=== PATIENT | female | born 1955 | race Caucasian/White ===

== ENCOUNTER 2016-10-21 20:12 | Inpatient (IN) ==
[2016-10-21] MEDS ORDERED: ZOFRAN IV ONE ×2 (21:06→23:00)
[2016-10-21] MEDS ORDERED: NS 1,000 ML IV ONE (21:06)
[2016-10-21] MEDS ORDERED: MORPHINE IV ONE (21:06)
--- NOTE | 2016-10-21 21:07 | PROVIDER DOCUMENTATION ---
HPI-Abdominal Pain/GI Problem - General Chief Complaint: Abdominal Pain Stated Complaint: ABD PAIN, KNOT IN STOMACH Time Seen by Provider: 10/21/16 20:50 Source: patient Allergies/Adverse Reactions: Patient Allergies Allergy/AdvReac Type Severity Reaction Status Date / Time No Known Allergies Allergy Verified 10/21/16 22:01 Home Medications: Home Medication List Medication Instructions Recorded Confirmed Last Taken Type Atenolol 50 mg PO DAILY 10/21/16 10/21/16 10/19/16 History Furosemide [Lasix] 40 mg PO DAILY 10/21/16 10/21/16 10/19/16 History Gabapentin 300 mg PO TID 10/21/16 10/21/16 10/19/16 History Glipizide 10 mg PO DAILY 10/21/16 10/21/16 10/19/16 History Hydrochlorothiazide 25 mg PO DAILY 10/21/16 10/21/16 10/19/16 History Levothyroxine [Synthroid] 150 microgm PO DAILY 10/21/16 10/21/16 10/19/16 History Metformin [Glucophage] 1,000 mg PO BID CC 10/21/16 10/21/16 10/19/16 History Naproxen 500 mg PO BID 10/21/16 10/21/16 10/19/16 History Nortriptyline HCl [Pamelor] 25 mg PO QPM 10/21/16 10/21/16 10/19/16 History Pantoprazole [Protonix] 40 mg PO DAILY 10/21/16 10/21/16 10/19/16 History Potassium Chloride E.r. [Klor-Con] 20 meq PO DAILY 10/21/16 10/21/16 10/19/16 History - History of Present Illness-ABD Nature of Presenting Problems: 61 year old obese WF presents with c/o umbilical abd pain with nausea, onset 2 days ago. pt reports last BM Saturday, diarrhea. pt reports she has not been eating, drinking since Saturday due to the severe nausea. Lips/mouth dry, cracked , mild/moderate distress. Subjective fever/chills. SHX: c-sect x 2, exploratory lap at the age of 13 for a ruptured appendix. Abdominal Pain Onset Location: reports: periumbilical Pain Radiation: reports: no radiation Quality of Pain: reports: aching, dull Severity in ED: reports: mild, moderate Onset/Duration: reports: 2 days ago Timing: reports: still present, constant, getting worse Activities at Onset: reports: none Exposure to sick contacts?: No Modifying Factors: improves with: nothing Associated Symptoms: reports: fever/chills (subjective), nausea, swelling/mass in abdomen. denies: vomiting, weakness Last BM: 2 days ago (diarrhea) Dark Stools Present?: reports: none noticed. denies: maroon, black, tarry, bright red blood Rectal Bleeding: reports: none. denies: bleeding without stool, bright red blood on paper, blood mixed with stool, blood streaks on stool, bloody diarrhea # of Diarrhea Episodes: 1 Rectal Pain: reports: none. denies: known anal fissure(s), known hemorrhoids, fistula, abscess # of Vomiting Episodes: 0 Emesis Description: reports: none Bruising or Bleeding Gums?: No Similar Symptoms Previously?: No Recently seen or treated by another doctor?: No Review of Systems - Adult - REVIEW OF SYSTEMS - ADULT Constitutional: reports: no symptoms reported. denies: chills, fever, fatique Eyes: reports: no symptoms reported. denies: discharge, blurred vision, double vision Ears, Nose, Mouth & Throat: reports: no symptoms reported. denies: ear discharge, ear pain, nose pain, loose teeth, throat pain, throat swelling Cardiovascular: reports: no symptoms reported. denies: chest pain, palpitations , syncope Respiratory: reports: no symptoms reported. denies: chronic cough, cough, shortness of breath, wheezing Gastrointestinal: reports: see HPI, abdominal pain, diarrhea, nausea, poor appetite. denies: hematemesis, constipation, difficulty swallowing, frequent heartburn, rectal bleeding, vomiting Genitourinary: reports: no symptoms reported. denies: dysuria, hematuria, urgency Musculoskeletal: reports: no symptoms reported. denies: bone pain, joint pain, joint swelling, neck pain Integumentary: reports: no symptoms reported. denies: hives, itching, rash, skin sores/ulcer Neurological: reports: no symptoms reported. denies: ataxia, numbness, paresthesia, seizure, tremors Psychiatric: reports: no symptoms reported Endocrine: reports: no symptoms reported Hematologic/Lymphatic: reports: no symptoms reported Allergic/Immunologic: reports: no symptoms reported All Other Systems: Reviewed and Negative Past History - Adult - PAST MEDICAL HISTORY-ADULT Review of Records: reports: Old Records Reviewed, Nursing Assessment Review, Medications Reviewed, Social history reviewed & non-contributory. Major Childhood Illnesses: reports: denies history Cardiovascular: reports: denies history Respiratory: reports: denies history Gastrointestinal: reports: GERD Obstetrical/Gynecological: reports: denies history Genitourinary: reports: denies history Musculoskeletal: reports: denies history Neurological: reports: denies history Endocrine/Immune: reports: Diabetes, thyroid disorder Diabetes Type: Type 2 Other Conditions: reports: denies history - PRIOR SURGERIES/PROCEDURES Surgical/Procedure History: reports: , bowel surgery - FAMILY HISTORY Family History: reviewed, not pertinent - SOCIAL HISTORY Smoking: denies, non-smoker Substance Use: none/never Alcohol Use Frequency: never Physical Exam-General - PHYSICAL EXAM-ADULT Initial Vital Signs Reviewed: Yes - CONSTITUTIONAL General Appearance: appears well, alert, mild distress, moderate distress, obese . negative: no apparent distress, severe distress, lethargic, slow to respond, obtunded, combative - EYES Eyes: pink conjunctivae. negative: conjuctival exudate, pale conjunctivae, photophobia, sclera injected, scleral icterus, subconjunctival hemorrhage - HEAD, EARS, NOSE, MOUTH & THROAT HENMT: normocephalic/atraumatic, moist mucous membranes, normal ENT inspection - NECK Neck: non-tender, full range of motion, supple, normal inspection - RESPIRATORY Respiratory: chest non-tender, lungs clear, normal breath sounds, no pleuratic chest pain, no respiratory distress, no accessory muscle use. negative: respiratory distress, decreased breath sounds, accessory muscle use, crackles, rales, rhonchi, stridor, wheezing - CARDIOVASCULAR Cardiovascular: normal peripheral pulses, regular rate, rhythm - GASTROINTESTINAL (ABDOMEN) Abdominal Exam: normal bowel sounds, no pulsatile mass, distended, tenderness, mass (left lateral to the umbilicus). negative: non tender, soft, guarding, rigid - GENITOURINARY Female Genitalia/Pelvic Exam: deferred Rectal Exam: deferred Hemoccult Exam: deferred - LYMPHATIC Lymphatic: no adenopathy - MUSCULOSKELETAL Back Exam: normal inspection, no CVA tenderness, no vertebral tenderness. negative: CVA tenderness, decreased range of motion, swelling, vertebral tenderness Extremity: normal range of motion, non-tender, normal gait, normal inspection, no pedal edema, no calf tenderness, normal capillary refill. negative: deformity, erythema, inflammation Peripheral Pulses: radial (R): 3+, radial (L): 3+, dorsalis-pedis (R): 3+, dorsalis-pedis (L): 3+ - SKIN Integumentary: normal color, normal turgor, warm/dry - NEUROLOGIC Neurologic: grossly normal, no motor/sensory deficits - PSYCHIATRIC Psych/Mental Status: normal mood/affect, normal thought content, normal thought process, oriented x 3 Progress - PLAN OF CARE/RESULTS Progress/Plan/Lab Results: Laboratory Tests 10/21/16 10/21/16 10/21/16 21:30 21:30 21:30 WBC 13.15 H RBC 5.28 Hgb 15.0 Hct 47.2 H MCV 89.4 MCH 28.4 MCHC 31.8 L RDW Std Deviation 14.1 Plt Count 274 MPV 9.5 Immature Gran % (Auto) 0.2 Neut % (Auto) 75.0 Lymph % (Auto) 14.9 L Cataño % (Auto) 7.1 Eos % (Auto) 2.4 Baso % (Auto) 0.4 Immature Gran # (Auto) 0.02 Neut # (Auto) 9.87 H Lymph # (Auto) 1.96 Cataño # (Auto) 0.93 H Eos # (Auto) 0.32 Baso # (Auto) 0.05 Sodium 135 L Potassium 3.8 Chloride 93 L Carbon Dioxide 28 Anion Gap 14 BUN 17 Creatinine 1.3 H Estimated GFR/1.73 m2 41 BUN/Creatinine Ratio 13 Glucose 137 H Calculated Osmolality 274 Calcium 9.3 Total Bilirubin 0.75 AST 15 ALT 14 Alkaline Phosphatase 84 Total Protein 7.8 Albumin 4.2 Globulin 3.6 Albumin/Globulin Ratio 1.2 Amylase 50 Lipase 16 Plasma Lactate 1.7 Acetone Level NEGATIVE Orders Category Date Time Status NPO Diet 10/21/16 20:21 Active ABDOMEN/PELVIS W/O CONTRAST [CT] Stat Exams 10/21/16 21:05 Taken flat [FLAT/UPRIGHT ABD/1 VIEW CHEST] [RAD] Stat Exams 10/21/16 20:22 Taken ACETONE SERUM [CHEM] Stat Lab 10/21/16 21:30 Completed AMYLASE [CHEM] Stat Lab 10/21/16 21:30 Completed CBC WITH ELECTRONIC DIFF [HEME] Stat Lab 10/21/16 21:30 Completed COMPREHENSIVE METABOLIC PANEL [CHEM] Stat Lab 10/21/16 21:30 Completed LACTATE, PLASMA [CHEM] Stat Lab 10/21/16 21:30 Completed LIPASE [CHEM] Stat Lab 10/21/16 21:30 Completed URINALYSIS W/POSS RFLX CULT [URINALYSIS] Stat Lab 10/21/16 20:21 Uncollected 0.9% Sodium Chloride Inj [Ns] 1,000 ml Med 10/21/16 21:06 Discontinued IV 999 mls/hr Hydromorphone [Dilaudid] Med 10/21/16 23:00 Discontinued 0.5 mg IV NOW ONE Morphine Med 10/21/16 21:06 Discontinued 4 mg IV NOW ONE Ondansetron [Zofran] Med 10/21/16 21:06 Discontinued 4 mg IV NOW ONE Ondansetron [Zofran] Med 10/21/16 23:00 Discontinued 4 mg IV NOW ONE Vital Signs - 24 hr 10/21/16 20:18 Temperature 98.0 F Pulse Rate 58 L Respiratory 18 Rate Blood Pressure 146/58 O2 Sat by Pulse 94 L Oximetry Reviewed radiology, labs, H&P with Dr. Guzman, agrees with plan of care and treatment. - REASSESSMENT Reassessment #1 Time Reassessed: 23:14 Status: improving (some pain relief with) - XRAY 1 XRAY Study: Abdomen Impression: Abnormal (air fluid levels, dilated loops of bowel. per Dr. Guzman.) - CT/MRI 1 CT Study: Abdomen Impression: Abnormal (hernia with bowle and atlease a partial SBO that appears to be secondary to the hernia. per Dr. Pritchett, report called to Dr. Guzman by Dr. Pritchett.) - CONSULTS/PCP/HOSPITALIST Notification #1 *Consult/PCP/Hospitalist*: Dr. Acuña Time Discussed: 23:11 Consult Disposition: Admit (admit to hospitalist and will consult in AM.) #2 Consult: Dr. Dietrich Time Discussed: 23:30 Consult Disposition: Will see in ED, Admit Departure - Departure Time of Disposition Order: 23:32 DIAGNOSIS: SBO (small bowel obstruction), Hernia Disposition: ADMITTED INPATIENT 09 Certified Medical Emergency: Emergent Condition: Stable Attestation - Physician/ KEYANA Attestation Patient care was provided by Advanced Practice Provider:: Yes Advanced Practice Provider:: Ángel Duggan Advanced Practice Provider documentation review:: The Mid-level provider documentation, treatment plan and medical decision making was reviewed by the physician who agrees with all treatment and medical decision making by the MLP.
[2016-10-21 21:45] LABS: MANUAL DIFF NEEDED? NO
[2016-10-21 21:48] LABS: BASO% 0.4 % (0.0-0.8); EOS# 0.32 X1000 (0.0-0.7); EOS% 2.4 % (0.0-10.0); HEMATOCRIT 47.2 % (37.0-47.0); IMM GRAN# 0.02 X1000 (0.0-0.04); IMM GRAN% 0.2 % (0.0-0.5); LYMPH# 1.96 X1000 (1.2-3.4); LYMPH% 14.9 % (20.5-51.1); MCH 28.4 PG (27-31); MCHC 31.8 g/dL (33-37); MCV 89.4 FL (81-99); MONO# 0.93 X1000 (0.11-0.59); MONO% 7.1 % (1.7-9.3); MPV 9.5 FL (7.4-10.4); PLT 274 X1000 (130-400); RBC 5.28 XMIL (4.2-5.4)
[2016-10-21 21:56] LABS: ACETONE SERUM NEGATIVE (NEGATIVE)
[2016-10-21 22:04] LABS: AGAP 14; ALBUMIN 4.2 g/dL (3.5-5.0); ALKALINE PHOSPHATASE 84 U/L (32-104); AMYLASE 50 U/L (20-200); BUN 17 mg/dL (8-22); CALCIUM 9.3 mg/dL (8.8-10.2); CHLORIDE 93 mmol/L (98-107); COSMO 274; GOT 15 U/L (10-30); GPT 14 U/L (10-36); LIPASE 16 U/L (13-60); POTASSIUM 3.8 mmol/L (3.5-5.1); SODIUM 135 mmol/L (136-145); TCO2 28 mmol/L (25-35); TOTAL BILIRUBIN 0.75 mg/dL (0.20-1.00); TOTAL PROTEIN 7.8 g/dL (6.3-8.3)
[2016-10-21] MEDS ORDERED: DILAUDID IV ONE ×2 (23:00→23:14)
[2016-10-21] MEDS ORDERED: ZOSYN 3.375 GM/NS 50 ML IV ONE (23:19)
--- NOTE | 2016-10-21 23:51 | ED EKG INTERP ---
EKG Interpretation - EKG Time of EKG reading by physician:: 23:40 EKG Read and Signed by:: Tree Guzman EKG Interpretation (*Must complete 3 of following elements*): Abnormal (RBBB; L anterior fascicular block; Bifascicular block; Moderate voltage criteria for LVH , may be normal variant; Possible lateral infarct, age undetermined) Rate: 67 Rhythm: NSR Attestation - Scribe Verification/Attestation Scribe:: Kranthi Natarajan Acting as Scribe for:: Tree Guzman Scribe documention review:: This chart was documented by a scribe and accurately reflects the service the provider performed and the decisions made by the provider.
[2016-10-22] MEDS ORDERED: MARCAINE 0.25% PF/EPI 1:200,000 ONE (00:46)
[2016-10-22 00:56] LABS: HEMOGLOBIN A1C 6.2 % (4.8-6.0)
[2016-10-22] MEDS ORDERED: FENTANYL ONE (02:29)
[2016-10-22] MEDS ORDERED: DIPRIVAN 1% ONE (02:29)
[2016-10-22] MEDS: MORPHINE ONE ×2 (02:36→02:49)
[2016-10-22] MEDS ORDERED: TORADOL ONE (02:59)
[2016-10-22] MEDS ORDERED: LR 1,000 ML ONE (03:00)
--- NOTE | 2016-10-22 03:22 | HISTORY AND PHYSICAL ---
REASON FOR ADMISSION: A 2-day history of periumbilical pain. HISTORY OF PRESENT ILLNESS: Ms. Юлия Nuno is a 61-year-old lady with a past medical history of type 2 diabetes, hypertension, and hypothyroidism who comes in today complaining of a 2- day history of periumbilical pain which is sharp constant, worse with movement. All this started after eating her dinner. She reports having 6 episodes of nonbloody diarrhea prior to the onset of her pain. She denies any vomiting occurred with this. She reported that late that evening, she noticed "a lump just below her umbilicus" and found it was very tender when she touched it. Ever since then, the pain has been constant and getting worse. Patient reports that since the early hours of Saturday, she has had not passed any gas or had any bowel movements. She has tried drinking water but she said this makes her feel nauseous. No vomiting per se. No fever. No chills. No genitourinary complaints. No cardiorespiratory complaints. No polyuria, polydipsia, or polyphagia. No lightheadedness. No neurological complaints. REVIEW OF SYSTEMS: Twelve system review is negative. Positive findings as per HPI. ALLERGIES: None. MEDICATIONS: She is on atenolol 50 mg daily, gabapentin 200 mg t.i.d., glipizide 10 mg daily, metformin 1000 mg b.i.d., hydrochlorothiazide 25 mg daily, potassium 20 mEq daily, Lasix 40 mg daily, naproxen 500 mg b.i.d., Tylenol 25 mg q.p.m., Protonix 40 mg daily, levothyroxine 150 mcg daily. FAMILY HISTORY: Notable for diabetes. SOCIAL HISTORY: Does not smoke, drink, or use drugs. She is . PAST SURGICAL HISTORY: She only had a and appendectomy. LABORATORY WORK: White count 13,000, hemoglobin and hematocrit 15.7, platelets 274,000. Sodium 135, BUN 17, creatinine 1.3, glucose 137. Lipase, lactate, amylase all negative. Hepatic function tests all negative. Acetone negative. The patient's EKG shows normal sinus rhythm with a right bundle-branch block with left axis deviation PHYSICAL EXAMINATION: GENERAL: Morbidly obese, middle-aged, woman who is in mild distress from her pain. She is A and O x3 with normal mood and affect. She is anxious. VITAL SIGNS: Blood pressure 99/74, pulse is 68, respirations 18, temperature is 98, she is 93% on room air. HEENT: Head is normocephalic, atraumatic. Eyes, PERRLA, EOMI. She is anicteric, not pale. ENT and oropharynx exam is grossly normal. NECK: Supple. No JVD. No carotid bruit. No thyromegaly. CHEST: Clear to auscultation with good air entry in both lung collins. CARDIOVASCULAR: First and second heart sounds heard. No gallops, murmurs, or rubs. Rhythm is regular. ABDOMEN: Protuberant, soft, with tenderness confined to the left infraumbilical area. There is notable swelling in that area and it is firm to touch. On coughing, there is slight pulsatile expansile fremitus noticed. Bowel sounds are not heard. No organomegaly noted. Tenderness confined to the left lower quadrant and suprapubic areas. No rebound appreciated. The swelling is not reducible. I can get above it and below it. RECTAL: Examination is deferred. EXTREMITIES: No edema, clubbing, or cyanosis. Pulses distally intact with good volume. NEUROLOGICAL: No focal deficits. SKIN: Intact. No breakdown, lesions, or erythema. MUSCULOSKELETAL: Muscular examination is grossly normal. ASSESSMENT: 1. Incarcerated umbilical hernia. 2. Small bowel obstruction secondary to #1. 3. Type 2 diabetes. 4. Hypothyroidism. 5. Hypertension. PLAN: At this time, the patient was seen by a doctor in the ER and he is going to take her for urgent surgery. From my medical standpoint, patient is at usual risk for any cardiovascular event and can complete her surgery due to the emergent nature of her symptoms. I will start her on a low sliding scale. We will hold diuretics and blood pressure medication due to the fact that her blood pressure is marginal at this point in time. However, we only continue with low-dose beta blockers so she does not go into beta-jamila withdrawal. We will adjust the dose of her IV thyroid medication to a much lower dose, being that they usually the oral bioavailability of thyroid medication is much lower. Hydrate patient for now until blood pressure is slightly elevated and if need be, may resume Lasix. DVT prophylaxis for now is SCDs and surgeon is to decide if Lovenox can be initiated at a later date. Empiric antibiotics (i.e., Zosyn) have been started. I sincerely doubt this patient does not have early onset of small bowel gangrene. Lactate levels are normal. We will repeat EKG in the morning to ensure patient does not progress to full heart block. This is because her EKG shows right bundle-branch block with left anterior hemiblock. Thus, we need to be very cautious with the use of beta blockers.
[2016-10-22] MEDS ORDERED: MORPHINE IV PRN ×2 (04:07→04:18)
[2016-10-22] MEDS ORDERED: SODIUM CHLORIDE 0.9% INJ ONE ×2 (04:07)
[2016-10-22] MEDS ORDERED: DUONEB (A & A) INH PRN (04:07)
[2016-10-22] MEDS ORDERED: TYLENOL PO PRN (04:07)
[2016-10-22] MEDS ORDERED: ZOFRAN IV PRN (04:07)
[2016-10-22] MEDS ORDERED: HUMALOG SUBQ ONE (04:07)
[2016-10-22] MEDS ORDERED: NS 1,000 ML IV SCH (04:07)
[2016-10-22] MEDS ORDERED: NORCO-10 PO PRN (04:21)
[2016-10-22] MEDS ORDERED: LR 1,000 ML IV SCH (04:30)
[2016-10-22] MEDS ORDERED: D50W SYRINGE IV PRN (04:35)
[2016-10-22] MEDS: OFIRMEV 1000 MG/ISOTONIC SOLN 100 ML IV SCH ×4 (04:39→23:47)
--- NOTE | 2016-10-22 04:44 | CONSULTATION ---
HISTORY OF PRESENT ILLNESS: Ms. Юлия Nuno is a 61-year-old, white female, a patient of Dr. Elizalde, who has a 3-day history of periumbilical pain and abdominal distention. She has not eaten well in the last 3 days. She has had increasing pain in this area and presented to [facility] Emergency Department. She was evaluated by the ED staff including a CT scan of her abdomen and pelvis which suggested a strangulated hernia in the periumbilical area and a small bowel obstruction. We were asked to see her urgently for a strangulated hernia. She has had previous abdominal surgery. PAST MEDICAL HISTORY: , open appendectomy, hypertension, fibromyalgia, osteoporosis. MEDICATIONS: Naproxen, hydrochlorothiazide, glipizide, Protonix, atenolol, Glucophage, Pamelor, Lasix, gabapentin, potassium chloride, and Synthroid. ALLERGIES: No known drug allergies. SOCIAL HISTORY: She is retired. Lives in [place]. Her was at the bedside. She does not smoke. REVIEW OF SYSTEMS: A 14-point review of systems was performed and was essentially negative except for the history of present illness. FAMILY HISTORY: Noncontributory. PHYSICAL EXAMINATION: GENERAL: Ms. Nuno is an older, white female. She is overweight. She is in no acute distress. She is awake and cooperative. HEENT: She has nasal cannula in place. No jaundice. No oral lesions. LYMPHATICS: No cervical or supraclavicular lymphadenopathy. HEART: Has a regular rate. LUNGS: Clear to auscultation and percussion bilaterally. ABDOMEN: Distended but not tightly. She had a tender mass in the periumbilical area. She has a well-healed lower midline incision. RECTAL/VAGINAL: Examinations were not performed. EXTREMITIES: She does have palpable peripheral pulses. No peripheral edema. NEUROLOGICAL: She is alert and oriented x3, and appropriate. DIAGNOSTIC DATA: CT scan shows a strangulated hernia in the periumbilical area which could be related to her previous lower midline incision. IMPRESSION: Strangulated umbilical or ventral (incisional) hernia. PLAN: Urgent repair, possibly using mesh, of this strangulated hernia that contains small bowel and is also causing a small bowel obstruction. I have discussed the procedure in detail with the patient and her at the bedside in the emergency department. We specifically discussed risks of surgery which include bleeding, infection, recurrent hernia, possible gangrenous bowel requiring resection of small bowel, possible use of mesh, possible wound infection or infection of the mesh requiring its removal. She understands the need for this urgent surgery and its risks, and she wants to proceed.
[2016-10-22] MEDS: PROTONIX IV SCH (04:46)
[2016-10-22] MEDS ORDERED: SYNTHROID IV ONE (05:00)
[2016-10-22] MEDS: LOPRESSOR IV SCH ×4 (05:02→23:54)
[2016-10-22] MEDS: LOVENOX SUBQ SCH (05:02)
[2016-10-22] MEDS: ZOSYN 3.375 GM/NS 50 ML IV SCH ×4 (05:02→23:47)
--- NOTE | 2016-10-22 05:14 | OPERATIVE NOTE ---
PROCEDURE DATE: 10/22/2016 PREOPERATIVE DIAGNOSIS: Strangulated ventral hernia. POSTOPERATIVE DIAGNOSIS: Strangulated ventral hernia. PRINCIPAL PROCEDURE: Open repair of strangulated ventral hernia using composite Parietex mesh. SURGEON: Angelique Fountain MD. TIE IN MACHINE OPERATOR: NADIYA Choi. ANESTHESIA: General in addition to local anesthetic. ESTIMATED BLOOD LOSS: 25 mL. DRAINS: None. INDICATIONS: Ms. Юлия Nuno is a 61-year-old, overweight, white female who had a 3-day history of periumbilical discomfort and also abdominal distention with some nausea. She had not eaten well in the last 3 days. She did present to our emergency department because of increasing lower abdominal pain. A CT scan was performed which suggested a strangulated hernia, as did her exam. Urgent operation was recommended. FINDINGS: She did have a knuckle of small bowel in the strangulated hernia and it was compromised but I felt that it would live as we released the pressure of the strangulated hernia so I placed it back intra-abdominally and decided to use a 6.4 cm in diameter, round, reinforced composite Parietex mesh to repair this hernia. DESCRIPTION OF PROCEDURE: The patient was brought to the operating room, placed supine, received general anesthesia, and was intubated. Her entire abdomen was prepped and draped within the sterile field. She had already received IV Zosyn. You could feel the strangulated hernia. The overlying skin looked normal. We made a midline incision just below the umbilicus in a previous well-healed scar for a distance of about 4-6 cm. It was carried down through the skin and subcutaneous tissue to the strangulated hernia. The hernia was a fascial defect that was small just below the umbilicus within the midline. The hernia itself contained omentum and a loop of small bowel which was compromised. It was bruised and dark but I felt, as we relieved the pressure, that it looked more viable and I felt that we did not have to resect it. I felt that it would be viable and felt good enough about this that I even repaired the fascial defect using mesh. We will have to watch her closely. I reduced the hernia contents. I used a 6.4 cm piece of mesh and placed it intra-abdominally. I secured it to the fascial defect with [id number] Prolene stitches. I closed the fascial defect over the mesh. I used 3-0 popoff Vicryl stitches to reapproximate the subcutaneous tissue. Then I closed the skin with a skin clip network project manager. It must be noted that we thoroughly irrigated the wound prior to its closure. Xeroform followed by dry dressings were applied. Plans are for her to go to the recovery room. She will be hospitalized and we will watch her clinically. I spoke with her after the procedure.
--- NOTE | 2016-10-22 05:44 | EKG Report ---
Test Performed on : 10/21/2016 11:40:22 PM Test Reason : admission Blood Pressure : / mmHG Vent. Rate : 067 BPM Atrial Rate : 067 BPM P-R Int : 192 ms QRS Dur : 148 ms QT Int : 424 ms P-R-T Axes : 042 -71 009 degrees QTc Int : 448 ms Normal sinus rhythm. Right bundle branch block Left anterior fascicular block Bifascicular block Moderate voltage criteria for LVH, may be normal variant Possible Lateral infarct , age undetermined Abnormal ECG No previous ECGs available Unconfirmed Result
[2016-10-22 06:28] LABS: MANUAL DIFF NEEDED? NO
[2016-10-22 06:48] LABS: CALCIUM 8.7 mg/dL (8.8-10.2); POTASSIUM 4.6 mmol/L (3.5-5.1)
[2016-10-22 06:58] LABS: BASO% 0.3 % (0.0-0.8); EOS# 0.06 X1000 (0.0-0.7); EOS% 0.4 % (0.0-10.0); HEMOGLOBIN 12.9 g/dL (12.0-16.0); IMM GRAN# 0.03 X1000 (0.0-0.04); IMM GRAN% 0.2 % (0.0-0.5); LYMPH# 1.35 X1000 (1.2-3.4); LYMPH% 9.9 % (20.5-51.1); MCH 28.7 PG (27-31); MCHC 31.5 g/dL (33-37); MCV 91.1 FL (81-99); MONO% 5.2 % (1.7-9.3); PLT 228 X1000 (130-400)
--- NOTE | 2016-10-22 07:41 | PROGRESS NOTE ---
DATE: 10/22/2016 SUBJECTIVE: Ms. Юлия Nuno early this morning underwent an open repair of a strangulated ventral hernia using mesh. She did have a segment of compromised bowel that was in the hernia, but I felt that it would remain viable and therefore did not do a small bowel resection. She is awake in her room later this morning. She clinically feels better. OBJECTIVE: Her heart rate is 71. Blood pressure was 108/76, O2 saturation 94%. She does not have a Reyes catheter tube in. She is voiding without difficulty. Her wound is dressed. She has no evidence of acute abdomen. She still remains distended. The hernia had caused small bowel obstruction. PLAN: We will continue IV fluids, Toradol and pain medication. She is also on IV Tylenol. Will begin clear liquids and follow her clinically.
[2016-10-22 07:55] LABS: URINE MICRO REVIEW NEEDED? NO; URINE SOURCE CATH
[2016-10-22 08:03] LABS: BILIRUBIN URINE NEGATIVE (NEGATIVE); BLOOD URINE NEGATIVE (NEGATIVE); COLOR YELLOW; GLUCOSE URINE NEGATIVE (NEGATIVE); LEUKOCYTES URINE NEGATIVE (NEGATIVE); NITRITE URINE NEGATIVE (NEGATIVE); PH URINE 5.5; PROTEIN URINE TRACE mg/dL (NEGATIVE); SP GRAVITY URINE 1.026; TURBIDITY URINE CLEAR (CLEAR); UR EPITHELIAL CELLS <10 /HPF (<10); URINE BACTERIA NEGATIVE /HPF; URINE RBC <10 /HPF (<10); URINE WBC <10 /HPF (<10); UROBILINOGEN URINE NORMAL (NORMAL)
--- NOTE | 2016-10-22 08:04 | EKG Report ---
Test Performed on : 10/22/2016 06:50:20 AM Test Reason : abn ekg Blood Pressure : / mmHG Vent. Rate : 067 BPM Atrial Rate : 067 BPM P-R Int : 200 ms QRS Dur : 148 ms QT Int : 444 ms P-R-T Axes : 049 -63 012 degrees QTc Int : 469 ms Normal sinus rhythm. Right bundle branch block Left anterior fascicular block Bifascicular block Minimal voltage criteria for LVH, may be normal variant Abnormal ECG When compared with ECG of 21-OCT-2016 23:40, (Unconfirmed) Borderline criteria for Lateral infarct are no longer present Confirmed by Pelon DAVIS, Martínez Florian ([id number]) on 10/22/2016 4:27:04 PM
--- NOTE | 2016-10-22 08:15 | Diag Imaging Result Document ---
PROCEDURE NAME: FLAT/UPRIGHT ABD/1 VIEW CHEST - 10/21/2016 FLAT AND UPRIGHT ABDOMEN: FINDINGS: There is some gas and stool in the ascending colon. The stomach is not distended. There are small-bowel loops distended with gas in the left upper quadrant and mid abdomen. There are no previous studies. There is no evidence of organomegaly or mass. IMPRESSION: Early or partial small-bowel obstruction. PA CHEST: FINDINGS: The heart size is slightly enlarged. There is no evidence of acute pulmonary disease. Compared to 09/19/2016, there has been no significant change in the appearance of the chest. IMPRESSION: Stable chest.
[2016-10-22] MEDS ORDERED: XYLOCAINE-MPF 2% ONE (08:48)
[2016-10-22] MEDS ORDERED: NEO-SYNEPHRINE ONE (08:48)
[2016-10-22] MEDS ORDERED: NORCURON ONE (08:48)
[2016-10-22] MEDS ORDERED: EPHEDRINE ONE (08:48)
[2016-10-22] MEDS ORDERED: NEOSTIGMINE ONE (08:48)
[2016-10-22] MEDS ORDERED: ROBINUL ONE (08:48)
[2016-10-22] MEDS ORDERED: ZOFRAN ONE (08:48)
[2016-10-22] MEDS ORDERED: EXTENSION SET 32 IN 4522 ONE (08:49)
[2016-10-22] MEDS ORDERED: QUELICIN (DOSE) ONE (08:49)
[2016-10-22] MEDS ORDERED: ANESTHESIA PB SET 88 IN 5742 ONE (08:49)
[2016-10-22] MEDS: NEURONTIN PO SCH ×3 (08:49→20:43)
[2016-10-22] MEDS: TORADOL IV SCH ×3 (08:49→20:47)
[2016-10-22] MEDS ORDERED: CLAVE SECONDARY SET 11953 ONE (08:49)
[2016-10-22] MEDS ORDERED: DECADRON ONE (08:49)
[2016-10-22] MEDS ORDERED: LR 2,000 ML ONE (08:49)
[2016-10-22] MEDS: PERIDEX MT SCH ×2 (08:49→20:43)
[2016-10-22] MEDS: MORPHINE IV PRN ×3 (08:57→16:46)
--- NOTE | 2016-10-22 10:05 | Diag Imaging Result Document ---
PROCEDURE NAME: ABDOMEN/PELVIS W/O CONTRAST - 10/21/2016 CT ABDOMEN AND PELVIS WITHOUT CONTRAST: COMPARISON: None available. FINDINGS: There is a moderate size umbilical hernia containing mesenteric fat and a loop of small bowel. Just proximal to this herniated loop of bowel, there is moderate small-bowel distention with air-fluid levels indicating associated obstruction. Distal to the hernia, the small bowel is nondistended. There is a small amount of free fluid that is layering in the pelvis. No free abdominal gas is identified. There is mild uncomplicated diverticulosis coli. The remainder of the solid viscera of the abdomen and pelvis and the remainder of the GI tract is essentially unremarkable. IMPRESSION: 1. Moderate size umbilical hernia with a small loop of incarcerated small bowel and associated small-bowel obstruction as described above. 2. This critical result was called to Dr. Guzman in the emergency department at 10:[address] David Pritchett.
[2016-10-22] MEDS: HUMALOG SUBQ SCH ×3 (11:52→20:46)
[2016-10-22] MEDS: LR 1,000 ML IV SCH ×2 (17:34→20:43)
[2016-10-23] MEDS ORDERED: NS 500 ML IV ONE ×2 (01:18→03:20)
[2016-10-23 01:56] LABS: CALCIUM 8.8 mg/dL (8.8-10.2); POTASSIUM 4.5 mmol/L (3.5-5.1)
[2016-10-23] MEDS: PROTONIX IV SCH (03:08)
[2016-10-23] MEDS: LR 1,000 ML IV SCH ×4 (04:14→23:39)
[2016-10-23] MEDS: LOPRESSOR IV SCH ×2 (05:07→17:59)
[2016-10-23] MEDS: LOVENOX SUBQ SCH (05:10)
[2016-10-23] MEDS: ZOSYN 3.375 GM/NS 50 ML IV SCH (05:10)
[2016-10-23 05:39] LABS: MANUAL DIFF NEEDED? NO
[2016-10-23 05:57] LABS: BASO% 0.3 % (0.0-0.8); EOS# 0.19 X1000 (0.0-0.7); EOS% 2.2 % (0.0-10.0); HEMOGLOBIN 10.4 g/dL (12.0-16.0); LYMPH# 1.62 X1000 (1.2-3.4); LYMPH% 18.4 % (20.5-51.1); MCHC 30.6 g/dL (33-37); MCV 94.7 FL (81-99); MONO# 0.93 X1000 (0.11-0.59); MONO% 10.6 % (1.7-9.3); MPV 9.8 FL (7.4-10.4); NEUT% 68.5 % (42.2-75.2); PLT 168 X1000 (130-400); RBC 3.59 XMIL (4.2-5.4)
[2016-10-23 06:05] LABS: ALBUMIN 3.2 g/dL (3.5-5.0); CALCIUM 8.1 mg/dL (8.8-10.2); POTASSIUM 4.5 mmol/L (3.5-5.1); TOTAL BILIRUBIN 0.52 mg/dL (0.20-1.00); TOTAL PROTEIN 6.2 g/dL (6.3-8.3)
[2016-10-23] MEDS: HUMALOG SUBQ SCH ×3 (06:13→22:14)
[2016-10-23] MEDS: PERIDEX MT SCH ×2 (08:52→23:37)
[2016-10-23] MEDS: MORPHINE IV PRN (08:52)
[2016-10-23] MEDS: NEURONTIN PO SCH ×3 (08:57→22:14)
[2016-10-23] MEDS: ZOSYN 2.25 GM/NS 50 ML IV SCH ×2 (09:06→18:03)
[2016-10-23 10:09] LABS: CALCIUM 8.3 mg/dL (8.8-10.2); POTASSIUM 4.6 mmol/L (3.5-5.1)
[2016-10-23 11:51] LABS: UR CREAT RANDOM 153.7 mg/dL (11-20); UR PROT RANDOM 84.4 mg/dL
[2016-10-23 12:06] LABS: UR SODIUM < 10 mmoll
--- NOTE | 2016-10-23 13:31 | Diag Imaging Result Document ---
PROCEDURE NAME: US RENAL 2 (RETROPER) COMPLETE - 10/23/2016 RENAL ULTRASOUND: COMPARISON: None available. FINDINGS: The kidneys are grossly normal in echotexture with no discrete renal mass or hydronephrosis. The right kidney measures 10.7 cm and the left kidney measures 9.8 cm in the greatest longitudinal axes. The right renal cortex measures up to 0.8 cm and the left renal cortex measures up to 0.7 cm in thickness. The urinary bladder was obscured by an overlying surgical bandage. IMPRESSION: Grossly unremarkable renal ultrasound.
--- NOTE | 2016-10-23 14:23 | CONSULTATION ---
DATE OF CONSULTATION: 10/23/2016 REASON FOR ADMISSION: Periumbilical pain with small-bowel obstruction. REASON FOR CONSULT: Acute kidney injury. CONSULTING PHYSICIAN: Dr. Quick. HISTORY OF PRESENT ILLNESS: Ms. Nuno is a 61-year-old white female who has not been seen in our office in the past as a patient. Subsequently, she has diabetes mellitus type 2 with hypertension and hypothyroidism, states that 2 days prior to coming into the hospital she started with severe abdominal pain. It continued to worsen with any type of movement. She states that she had non bloody diarrhea, watery stool prior to coming in. She denies any emesis. No nausea, though decreased appetite. She denies any fever or chills. No chest pain. No increased work of breathing. Upon admission to [facility] it was found that she was very tender to touch after she had noticed a lump just below her umbilicus before she came in. After arrival she had a CT of the abdomen which showed incarcerated bowel with an umbilical hernia. Patient was subsequently taken to surgery by Dr. Fountain with repair. During this hospitalization she states that she does not have any appetite, she states that she stays nauseated at all times and has had different episodes of emesis which she wants to prevent. She is still on clear liquids. She has not been advanced and she states that she does not like to eat except for ice chips. PAST MEDICAL HISTORY: She has a baseline creatinine of 1.3 in 2016 earlier and from 2014 diabetes mellitus type 2, hypertension, hypothyroidism. Patient states that she has neuropathy, swelling, chronic pain mostly to her back, and reflux. SURGICAL HISTORY: She has had a section, appendectomy, and a recent small-bowel hernia repair per Dr. Fountain. FAMILY HISTORY: Positive for diabetes. Negative for renal disease. SOCIAL HISTORY: She is currently. She is a of a previous patient for Dr. Santo. She denies any tobacco, alcohol or illicit drug use. CURRENT ALLERGIES: Listed as no known drug allergies. HOME MEDICATIONS: Atenolol, gabapentin, glipizide, metformin, hydrochlorothiazide, potassium, Lasix, naproxen, Tylenol, Protonix, and levothyroxine. REVIEW OF SYSTEMS: Times 10 with pertinent positives listed above in the HPI. VITAL SIGNS: Her most recent vital signs are stable. Her temperature is 98 degrees, blood pressure 119/50, heart rate 69, respirations are 18. She is currently on room air. LABS: Sodium 139, potassium 4.5, chloride 98, CO2 26, BUN 33, creatinine 3.6, glucose 74, anion gap of 17, calcium 8.1, albumin 3.2, with a TSH of 8.53. Her white count is 8.9 , hemoglobin 10.4, hematocrit 34, with a platelet count of a 168,000. Patient's amylase is 50, her lipase is 16, her lactic acid is 1.7. Acetone is negative. PHYSICAL EXAMINATION: General: This is a 61-year-old white female. She appears chronically ill. She is in no acute distress. Skin: Warm and dry. HEENT: Normocephalic, atraumatic. Conjunctiva is pale. She has KASSY. Mucous membranes are moist. Neck: Supple. Trachea midline. No JVD. Cardiovascular: Regular rate and rhythm. She is without murmur or gallop. Lungs: Clear to auscultation anterior. Equal excursion on room air. Abdomen: Remains protuberant. Tenderness over the left infraumbilical area after repair. Hypoactive bowel sounds noted. Tenderness on palpation. Genitourinary: Reyes catheter remains in place. She has decreased urinary output. Extremities: She has trace pretibial edema. No clubbing or cyanosis. Integumentary: No rashes or lesions noted with dressing to mid abdominal area status post surgery repair. Neurological: She is alert and oriented x3. ASSESSMENT AND PLAN: 1. Acute kidney injury on chronic kidney disease stage 3. Patient's baseline creatinine is 1.3 noted in 2015 to 2016. Her estimated GFR at that time was 42%. She is has a creatinine now up to 3.6. We had ordered urine electrolytes earlier indicating a FENa score of 0.17%. The patient currently has LR infusing at 150 mL an hour. Ultrasound is currently pending with decreased urinary output. We will change her antibiotic dose to renal dosing and decrease her gabapentin to renal dose. 2. Electrolytes remain stable. 3. Acid-base balance. This is stable. 4. Anemia. This remains low but stable. 5. Status post incarcerated umbilical hernia repair with Dr. Fountain following. 6. Hypothyroidism. TSH is elevated. She has now been re-dose with her Synthroid. I would like to thank you for allowing us to follow with this patient. Seen, data reviewed, discussed with Katina Velez on 10/23/16. I agree with the above assessment and plan of care. rg Dictated by VANIA Wolff for Darion Santo MD [facility]
--- NOTE | 2016-10-23 15:10 | Diag Imaging Result Document ---
PROCEDURE NAME: HEAD W/O CONTRAST - 10/23/2016 CT BRAIN WITHOUT CONTRAST. DOSE REDUCTION PROTOCOL. FINDINGS: No parenchymal hemorrhage. No epidural or subdural hematoma. No subarachnoid hemorrhage. No hydrocephalus. No mass identified on this noncontrasted exam. No sinus opacification and no air fluid levels. IMPRESSION: No hemorrhage. Negative brain CT without contrast.
[2016-10-23 15:23] LABS: MANUAL DIFF NEEDED? NO
[2016-10-23 15:29] LABS: BASO% 0.4 % (0.0-0.8); EOS# 0.27 X1000 (0.0-0.7); EOS% 2.9 % (0.0-10.0); HEMATOCRIT 35.5 % (37.0-47.0); HEMOGLOBIN 10.8 g/dL (12.0-16.0); IMM GRAN# 0.05 X1000 (0.0-0.04); IMM GRAN% 0.5 % (0.0-0.5); LYMPH# 1.28 X1000 (1.2-3.4); LYMPH% 13.9 % (20.5-51.1); MCHC 30.4 g/dL (33-37); MCV 95.2 FL (81-99); MONO# 0.78 X1000 (0.11-0.59); MONO% 8.5 % (1.7-9.3); MPV 9.9 FL (7.4-10.4); NEUT% 73.8 % (42.2-75.2); PLT 169 X1000 (130-400); RBC 3.73 XMIL (4.2-5.4)
[2016-10-23 16:00] LABS: ALBUMIN 3.7 g/dL (3.5-5.0); CALCIUM 8.5 mg/dL (8.8-10.2); POTASSIUM 4.8 mmol/L (3.5-5.1); TOTAL BILIRUBIN 0.57 mg/dL (0.20-1.00); TOTAL PROTEIN 6.3 g/dL (6.3-8.3)
--- NOTE | 2016-10-23 17:15 | PROGRESS NOTE ---
DATE: 10/23/2016 SUBJECTIVE: This patient is resting comfortably on the bed, she is alert, she is oriented in person and place. She is able to recognize her , she knows that she lives in [place]. She is not oriented in time, she is not answering most of my questions like who is the program manufacturing leader. It looks like she is not able to focus her sight directly to a point. But she is able to say how many fingers do I have in a certain moment. Family members at the bedside. She has an episode of confusion today and because of that we asked for a CT of the head without contrast, that did not show any abnormality. OBJECTIVE: Vital Signs: Temperature 99.5 degrees, pulse 75, respiratory rate 18, blood pressure 126/53, oxygen saturation 92% on 3 L of nasal cannula. HEENT: Head normocephalic. No trauma. PERRLA. Neck: Supple. No JVD. No masses. Central trachea. Chest: Clear to auscultation. Mild rales at the bases. Cardiovascular: RRR. No murmurs. No gallops. No rubs. Abdomen: Soft. Mildly distended. Mild tenderness to palpation around the perioperative area. No rebound. Extremities: No edema. No clubbing. No cyanosis. Neurological: The patient is alert, oriented x2, and she is not oriented in time. Like I said before, she is able to recognize her . LABORATORY: WBC 9.1, hemoglobin 10.8, hematocrit 35.5, platelets 169,000. Sodium 136, potassium 4.8, chloride 96, bicarbonate 23, BUN 36, creatinine 3.4, glucose 91, calcium 8.5. ASSESSMENT AND PLAN: 1. Strangulated ventral hernia repair, postoperative day #1, the abdominal wound looks fine, no signs of infection or bleed. Surgery Department is following this patient. We will continue following their recommendations. 2. Altered mental status. We will continue to monitor this patient. She went for surgery yesterday and today she had acute kidney injury, at this point, we are not sure about these mental changes. We will continue to monitor. 3. Acute on chronic kidney disease. I will continue with IV fluids. Nephrology Department is following this patient. We will continue following their recommendations. 4. Type 2 diabetes. The blood sugar has been stable. We will continue with the same management. 5. Hypothyroidism. TSH and T4 are elevated, in the case of taking too much medications the TSH will be low. For now, I will continue with the same management and I will repeat the TSH and T4 in a few days. 6. Hypertension. The blood pressure is stable, we will continue to monitor. 7. Deep venous thrombosis prophylaxis. This patient is on Lovenox.
[2016-10-23] MEDS ORDERED: TYLENOL PR PRN (21:22)
[2016-10-24] MEDS: ZOSYN 2.25 GM/NS 50 ML IV SCH ×4 (00:49→23:50)
[2016-10-24] MEDS: LOPRESSOR IV SCH ×6 (00:49→23:50)
[2016-10-24] MEDS: PROTONIX IV SCH (03:34)
[2016-10-24] MEDS: SODIUM CHLORIDE 0.9% INJ PRN (03:34)
[2016-10-24] MEDS: LR 1,000 ML IV SCH ×3 (04:45→15:44)
[2016-10-24] MEDS: LOVENOX SUBQ SCH (05:39)
[2016-10-24 06:14] LABS: MANUAL DIFF NEEDED? NO
[2016-10-24 06:20] LABS: BASO% 0.4 % (0.0-0.8); EOS# 0.11 X1000 (0.0-0.7); EOS% 1.3 % (0.0-10.0); HEMATOCRIT 32.5 % (37.0-47.0); HEMOGLOBIN 9.7 g/dL (12.0-16.0); IMM GRAN# 0.04 X1000 (0.0-0.04); IMM GRAN% 0.5 % (0.0-0.5); LYMPH# 1.49 X1000 (1.2-3.4); LYMPH% 17.4 % (20.5-51.1); MCH 28.3 PG (27-31); MCHC 29.8 g/dL (33-37); MCV 94.8 FL (81-99); MONO# 0.91 X1000 (0.11-0.59); MONO% 10.7 % (1.7-9.3); MPV 10.3 FL (7.4-10.4); NEUT% 69.7 % (42.2-75.2); PLT 165 X1000 (130-400); RBC 3.43 XMIL (4.2-5.4)
[2016-10-24 06:42] LABS: ALBUMIN 3.2 g/dL (3.5-5.0); CALCIUM 8.7 mg/dL (8.8-10.2); POTASSIUM 4.4 mmol/L (3.5-5.1); TOTAL BILIRUBIN 0.53 mg/dL (0.20-1.00); TOTAL PROTEIN 6.4 g/dL (6.3-8.3)
[2016-10-24] MEDS: HUMALOG SUBQ SCH ×5 (09:56→20:20)
[2016-10-24] MEDS ORDERED: DULCOLAX PR ONE (10:11)
[2016-10-24] MEDS ORDERED: BLISTEX MEDICATED BERRY LIP BALM TOP PRN (10:11)
[2016-10-24] MEDS ORDERED: DILAUDID IV PRN (10:14)
--- NOTE | 2016-10-24 12:48 | PROGRESS NOTE ---
DATE: 10/24/2016 TIME SEEN: 0755 hours. SUBJECTIVE: Ms. Nuno is resting quietly in bed. She remains confused. Her is at her bedside. She is unable to follow any commands. OBJECTIVE: Her most recent vital signs: Temperature 99.7 degrees, blood pressure 168/67, heart rate 71, respirations 18. She is on 3 L nasal cannula. Last recorded saturation 92%. She has had 487 in; she has had 1400 out per Reyes catheter. LABORATORY DATA: This a.m. sodium 142, potassium 4.4, chloride 102, CO2 24, BUN 39, creatinine 2.6, glucose 109. Anion gap 16, calcium 8.7, albumin 3.2. White count 8.54, hemoglobin 9.7, hematocrit 32.5 with a platelet count of 165. Her total bilirubin is 0.53, AST 28, ALT 24. OBJECTIVE: General: On physical exam, this is a 61-year-old white female. She is resting quietly in bed, although she remains confused. She is unable to follow any commands. Neurologic: Her pupils are unequal; left pupil is larger than the right, although they do respond equally to light. She has no helicopter officer. Unable to follow commands in regards with that. She does turn her head to look at you with verbal commands, although she does not have any recognition. Patient had a CT of the head done yesterday evening, which was essentially negative. She has now had her pain medications stopped. HEENT: Normocephalic, atraumatic. Conjunctiva is pale. Pupils unequal. They do move to light. Neck: Supple. Trachea midline. Unable to determine JVD due to patient cooperation. Cardiovascular: She is regular rate and rhythm. She is without murmur or gallop. Lungs: Clear to auscultation anteriorly. Equal excursion. She is on O2. Abdomen: Round, protuberant. No tenderness noted in the infraumbilical area secondary to repair. Hypoactive bowel sounds continue. Genitourinary: Reyes catheter remains in place. Adequate urine out. Extremities: Have trace pretibial edema. No clubbing or cyanosis. Integumentary: No rashes or lesions evident with dressing to the umbilical area. ASSESSMENT AND PLAN: 1. Acute kidney injury on chronic kidney disease stage III. Patient's baseline creatinine is at 1.3; it has improved in the last 24 hours. We agree with continuing lactated Ringer's at 100 mL an hour. 2. Electrolytes. These are stable. 3. Acid-base balance. This is stable. 4. Anemia. This remains low, but stable. 5. Altered mental status. CT of the head that was completed yesterday without contrast shows negative brain CT. 6. Status post abdominal hernia repair. Dr. Fountain is following. I would like to thank you for allowing us to follow with this patient. Seen, data reviewed, discussed with Katina Velez on 10/24/16. I agree with the above assessment and plan of care. rg Dictated by VANIA Wolff for Darion Santo MD [facility]
--- NOTE | 2016-10-24 13:28 | PROGRESS NOTE ---
DATE: 10/24/2016 Ms. Юлия Nuno is a 61-year-old white female who is now postop day 2 of a strangulated ventral hernia repair. 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 She did have a knuckle of small bowel within this hernia but we felt as we released it that it would be viable, and we repaired this hernia defect with a 6.4 cm in diameter round piece of mesh. Later in the morning on Saturday, I evaluated her and she seemed to be doing well. Yesterday she began clinically worsening with increasing abdominal pain and decreased urine output. The hospitalists gave her more fluid. Nephrology was involved and this morning I got a call about her abdominal pain and the need for possible placement of an NG tube. On exam, her abdomen is not tightly distended but it is distended and tender, and I felt she had an acute abdomen and therefore I was concerned about this segment of bowel that we reduced out of her strangulated hernia 2 days ago. I felt she needed urgent exploration for a gangrenous or perforated small bowel and discussed that in detail with the patient, her , and her daughter. We will proceed with exploratory laparotomy urgently and I feel we will probably have to resect a segment of small bowel. Of note, I did not see the patient yesterday because she had dropped off my inpatient computer list and I felt that she was discharged home by the hospitalists. I also did not receive a call that she was having trouble clinically during the day yesterday.
[2016-10-24] MEDS: PERIDEX MT SCH ×2 (13:32→20:20)
[2016-10-24] MEDS: NEURONTIN PO SCH ×2 (13:32→15:40)
--- NOTE | 2016-10-24 14:38 | PROGRESS NOTE ---
DATE: 10/24/2016 SUBJECTIVE: This patient is complaining of abdominal pain. She is disoriented. She is not following commands. Surgery Department evaluated this patient and they decided to take this patient again to the OR because of the abdominal pain. We will continue to monitor. OBJECTIVE: Vital Signs: Temperature 100.2 degrees, pulse 72, respiratory rate 18, blood pressure 133/60, O2 saturation 94% on 3 L of nasal cannula. HEENT: Head normocephalic. No trauma. PERRLA. Neck: Supple. No JVD. No masses. Central trachea. Chest: Clear to auscultation. Mild rales at the bases. Cardiovascular: RRR. No murmurs. Tachycardic. Abdomen: Soft, distended, tender to palpation around the periumbilical area and mild generalized tenderness as well. Extremities: No edema. No clubbing. No cyanosis. Neurological: The patient is alert. She is not oriented. LABORATORY: WBC 8.5, hemoglobin 9.7, hematocrit 32.5, platelet 165,000. Sodium 142, potassium 4.4, chloride 102, bicarbonate 24, BUN 39, creatinine 2.6, glucose 109, calcium 8.7. ASSESSMENT AND PLAN: 1. Strangulated ventral hernia repair postoperative day #2. Surgery evaluated this patient again and they have been taking this patient to the OR. She is still complaining of abdominal pain. 2. Altered mental status. We will continue to monitor this patient. She went for surgery today, also she has acute kidney injury. At this point, we are not sure about these mental changes. We will continue to monitor. 3. Acute on chronic kidney disease. This patient has been on IV fluids. Nephrology Department is following this patient. Compared with yesterday the urine output and the creatinine are better. 4. Type 2 diabetes. Blood sugar has been stable. Continue with the same management. 5. Hypothyroidism. We will monitor. 6. Hypertension. The blood pressure has been stable. 7. DVT prophylaxis. This patient is on Lovenox.
[2016-10-24] MEDS ORDERED: FENTANYL ONE (15:09)
[2016-10-24] MEDS ORDERED: NORCURON ONE (15:35)
[2016-10-24] MEDS ORDERED: AMIDATE ONE (15:35)
[2016-10-24] MEDS ORDERED: XYLOCAINE-MPF 2% ONE (15:36)
[2016-10-24] MEDS ORDERED: ZEMURON ONE (15:36)
[2016-10-24] MEDS ORDERED: QUELICIN (DOSE) ONE (15:36)
[2016-10-24] MEDS ORDERED: EXTENSION SET 32 IN 4522 ONE (15:36)
[2016-10-24] MEDS ORDERED: LR 1,000 ML ONE (15:36)
[2016-10-24] MEDS ORDERED: HESPAN 500 ML ONE (15:36)
[2016-10-24] MEDS ORDERED: ANESTHESIA PB SET 88 IN 5742 ONE (15:36)
[2016-10-24] MEDS ORDERED: ATIVAN IV PRN (15:41)
[2016-10-24] MEDS: DIPRIVAN 1% 100 ML IV SCH ×4 (15:46→23:08)
--- NOTE | 2016-10-24 15:58 | OPERATIVE NOTE ---
PROCEDURE DATE: 10/24/2016 PREOPERATIVE DIAGNOSIS: Acute abdomen postoperative day 2 from mesh repair of strangulated ventral hernia using mesh. POSTOPERATIVE DIAGNOSIS: Acute abdomen postoperative day 2 from mesh repair of strangulated ventral hernia using mesh. PRINCIPAL PROCEDURES: 1. Exploratory laparotomy with resection of a segment of small bowel. 2. Removal of intra-abdominal mesh. INDICATIONS: Ms. 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 This hernia will was just below the umbilicus. A CT scan had been performed as part of her evaluation in the emergency department and it documented a loop of small bowel in this hernia that was also possibly causing a small bowel obstruction. She had symptoms for 3 days prior to presenting to our emergency department. At the time of surgery we made a small midline incision below the umbilicus, identified the hernia, and it was strangulated. I opened the hernia sac. There was an area of compromised small bowel but as I released some of the fascia inferior to the hernia defect to take the pressure off his bowel, it seemed to be continue to be viable and we decided against resecting any bowel, placed it back intra- abdominally, and repaired the hernia using a 6.5 cm in diameter round piece of mesh. I hospitalized her not only because she had been in the ER all night but we wanted to be sure that this piece of bowel remained viable. On the morning of postop day 1, I felt she was doing well but over the last 24-36 hours she has had increasing abdominal pain and worsening renal function. Her abdomen has remained distended. I evaluated her this morning and felt that she could have an acute abdomen. Clinically, she was worsening and I was concerned about the segment of bowel that was caught in her strangulated hernia as the cause for her symptoms. I felt we should return her urgently back to surgery. FINDINGS: When prepping and draping the abdomen I felt that there was some vague erythema involving her lower abdomen which could have represented some cellulitis. When entering the abdomen, I removed her mesh. It was still in place, without evidence of any recurrent hernia. It was up against the anterior abdominal wall. There was no free purulence involving the mesh. I entered the abdomen and explored it thoroughly and there was no gangrenous bowel. There was no free small bowel fluid or colon fluid intra-abdominally. All of her bowel was edematous but there was no evidence of any intra-abdominal perforation with gross abdominal contamination. I identified the omentum that was in the strangulated hernia that I repaired because we had ligated some of it with silk suture. It was part of the greater omentum and the remaining omentum was viable intra-abdominally. I identified the small segment of proximal ileum that was in the strangulated hernia because you could see some bruising involving this small segment on the wall of the bowel but it was certainly viable and there was no evidence of perforation. I decided that I should resect that small segment of bowel just to be sure that was not the cause of her clinical deterioration. I also had already removed the mesh so if it was the source of any infection it would not be there and, of course, I opened her abdomen in a midline incision and any subcutaneous infection would have been drained. We did place an NG tube at surgery and I checked its position. No other intra-abdominal pathology was noted. DESCRIPTION OF PROCEDURE: The patient was brought to the operating room urgently. She was placed supine, received general anesthesia, and was intubated. Her abdomen was prepped and draped in a sterile field. I used an Ioban on the skin. I removed the skin clips from her previous lower midline incision, which probably was about 6 cm in length. I removed the 3-0 Vicryl stitches using scissors and I got down to the small hernia defect below the umbilicus in the lower midline of her abdomen. The mesh was still in place and it was still secured with Prolene stitches. I cut the Prolene stitches out and I removed the mesh from its intra-abdominal position. I then enlarged our incision to go around the umbilicus and down in the lower midline more so using the 10 blade scalpel. I cut the midline fascia using cautery and was careful not to injure any intra- abdominal contents. Her bowel was edematous and her colon was distended with air. I explored the abdomen with the findings above. I decided to resect a small segment of proximal ileum. It was probably only about 4-5 cm that we resected. I resected it by transecting it with a KATHI stapler and coming across the mesentery with a LigaSure. I did an end-to-end double-layer sewn anastomosis. The posterior layer was interrupted 3-0 silk stitches which were reinforced with a running interlocking 3-0 Vicryl stitch which was continued on the anterior wall of our anastomosis as a [place] stitch and then I reinforced the anterior wall with 3-0 silk Lembert stitches. The blood supply was good. The caliber of the anastomosis was good. There was no tension on it. We closed the mesenteric defect with interrupted 3-0 silk stitches. I took a lot of time to irrigate out the abdomen. I took down some adhesions between the colon and the underside of the right lobe of the liver. I examined the entire small bowel and even milked some fluid and gas from distal to proximal so that it could be removed by the NG tube. I did not see feel any pathology involving the colon. Everything appeared to be viable with no gangrenous bowel. There was no gross contamination intra-abdominally. I irrigated thoroughly with warm irrigation the entire abdomen and it was removed with suction. I placed the greater omentum over the small bowel and then I took time to close this midline wound that was under tension because of her edematous bowel. The first layer was running #1 Vicryl stitches to close the peritoneum. I used a fish so that I could close this midline accurately. The fish was removed before closing the peritoneum with this running #1 Vicryl stitch and then I closed the fascia with a running #1 Maxon stitch. I then thoroughly irrigated out the midline incision. I closed the skin loosely with a skin clip key account coordinator. In between the skin clips I placed sobia of Telfa so that the wound could drain and we could avoid a midline wound infection. Dry dressings were applied. She was hemodynamically satisfactory throughout the case. Plans are for her to go the ICU and remained intubated and I spoke with the family after the procedure.
[2016-10-24 15:59] LABS: MANUAL DIFF NEEDED? NO
[2016-10-24 16:03] LABS: BASO% 0.3 % (0.0-0.8); EOS# 0.02 X1000 (0.0-0.7); EOS% 0.2 % (0.0-10.0); HEMATOCRIT 31.1 % (37.0-47.0); HEMOGLOBIN 9.2 g/dL (12.0-16.0); IMM GRAN# 0.06 X1000 (0.0-0.04); IMM GRAN% 0.6 % (0.0-0.5); LYMPH# 1.35 X1000 (1.2-3.4); LYMPH% 13.5 % (20.5-51.1); MCH 27.9 PG (27-31); MCHC 29.6 g/dL (33-37); MCV 94.2 FL (81-99); MONO# 0.74 X1000 (0.11-0.59); MONO% 7.4 % (1.7-9.3); MPV 9.9 FL (7.4-10.4); PLT 176 X1000 (130-400)
[2016-10-24 16:26] LABS: ALLEN TEST NO; BE -3.9 mmoll (-3.0-3.0); BLOOD TYPE ARTERIAL; DRAW SITE R BRACHIAL; PCO2(98.6) 50 mmHg (35-45); PO2(98.6) 101 mmHg (60-100); SAMPLE BLOOD; SAO2 98.9 % (95.0-100.0); SRATE 14 BPM; THB 8.8 g/dL (11.5-17.4); TVOL 550 mL; pH(98.6) 7.27 (7.35-7.45)
[2016-10-24 16:28] LABS: MODALITY VENTILATOR
[2016-10-24 16:29] LABS: CALCIUM 8.7 mg/dL (8.8-10.2); MAGNESIUM 1.6 mg/dL (1.5-2.7); POTASSIUM 3.7 mmol/L (3.5-5.1)
--- NOTE | 2016-10-24 16:39 | Diag Imaging Result Document ---
PROCEDURE NAME: CHEST-PORTABLE - 10/24/2016 PORTABLE CHEST X-RAY: COMPARISON: 10/21/2016. FINDINGS: There is an endotracheal tube at T3. Nasogastric tube in the stomach. Lung volumes are lower. Stable cardiomegaly. There is worsening pulmonary vascular congestion. There is new diffuse bilateral central infiltrates suggesting pulmonary edema. IMPRESSIONS: 1. Good placement of support tubes. 2. Cardiomegaly and pulmonary edema.
[2016-10-24] MEDS: SODIUM BICARBONATE 8.4% IV PUSH SCH ×2 (17:37→23:50)
[2016-10-24] MEDS: D5 1/2 NS 1,000 ML IV SCH (18:35)
[2016-10-24] MEDS: DUONEB (A & A) INH SCH ×2 (19:04→22:31)
[2016-10-24] MEDS: LASIX IV SCH (20:19)
--- NOTE | 2016-10-24 20:44 | CONSULTATION ---
DATE OF CONSULTATION: 10/24/2016 REQUESTING PHYSICIAN: Angelique Fountain M.D. REASON FOR CONSULTATION: Respiratory failure after surgery. HISTORY OF PRESENT ILLNESS: Ms. Nuno is a 61-year-old, white female with diabetes mellitus, hypertension, morbid obesity who presented to the emergency room with a 2-day history of periumbilical pain. The patient was diagnosed with a nonreducible hernia. The patient went to the operating room with Dr. Fountain and had an open repair of a strangulated ventral hernia with closure utilizing Parietex mesh. Patient developed increased abdominal pain and decreased urine output. The patient went back to the operating room today and had a resection of an injured portion of bowel along with removal of the mesh. She is now on mechanical ventilation. PAST MEDICAL HISTORY: 1. Morbid obesity with a BMI of 49. 2. Hypertension. 3. Type 2 diabetes mellitus. 4. Hypothyroidism. 5. Status post . 6. Status post appendectomy. SOCIAL HISTORY: Patient smokes from 1969 to 2000. The chart indicates she smoked 3 packs per day. No alcohol use. FAMILY HISTORY: Noncontributory to current presentation. PHYSICAL EXAMINATION: General: Reveals a sedated female on mechanical ventilation. Vital Signs: BP 133/60, heart rate 81, respiration rate 14, oxygen saturation 96%. HEENT: Pupils are equal and reactive. Oropharynx is clear. Neck: Supple. Chest: Reveals faint crackles bilaterally. Cardiac Examination: Regular rate. Normal S1, normal S2. Abdomen: Obese and soft with surgical dressings in place. Extremities: Warm to the touch. LABORATORIES: Chest x-ray reveals increased vascular congestion bilaterally with cardiomegaly. Endotracheal tube and nasogastric tube are in good position. Electrolytes: Sodium 136, potassium 3.7, chloride 99, bicarbonate 21, anion gap 16, BUN 37, creatinine 1.7, arterial blood gas performed after surgery revealed pH 7.27, pCO2 of 50, PO2 of 101 with a normal lactate. White blood count 10.03, hemoglobin 9.2, platelet count 176,000. IMPRESSION: A 61-year-old with significant tobacco history, morbid obesity, status post 2nd surgery for an incarcerated inguinal hernia. The patient has hypoxemic and hypercapnic respiratory failure along with acute renal failure and pulmonary edema. With her hypertension, I suspect she has a component of noncardiogenic pulmonary edema. RECOMMENDATIONS: 1. Continue full ventilatory support with increased edema changes, her PEEP will be increased. 2. Increase ventilation to adjust for acidosis. 3. Sodium bicarbonate to adjust for acute renal failure. 4. Agree with current antibiotics. 5. Gastric acid suppression. 6. Agree with DVT prophylaxis. 7. Routine bronchodilators. 8. Additional recommendations pending hospital course. I reviewed the case with the family.
[2016-10-25] MEDS: DIPRIVAN 1% 100 ML IV SCH ×11 (01:59→22:01)
[2016-10-25] MEDS: D5 1/2 NS 1,000 ML IV SCH ×2 (01:59→10:28)
[2016-10-25] MEDS: DUONEB (A & A) INH SCH ×6 (02:40→22:57)
[2016-10-25] MEDS: SODIUM CHLORIDE 0.9% INJ PRN (03:11)
[2016-10-25] MEDS: LASIX IV SCH ×3 (03:11→21:23)
[2016-10-25] MEDS: PROTONIX IV SCH (03:11)
[2016-10-25 04:02] LABS: MANUAL DIFF NEEDED? NO
[2016-10-25 04:06] LABS: BASO% 0.4 % (0.0-0.8); EOS% 1.3 % (0.0-10.0); HEMATOCRIT 25.2 % (37.0-47.0); HEMOGLOBIN 7.9 g/dL (12.0-16.0); IMM GRAN# 0.03 X1000 (0.0-0.04); IMM GRAN% 0.4 % (0.0-0.5); LYMPH# 1.21 X1000 (1.2-3.4); LYMPH% 15.8 % (20.5-51.1); MCH 28.8 PG (27-31); MCHC 31.3 g/dL (33-37); MONO# 0.77 X1000 (0.11-0.59); MONO% 10.1 % (1.7-9.3); MPV 9.9 FL (7.4-10.4); PLT 176 X1000 (130-400); RBC 2.74 XMIL (4.2-5.4)
[2016-10-25 04:21] LABS: ALLEN TEST YES; BE 9.8 mmoll (-3.0-3.0); BLOOD TYPE ARTERIAL; DRAW SITE R RADIAL; METHB 1.5 % (0.0-1.5); MODALITY VENTILATOR; O2(CT) 20.8 mL/dL (15.0-23.0); PCO2(98.6) 40 mmHg (35-45); PO2(98.6) 84 mmHg (60-100); SAMPLE BLOOD; SAO2 98.6 % (95.0-100.0); SRATE 18 BPM; THB 15.5 g/dL (11.5-17.4); TVOL 550 mL; pH(98.6) 7.53 (7.35-7.45)
[2016-10-25 04:27] LABS: ALBUMIN 2.5 g/dL (3.5-5.0); CALCIUM 8.4 mg/dL (8.8-10.2); TOTAL BILIRUBIN 0.53 mg/dL (0.20-1.00); TOTAL PROTEIN 5.1 g/dL (6.3-8.3)
[2016-10-25 04:32] LABS: POTASSIUM 2.5 mmol/L (3.5-5.1)
[2016-10-25] MEDS: POTASSIUM CHLORIDE 20 MEQ/SWI 100 ML IV SCH ×2 (04:49→06:20)
[2016-10-25] MEDS: LOPRESSOR IV SCH ×4 (05:45→23:31)
[2016-10-25] MEDS: LOVENOX SUBQ SCH (05:46)
[2016-10-25] MEDS: HUMALOG SUBQ SCH ×6 (06:19→23:38)
[2016-10-25] MEDS: ZOSYN 2.25 GM/NS 50 ML IV SCH ×3 (08:55→23:31)
[2016-10-25] MEDS: PERIDEX MT SCH ×2 (08:55→21:23)
--- NOTE | 2016-10-25 09:12 | Diag Imaging Result Document ---
PROCEDURE NAME: CHEST-PORTABLE - 10/25/2016 PORTABLE CHEST X-RAY, 10/25/2016: COMPARISON: 10/24/2016. FINDINGS: Stable endotracheal tube and nasogastric tube. Stable cardiomegaly. Stable pulmonary vascular congestion and mild interstitial pulmonary edema. No new infiltrates. IMPRESSION: No change from prior.
[2016-10-25] MEDS ORDERED: POTASSIUM PHOSPHATE IV ONE (10:14)
[2016-10-25] MEDS ORDERED: NS IV ONE (10:14)
--- NOTE | 2016-10-25 10:30 | PROGRESS NOTE ---
DATE: 10/25/2016 SUBJECTIVE: This patient has been 1 day in the intensive care unit. She is intubated and sedated, no events overnight. Vital signs are stable. She is status post strangulated ventral hernia repair postoperative day #3, but yesterday she went again to the OR for an exploratory laparotomy with resection of a segment of the small bowel and removal of intra-abdominal mesh. OBJECTIVE: Vital Signs: Temperature 99.1 degrees, pulse 69, respiratory rate 21. Blood pressure 136/71. Oxygen saturation 96 on mechanical ventilation 55% oxygen flow. HEENT: Head normocephalic. No trauma. PERRLA. Neck: Supple. No JVD. No masses. Central trachea. Chest: Clear to auscultation. No wheezing. No rales. Cardiovascular: RRR. No murmurs. No gallops or rubs. Abdomen: Soft, distended. No signs of peritoneal irritation. There is a wound in the middle of the abdomen that looks clean and dry. No sign of bleed. Positive bowel sounds. Extremities: No edema. No clubbing. No cyanosis. Neurological examination: The patient is sedated and intubated. LABORATORY: WBC 7.6, hemoglobin 7.9, hematocrit 25.2, platelets 176. Sodium 143, potassium 2.5, chloride 100, bicarbonate 30, BUN 28, creatinine 1.4, glucose 218, calcium 8.4, albumin is 2.5. ASSESSMENT AND PLAN: 1. Strangulated ventral hernia repaired postoperative day #3 and exploratory laparotomy with dissection of a segment of small bowel and removal of intra-abdominal mesh postoperative day #1. At this point, this patient is intubated and sedated, vital signs looks stable. Kidney function is getting better as well. No signs of bleed or peritoneal irritation at this moment. The abdomen is soft. We will continue with the same management for now. 2. Altered mental status. Previous to the surgery this patient was confused. At this moment she is on mechanical ventilation and sedated. We will monitor. 3. Acute on chronic kidney disease. I will continue with the intravenous fluids. The BUN and creatinine is getting better. We will continue to monitor. Nephrology Department is on board. 4. Type 2 diabetes. The blood sugar has been stable today, but it is a little bit elevated. Will continue to monitor this patient. I will not do any changes for now. 5. Hypokalemia. I will replace the potassium. 6. Hypophosphatemia. I will replace the phosphorus. 7. Hypertension. The blood pressure is stable at this moment. We will continue with the same treatment. 8. Deep vein thrombosis prophylaxis. This patient is on Lovenox subcutaneous daily. I will continue with this. CRITICAL CARE TIME: 35 minutes.
[2016-10-25] MEDS: CLINIMIX E 4.25%-5% SOLUTION 1,000 ML IV SCH ×2 (11:13→23:32)
[2016-10-25] MEDS: DILAUDID IV PRN (14:20)
--- NOTE | 2016-10-25 14:52 | PROGRESS NOTE ---
DATE: 10/25/2016 TIME SEEN: 0745 SUBJECTIVE: Ms. Nuno is resting quietly in bed. She remains on ventilatory support with sedation. OBJECTIVE: Her most recent vital signs are temperature of 99.1 degrees, blood pressure 136/71, heart rate 69, respirations 21. She has had 4814 in. She has had 4900 out with 4700 per Reyes. LABORATORIES: Sodium 143, potassium 2.5, chloride 100, CO2 of 30, BUN 28, creatinine 1.4, glucose 218, anion gap 13, calcium 8.4, phosphorus 1.2, albumin 2.5. White count 7.66, hemoglobin 7.9, hematocrit 25.2, platelet count 176,000. ABGs were pH 7.53, CO2 of 40 PO2 of 84 , bicarbonate 32.5 on 55% FiO2. PHYSICAL EXAMINATION: General: This is a 61-year-old white female. She is currently resting in bed. She is ventilator dependent. Remains sedated, in no acute distress. Skin : Warm and dry. HEENT: Normocephalic, atraumatic. Conjunctivae pale. Her pupils are equal and reactive. Mucous membranes are dry. Neck: Supple. Trachea midline. No JVD. Cardiovascular: She has regular rate and rhythm. She is without murmur or gallop this a.m. Lungs: Clear to auscultation anteriorly. Equal excursion. Abdomen: Soft, slightly distended. Abdominal dressing remains dry and intact. Positive bowel sounds noted. Genitourinary: Reyes catheter remains in place. Adequate urine out. Extremities: No edema. No clubbing or cyanosis. Integumentary: No rashes or lesions noted, with abdominal dressing over wound. Neurological: Patient remains sedated, as above. ASSESSMENT AND PLAN: 1. Acute kidney injury. Patient's BUN and creatinine have continued to improve over the last several days. They are now down to 1.4 from 2.6. She remains well hydrated. Adequate urine out at this time. 2. Electrolytes. Patient has hypokalemia. She currently has a potassium supplement infusing. 3. Acid-base balance. This is actually stable. 4. Anemia. This remains low. 5. Strangulated ventral hernia repair. This is postoperative day #1 from exploratory laparotomy with intra-abdominal mesh removal yesterday. This is followed by Surgery. I would like to thank you for allowing us to follow with this patient. Seen, data reviewed, discussed with Katina Velez on 10/25/16. I agree with the above assessment and plan of care. rg Dictated by VANIA Wolff for Darion Santo MD [facility]
[2016-10-25 16:08] LABS: MANUAL DIFF NEEDED? NO
[2016-10-25 16:21] LABS: BASO% 0.3 % (0.0-0.8); EOS# 0.17 X1000 (0.0-0.7); EOS% 2.5 % (0.0-10.0); HEMATOCRIT 22.8 % (37.0-47.0); HEMOGLOBIN 7.1 g/dL (12.0-16.0); IMM GRAN# 0.02 X1000 (0.0-0.04); IMM GRAN% 0.3 % (0.0-0.5); LYMPH# 1.55 X1000 (1.2-3.4); LYMPH% 22.7 % (20.5-51.1); MCH 28.5 PG (27-31); MCHC 31.1 g/dL (33-37); MCV 91.6 FL (81-99); MONO# 0.63 X1000 (0.11-0.59); MONO% 9.2 % (1.7-9.3); PLT 182 X1000 (130-400); RBC 2.49 XMIL (4.2-5.4)
[2016-10-25 16:32] LABS: CALCIUM 8.1 mg/dL (8.8-10.2); POTASSIUM 2.7 mmol/L (3.5-5.1)
[2016-10-25] MEDS: POTASSIUM CHLORIDE 40 MEQ in 1/2 NS 250 ML IV SCH ×2 (18:16→23:31)
[2016-10-26] MEDS: DIPRIVAN 1% 100 ML IV SCH ×10 (00:03→22:41)
[2016-10-26] MEDS: PROTONIX IV SCH (03:18)
[2016-10-26] MEDS: HUMALOG SUBQ SCH ×6 (03:18→23:59)
[2016-10-26] MEDS: LASIX IV SCH ×3 (03:18→16:28)
[2016-10-26] MEDS: SODIUM CHLORIDE 0.9% INJ PRN (03:18)
[2016-10-26] MEDS: DUONEB (A & A) INH SCH ×6 (03:32→22:52)
[2016-10-26 05:01] LABS: MANUAL DIFF NEEDED? NO
[2016-10-26 05:06] LABS: ALLEN TEST YES; BE 12.1 mmoll (-3.0-3.0); BLOOD TYPE ARTERIAL; DRAW SITE R RADIAL; METHB 1.5 % (0.0-1.5); O2(CT) 9.3 mL/dL (15.0-23.0); PCO2(98.6) 43 mmHg (35-45); PO2(98.6) 76 mmHg (60-100); SAMPLE BLOOD; SRATE 15 BPM; THB 6.8 g/dL (11.5-17.4); TVOL 550 mL; pH(98.6) 7.53 (7.35-7.45)
[2016-10-26 05:07] LABS: MODALITY VENTILATOR
[2016-10-26] MEDS: DILAUDID IV PRN ×2 (05:08→21:22)
[2016-10-26] MEDS: LOPRESSOR IV SCH ×4 (05:09→21:10)
[2016-10-26] MEDS: LOVENOX SUBQ SCH (05:09)
[2016-10-26 05:14] LABS: BASO% 0.5 % (0.0-0.8); EOS# 0.49 X1000 (0.0-0.7); EOS% 6.1 % (0.0-10.0); HEMATOCRIT 23.7 % (37.0-47.0); HEMOGLOBIN 7.6 g/dL (12.0-16.0); IMM GRAN# 0.03 X1000 (0.0-0.04); IMM GRAN% 0.4 % (0.0-0.5); LYMPH# 1.75 X1000 (1.2-3.4); LYMPH% 21.6 % (20.5-51.1); MCH 29.5 PG (27-31); MCHC 32.1 g/dL (33-37); MCV 91.9 FL (81-99); MONO# 0.82 X1000 (0.11-0.59); MONO% 10.1 % (1.7-9.3); MPV 10.5 FL (7.4-10.4); NEUT% 61.3 % (42.2-75.2); PLT 211 X1000 (130-400); RBC 2.58 XMIL (4.2-5.4)
[2016-10-26 05:32] LABS: ALBUMIN 2.6 g/dL (3.5-5.0); CALCIUM 7.8 mg/dL (8.8-10.2); POTASSIUM 3.3 mmol/L (3.5-5.1); TOTAL BILIRUBIN 0.38 mg/dL (0.20-1.00); TOTAL PROTEIN 5.6 g/dL (6.3-8.3)
--- NOTE | 2016-10-26 08:19 | PROGRESS NOTE ---
DATE: 10/26/2016 Ms. Nuno's urine output is excellent and her creatinine has returned to baseline. We will sign off. If we can be of further assistance, please do not hesitate to call.
--- NOTE | 2016-10-26 08:33 | Diag Imaging Result Document ---
PROCEDURE NAME: CHEST-PORTABLE - 10/26/2016 SINGLE FRONTAL RADIOGRAPH OF THE CHEST: COMPARISON: 10/25/2016. FINDINGS: ET tube is stable. NG tube projects below the diaphragm and out of the field of view. Inspiration is suboptimal. Pulmonary venous congestion and mild interstitial edema is stable-to- marginally improved. No new consolidations are identified. Cardiac silhouette is stable. IMPRESSION: [id number] improvement of mild interstitial edema.
[2016-10-26] MEDS: PERIDEX MT SCH ×2 (08:49→20:38)
[2016-10-26] MEDS: ZOSYN 2.25 GM/NS 50 ML IV SCH ×3 (08:49→23:59)
[2016-10-26] MEDS ORDERED: MAGNESIUM SULFATE 2 GM/S.W.I. 50 ML IV ONE (09:12)
[2016-10-26] MEDS ORDERED: POTASSIUM CHLORIDE IV SCH (10:30)
[2016-10-26] MEDS ORDERED: D5W IV SCH (10:30)
[2016-10-26] MEDS ORDERED: POTASSIUM PHOSPHATE IV SCH (10:30)
[2016-10-26 10:54] LABS: INR 1.02; PROTIME 10.4 Seconds (9.2-11.7)
[2016-10-26] MEDS: CLINIMIX E 4.25%-5% SOLUTION 1,000 ML IV SCH ×3 (11:15→22:42)
--- NOTE | 2016-10-26 12:36 | PROGRESS NOTE ---
DATE: 10/26/2016 Ms. Юиля Nuno originally came in, in the relish maker Saturday with a strangulated ventral hernia which I repaired using mesh. A knuckle of small bowel was caught in this hernia and was compromised but I felt viable. However on postop day 2, we felt clinically she was getting worse and she had abdominal pain and I was concerned about this area of bowel so I urgently brought her back to the operating room for exploratory laparotomy. It turned out that the bowel that was stuck in the hernia was visualized because it was bruised but it was viable and there was no evidence of gangrenous bowel or gross intra-abdominal contamination. I still removed this section of bruised ileum and explored the rest of the abdomen. She was then hospitalized in the ICU on the ventilator and she remains on the ventilator and is sedated with IV propofol. I saw her yesterday and spoke with her yesterday but failed to dictate a progress node. This morning I reviewed her care with the nurse and her has already gone home. He did speak with Dr. Samuel Pedro who is taking care of her. It must be noted that she is anemic. Her hematocrit is 24%. Her white blood cell count is normal. Her heart rate is 73, blood pressure 144/65. O2 saturation on the ventilator 97%. Her blood gas is 7.53, CO2 is 43, PaO2 is 76, her base excess is 12. Her lactate is 1.6. Her coagulation studies are normal. Her electrolytes are within normal limits. Her BUN and creatinine are 26 and 1.0. Liver function tests are normal. She is on IV Zosyn. She is afebrile. Her abdomen is soft. She still has an NG tube in place and her midline dressing is dry. I closed the midline dressing loosely and it must be noted that her mesh has been removed. PLAN: Continue supportive care per Dr. Samuel Pedro. She is on IV nutrition. Will maintain her NG tube until she is off the ventilator. Will continue wound care. Clinically I feel she has improved since her 2nd surgery. Dr. Huber Tillman is on for our group this weekend.
[2016-10-26] MEDS ORDERED: NS 250 ML ONE (13:53)
[2016-10-26] MEDS ORDERED: POTASSIUM CHLORIDE 20 MEQ/SWI 100 ML IV ONE (14:39)
--- NOTE | 2016-10-26 15:12 | PROGRESS NOTE ---
DATE: 10/26/2016 SUBJECTIVE: This patient is still sedated and intubated, we are trying to get a PICC line on hair, vital signs are stable. I talked to the in the morning and I answered all his questions. We will continue to monitor this patient in the ICU. Pulmonary Department is on board. OBJECTIVE: Vital Signs: Temperature 97.4 degrees, pulse 58, respiratory rate 20, blood pressure 142/72, oxygen saturation 97% on mechanical ventilation 50% oxygen flow. HEENT: Head normocephalic. No trauma. PERRLA. Neck: Supple. No JVD. No masses. Central trachea. Chest: Clear to auscultation. No wheezing. No rales. Cardiovascular: RRR. No murmurs. No gallops. No rubs. Abdomen: Soft. Mildly distended. No signs of peritoneal irritation. There is a wound in the middle of the abdomen that looks clean and dry. No signs of bleed. Reduced bowel sounds. Extremities: No edema. No clubbing. No cyanosis. Neurological: The patient is sedated and intubated. Negative Babinski. LABORATORY: WBC 8, hemoglobin 7.6, hematocrit 23.7, platelets 211. Sodium 142, potassium 3.3, chloride 98, bicarbonate 31, BUN 26, creatinine 1, glucose 162, calcium 7.8, phosphorus 2.3, magnesium 1.1, albumin 2.6. ASSESSMENT AND PLAN: 1. Strangulated ventral hernia repair postoperative day #4 and exploratory laparotomy with dissection of a segment of small bowel and removal of intra abdominal mesh, postoperative day #2. At this point, the patient is still sedated and intubated, vital signs are stable. Kidney function is at the baseline. No signs of bleed or peritoneal irritation at this moment. The abdomen is soft. We will continue with the same management. Pulmonary Department is on board. 2. Altered mental status. Previous to the surgery the patient was confused; at this moment she is on mechanical ventilation and sedated. We will monitor this patient after extubation. 3. Acute on chronic kidney disease, resolved. 4. Type 2 diabetes. Continue with the same management. 5. Hypokalemia. I will replace the potassium today. 6. Hypomagnesemia. The magnesium has been replaced today. 7. Hypertension. The blood pressure is stable at this moment. We will continue with the same management. 8. Deep vein thrombosis prophylaxis. Patient is on Lovenox. CRITICAL CARE TIME: 35 minutes.
--- NOTE | 2016-10-26 17:23 | ECHO REPORT ---
ORDER DATE: 10/26/2016 INTERPRETING PHYSICIAN: Dr. Brumfield REQUESTING PHYSICIAN: CLINICAL INDICATIONS: This is a 61-year-old female with exploratory laparotomy, respiratory failure, chronic kidney disease. M-MODE MEASUREMENTS: Right ventricle: 3.7 cm. Left ventricle end diastole: 6.4 cm. Left ventricle end systole: 3.6 cm. Posterior wall: 1.2 cm. Interventricular septum: 1.2 cm. Left atrium: 4.2 cm. Aortic root: 3.4 cm. SUMMARY OF 2-DIMENSIONAL IMAGIN. This study is technically difficult. The global left ventricular systolic function appears to be normal. Ejection fraction is estimated at 60%. The chamber is not dilated. I cannot rule out hypokinesis of the inferior wall in this particular case due to difficult acoustic windows. 2. Tricuspid valve shows mild degree of regurgitation. 3. Inferior vena CVA was not visualized. 4. The pulmonary pressure is somewhere in the range of 39 to 44 mmHg. 5. The atrial did not appear to be dilated. 6. Mitral valve looks normal. Color flow mapping indicates mild regurgitation. 7. Pulse wave Doppler of mitral inflow showed normal E/A ratio. 8. Tissue Doppler of septal and lateral mitral annulus averages 7 cm. 9. The pulmonary venous flow is normal. 10.There is no diastolic dysfunction. 11.The pulmonic valve showed trace regurgitation. 12.The aortic valve shows a maximum gradient of 27 mmHg, mean gradient of 15 mmHg across the outflow tract of the left ventricle. 13.The aortic valve opens normally. This gradient is probably the result of hyperdynamic left ventricular contractility. There is no indication of aortic stenosis. There is some calcium noted at the base of the left coronary cusp. 14.The left main coronary artery was visualized proximally. It appeared to be grossly normal. 15.There is no pericardial effusion, mass or thrombus. CONCLUSIONS: 1. Essentially normal left ventricular systolic function with questionable hypokinesis of the inferior wall in its basal segment. 2. No diastolic dysfunction. 3. Some calcification at the base of the aortic valve without aortic stenosis. 4. There is a nonsignificant gradient across the outflow tract of the left ventricle. That probably has to do with a hyperdynamic left ventricle. 5. There is no diastolic dysfunction. 6. Pulmonary pressure is somewhere in the range of 39 to 44 mmHg. Clinical correlation is recommended.
[2016-10-27] MEDS: LASIX IV SCH ×3 (00:37→19:41)
[2016-10-27] MEDS: DIPRIVAN 1% 100 ML IV SCH ×4 (01:15→14:31)
[2016-10-27] MEDS: DILAUDID IV PRN ×6 (02:07→23:00)
[2016-10-27] MEDS: CLINIMIX E 4.25%-5% SOLUTION 1,000 ML IV SCH ×2 (03:15→15:57)
[2016-10-27] MEDS: HUMALOG SUBQ SCH ×6 (03:16→22:59)
[2016-10-27] MEDS: PROTONIX IV SCH (03:17)
[2016-10-27] MEDS: SODIUM CHLORIDE 0.9% INJ PRN (03:17)
[2016-10-27] MEDS: DUONEB (A & A) INH SCH ×6 (03:38→23:19)
[2016-10-27 05:30] LABS: ALLEN TEST YES; BE 13.3 mmoll (-3.0-3.0); BLOOD TYPE ARTERIAL; DRAW SITE R RADIAL; PO2(98.6) 71 mmHg (60-100); SAMPLE BLOOD; SRATE 12 BPM; TVOL 550 mL; pH(98.6) 7.47 (7.35-7.45)
[2016-10-27 05:31] LABS: MODALITY VENTILATOR; PCO2(98.6) 54 mmHg (35-45)
[2016-10-27 05:40] LABS: MANUAL DIFF NEEDED? NO
[2016-10-27 05:59] LABS: BASO% 0.6 % (0.0-0.8); EOS# 0.66 X1000 (0.0-0.7); EOS% 10.4 % (0.0-10.0); HEMATOCRIT 22.2 % (37.0-47.0); HEMOGLOBIN 6.7 g/dL (12.0-16.0); IMM GRAN# 0.02 X1000 (0.0-0.04); IMM GRAN% 0.3 % (0.0-0.5); LYMPH# 1.92 X1000 (1.2-3.4); LYMPH% 30.4 % (20.5-51.1); MCHC 30.2 g/dL (33-37); MCV 92.9 FL (81-99); MONO# 0.57 X1000 (0.11-0.59); MPV 10.4 FL (7.4-10.4); NEUT% 49.3 % (42.2-75.2); PLT 215 X1000 (130-400); RBC 2.39 XMIL (4.2-5.4)
[2016-10-27 06:14] LABS: ALBUMIN 2.6 g/dL (3.5-5.0); CALCIUM 8.1 mg/dL (8.8-10.2); POTASSIUM 3.3 mmol/L (3.5-5.1); TOTAL BILIRUBIN 0.3 mg/dL (0.20-1.00); TOTAL PROTEIN 5.2 g/dL (6.3-8.3)
[2016-10-27] MEDS: LOPRESSOR IV SCH ×4 (06:34→18:19)
[2016-10-27] MEDS: LOVENOX SUBQ SCH (06:34)
--- NOTE | 2016-10-27 08:08 | Diag Imaging Result Document ---
PROCEDURE NAME: CHEST-PORTABLE - 10/27/2016 PORTABLE CHEST: COMPARISON: 10/26/2016. FINDINGS: Endotracheal tube, nasogastric tube, and PICC line remain. There is cardiomegaly with mild interval increase in heart size. There is apparent mild central vascular congestion. There is decreased atelectasis at the right base. There is no substantial pleural effusion or pneumothorax identified. IMPRESSION: Cardiomegaly with mild interval increase in heart size. Mild central vascular congestion. Decrease in right basilar atelectasis.
[2016-10-27] MEDS ORDERED: NS 500 ML ONE (08:28)
[2016-10-27] MEDS ORDERED: POTASSIUM CHLORIDE 40 MEQ/SWI 100 ML IV ONE (08:37)
[2016-10-27] MEDS: ZOSYN 2.25 GM/NS 50 ML IV SCH ×3 (08:48→23:01)
[2016-10-27] MEDS: PERIDEX MT SCH ×2 (08:48→21:47)
--- NOTE | 2016-10-27 09:58 | PROGRESS NOTE ---
DATE: 10/27/2016 SUBJECTIVE: This patient is still sedated and intubated. Vital signs are stable today. We are going to transfuse this patient because the hemoglobin is around 6.7. Also, we will replace the potassium. The is at the bedside, and I answered all his questions. OBJECTIVE: Vital signs: Temperature 97.9, pulse 69, respiratory rate 17, blood pressure 125/58, oxygen saturation 98% on mechanical ventilation, 50% oxygen flow. HEENT: Head normocephalic, no trauma, KAREN. Neck: Supple, no JVD, no masses. Central trachea. Chest: Clear to auscultation, no wheezing, no rales. Cardiovascular: RRR, no murmurs, no gallops, no rubs. Abdomen: Soft, nondistended, no signs of peritoneal irritation. Midline wound that looks clean and dry. No signs of bleed. Decreased bowel sounds. Extremities: No edema, no clubbing, no cyanosis. Neurological: The patient is sedated and intubated. Negative Babinski. LABORATORY: WBC 6.3, hemoglobin 6.7, hematocrit 22.2, platelets 215. Sodium 143, potassium 3.3, chloride 98, bicarbonate 32, BUN 26, creatinine 1, glucose 113, calcium 8.1. Magnesium 1.6. Albumin 2.6. ASSESSMENT AND PLAN: 1. Strangulated ventral hernia repaired, postoperative day #5. 2. Exploratory laparotomy with dissection of a segment of small bowel and removal of intraabdominal mesh, postoperative day #3. At this point, this patient is still sedated and intubated. Vital signs are stable. Kidney function is at the baseline. No signs of bleed or peritoneal irritation at this moment. The abdomen is soft. Will continue with the same treatment for now. Pulmonary department is following this patient. 3. Anemia, likely secondary to blood loss. We will transfuse this patient with 1 unit of PRBC. 4. Hypokalemia. I will replace the potassium today. 5. Altered mental status. Previous to the surgery, this patient was confused. At this moment, she is on mechanical ventilation and sedated. Will continue to monitor this patient and will reevaluate after extubation. 6. Type 2 diabetes. Continue with the same management. 7. Hypomagnesemia. This patient received yesterday magnesium. Today, the magnesium is under control. Will continue to monitor. 8. Hypertension. The blood pressure is stable at this moment. Will continue with the same management. 9. DVT prophylaxis. This patient is on Lovenox.
--- NOTE | 2016-10-27 11:20 | PROGRESS NOTE ---
DATE: 10/27/2016 SUBJECTIVE: She is sedated on the ventilator but responsive. Got a unit of blood for a slowly downward trending hemoglobin and hematocrit. OBJECTIVE: Vital signs: She is stable hemodynamically, heart rate is 69, blood pressure is normal for her, oxygen saturation 100% on minimal ventilator settings. General : She is arousable but is sedated. She is on the ventilator with relatively low FiO2 and PEEP. Abdomen: Soft, nontender, nondistended. Incision is intact, closed loosely with some packs intervening. We removed these. There is no active bleeding, no cellulitis. Integumentary: Otherwise warm and dry. LABORATORY DATA: I reviewed her labs. She is slightly anemic. She is getting a unit of blood. ASSESSMENT AND PLAN: A 61-year-old female status post umbilical hernia repair with concerns of possible bowel ischemia. She was taken back, explored, and bowel resection performed, although the bowel was not perforated by Dr. Fountain. She appears to have improvement in her acute renal dysfunction. She is still on ventilator with ongoing pulmonary issues, possible pneumonia. She has been transfused appropriately, but overall clinically is gradually improving. Will continue to monitor. N.P.O. for now. She is on some peripheral parenteral nutrition, but will begin enterall feeds with return of bowel function. [facility]
[2016-10-27 15:09] LABS: ALLEN TEST YES; BE 13.3 mmoll (-3.0-3.0); BLOOD TYPE ARTERIAL; DRAW SITE R RADIAL; METHB 0.5 % (0.0-1.5); O2(CT) 10.4 mL/dL (15.0-23.0); PO2(98.6) 72 mmHg (60-100); SAMPLE BLOOD; SAO2 100.4 % (95.0-100.0); THB 7.7 g/dL (11.5-17.4); pH(98.6) 7.43 (7.35-7.45)
[2016-10-27 15:10] LABS: MODALITY VENTILATOR
[2016-10-27 15:11] LABS: PCO2(98.6) 59 mmHg (35-45)
[2016-10-27 16:53] LABS: HEMATOCRIT 25.1 % (37.0-47.0); HEMOGLOBIN 7.7 g/dL (12.0-16.0)
[2016-10-28] MEDS: LOPRESSOR IV SCH ×5 (00:13→23:06)
[2016-10-28] MEDS: LASIX IV SCH ×3 (01:19→20:21)
[2016-10-28] MEDS: HUMALOG SUBQ SCH ×6 (03:30→23:06)
[2016-10-28] MEDS: SODIUM CHLORIDE 0.9% INJ PRN (03:39)
[2016-10-28] MEDS: PROTONIX IV SCH (03:39)
[2016-10-28] MEDS: DUONEB (A & A) INH SCH ×6 (04:01→22:42)
[2016-10-28] MEDS ORDERED: VASELINE ONE (04:09)
[2016-10-28] MEDS: DILAUDID IV PRN ×5 (04:15→23:05)
[2016-10-28 04:27] LABS: MANUAL DIFF NEEDED? NO
[2016-10-28 04:41] LABS: ALLEN TEST YES; BE 13.5 mmoll (-3.0-3.0); BLOOD TYPE ARTERIAL; DRAW SITE R RADIAL; PO2(98.6) 58 mmHg (60-100); SAMPLE BLOOD
[2016-10-28 04:44] LABS: MODALITY CANNULA; PCO2(98.6) 67 mmHg (35-45)
[2016-10-28 04:48] LABS: CALCIUM 8.4 mg/dL (8.8-10.2); POTASSIUM 3.5 mmol/L (3.5-5.1)
[2016-10-28 04:58] LABS: BASO% 0.7 % (0.0-0.8); EOS# 0.82 X1000 (0.0-0.7); EOS% 10.9 % (0.0-10.0); HEMATOCRIT 28.1 % (37.0-47.0); HEMOGLOBIN 8.6 g/dL (12.0-16.0); IMM GRAN# 0.05 X1000 (0.0-0.04); IMM GRAN% 0.7 % (0.0-0.5); LYMPH# 1.69 X1000 (1.2-3.4); LYMPH% 22.6 % (20.5-51.1); MCHC 30.6 g/dL (33-37); MCV 94.6 FL (81-99); MONO# 0.77 X1000 (0.11-0.59); MONO% 10.3 % (1.7-9.3); NEUT% 54.8 % (42.2-75.2); PLT 247 X1000 (130-400); RBC 2.97 XMIL (4.2-5.4)
[2016-10-28] MEDS: LOVENOX SUBQ SCH (05:24)
[2016-10-28] MEDS: CLINIMIX E 4.25%-5% SOLUTION 1,000 ML IV SCH ×2 (06:14→18:07)
--- NOTE | 2016-10-28 07:39 | Diag Imaging Result Document ---
PROCEDURE NAME: CHEST-PORTABLE - 10/28/2016 PORTABLE CHEST: COMPARISON: Compared to 10/27/2016. FINDINGS: There is a right-sided PICC line as well as a nasogastric tube. The endotracheal tube has been removed. The lungs are well expanded. Cardiomegaly remains. Infiltrates are less pronounced. No pleural effusions identified. IMPRESSION: Overall mild interval improvement.
[2016-10-28] MEDS: ZOSYN 2.25 GM/NS 50 ML IV SCH ×3 (07:40→23:07)
[2016-10-28] MEDS: PERIDEX MT SCH ×2 (09:02→20:21)
--- NOTE | 2016-10-28 10:10 | PROGRESS NOTE ---
DATE: 10/28/2016 SUBJECTIVE: This patient was extubated yesterday in the afternoon. She is not complaining today of shortness of breath. She looks more alert. She is more oriented. She is not oriented in time but she is oriented in person and place. She is able to recognize her . She is complaining of mild to moderate abdominal pain and that has been happening on and off. During the physical exam I noticed that the left pupils is a little bit larger than the right one. I will monitor. If this continues I will order a CT scan of the head. OBJECTIVE: HEENT: Head normocephalic. No trauma. PERRLA. Left pupil is slightly larger compared with the right 1. Neck: Supple. No JVD. No masses. Central trachea. Chest: Bilateral scattered wheezing, mild crackles. Cardiovascular: RRR. No murmurs. No gallops. No rubs. Abdomen: Soft, nondistended. No signs of peritoneal irritation. Midline wound looks clean and dry. No signs of bleed. Decreased bowel sounds. Extremities: No edema. No clubbing. No cyanosis. Neurological examination: Patient is alert. She is oriented in person and place. She is able to recognize people. She moves all 4 extremities but she has generalized weakness. Strength is around the same in all 4 extremities. LABORATORY: WBC 7.4, hemoglobin 8.6, hematocrit 28.1, platelet 247,000. Sodium 141, potassium 3.5, chloride 94, bicarbonate 35, BUN 27, creatinine 1, glucose 166, calcium 8.4, albumin 3. ASSESSMENT AND PLAN: 1. Strangulated ventral hernia repair, postoperative day #6, and exploratory laparotomy with dissection of a segment of small bowel and removal of intra-abdominal mesh, postoperative day #4. At this point, this patient has been extubated yesterday. She is more alert. She is more oriented compared to the past. Vital signs are stable. Kidney function is at baseline signs. No signs of peritoneal irritation at this moment. She does have anisocoria. The left pupil is a little bit large compared with the right 1, but we will monitor this. Pulmonary department is following this patient. We will continue with respiratory treatment. This patient is wheezing at little bit today. We will continue to monitor. 2. Anemia, likely secondary to blood loss. This patient received 1 unit of packed red blood cells and will continue to monitor the hemoglobin and hematocrit. 3. Altered mental status. This is getting better. We will continue to monitor. 4. Type 2 diabetes. Continue with the same management. 5. Hypomagnesemia. Yesterday we had the result of the magnesium level and it is 1.6. We will continue to monitor. 6. Hypertension. The blood pressure is stable at this moment. The monitor reading is 136/74. Continue with the same treatment. 7. Deep vein thrombosis prophylaxis. This patient is on Lovenox. CRITICAL CARE TIME: 35 minutes.
--- NOTE | 2016-10-28 13:58 | PROGRESS NOTE ---
DATE: 10/28/2016 SUBJECTIVE: She was extubated yesterday evening. No major events. She is confused but alert. PHYSICAL EXAMINATION: Vital Signs: Temperature is afebrile. There is no tachycardia. Pulse is 74, oxygen saturation 94% on 4 L nasal cannula. General: She is alert, responsive but not really verbal. HEENT: Her pupils are mildly dilated. There may be a slight discrepancy with the left being slightly larger. There is some deformity of her right pupil. I wonder if she has had an injury or surgery, although the family denies this. Abdomen: Soft, appropriately tender. Incision is intact with some serosanguineous drainage but no cellulitis. Neurologic Exam: Nonfocal with equal strength in all extremities. She does follow commands. LABS: I reviewed her labs. White count is normal. Hematocrit is stable. Her ABG is not very good this morning, . Creatinine is normal at 1. ASSESSMENT AND PLAN: This is a 58-year-old female status post umbilical hernia repair followed by exploratory laparotomy with bowel resection. Pulmonary status is her main issue at this point. Her gas was poor this morning but she is alert and saturating well. Pulmonology is following. I appreciate their help. Dr. Quick is at the bedside. He is evaluating her neurologic status and making plans for a CT scan but does appear to be improving. Her renal dysfunction is improving as well. Continue NG tube and parenteral support for now. As she has return of bowel function we will begin to advance her diet. MTDD
[2016-10-29] MEDS: SODIUM CHLORIDE 0.9% INJ PRN (02:59)
[2016-10-29] MEDS: HUMALOG SUBQ SCH ×7 (03:00→22:05)
[2016-10-29] MEDS: PROTONIX IV SCH (03:00)
[2016-10-29] MEDS: DUONEB (A & A) INH SCH ×6 (03:12→23:07)
[2016-10-29 04:55] LABS: MANUAL DIFF NEEDED? NO
[2016-10-29 04:57] LABS: ALLEN TEST YES; BE 19.2 mmoll (-3.0-3.0); BLOOD TYPE ARTERIAL; DRAW SITE R RADIAL; METHB 1.4 % (0.0-1.5); O2(CT) 11.6 mL/dL (15.0-23.0); SAMPLE BLOOD; SAO2 87.7 % (95.0-100.0); THB 9.7 g/dL (11.5-17.4); pH(98.6) 7.51 (7.35-7.45)
[2016-10-29 04:59] LABS: PCO2(98.6) 56 mmHg (35-45); PO2(98.6) 48 mmHg (60-100)
[2016-10-29 05:00] LABS: MODALITY CANNULA
[2016-10-29 05:19] LABS: BASO% 0.8 % (0.0-0.8); EOS# 0.49 X1000 (0.0-0.7); EOS% 6.7 % (0.0-10.0); HEMATOCRIT 29.5 % (37.0-47.0); IMM GRAN# 0.08 X1000 (0.0-0.04); IMM GRAN% 1.1 % (0.0-0.5); LYMPH# 1.77 X1000 (1.2-3.4); LYMPH% 24.3 % (20.5-51.1); MCH 29.1 PG (27-31); MCHC 30.5 g/dL (33-37); MCV 95.5 FL (81-99); MONO# 0.72 X1000 (0.11-0.59); MONO% 9.9 % (1.7-9.3); MPV 9.6 FL (7.4-10.4); NEUT% 57.2 % (42.2-75.2); PLT 293 X1000 (130-400); RBC 3.09 XMIL (4.2-5.4)
[2016-10-29 05:36] LABS: CALCIUM 9.1 mg/dL (8.8-10.2); MAGNESIUM 1.8 mg/dL (1.5-2.7); POTASSIUM 3.4 mmol/L (3.5-5.1); TOTAL BILIRUBIN 0.57 mg/dL (0.20-1.00); TOTAL PROTEIN 6.4 g/dL (6.3-8.3)
[2016-10-29] MEDS: DILAUDID IV PRN ×3 (06:00→22:12)
[2016-10-29] MEDS: LOVENOX SUBQ SCH (06:00)
[2016-10-29] MEDS: LOPRESSOR IV SCH ×4 (06:05→23:20)
[2016-10-29] MEDS ORDERED: POTASSIUM CHLORIDE 40 MEQ/SWI 100 ML IV ONE (08:16)
[2016-10-29] MEDS: PERIDEX MT SCH ×2 (08:32→21:59)
[2016-10-29] MEDS: ZOSYN 2.25 GM/NS 50 ML IV SCH ×3 (08:32→23:18)
[2016-10-29] MEDS: CLINIMIX E 4.25%-5% SOLUTION 1,000 ML IV SCH ×2 (08:32→21:59)
--- NOTE | 2016-10-29 08:36 | Diag Imaging Result Document ---
PROCEDURE NAME: CHEST-PORTABLE - 10/29/2016 PORTABLE CHEST X-RAY, 10/29/2016: COMPARISON: 10/28/2016. FINDINGS: Stable right PICC line and nasogastric tube. Lung volumes are lower. Otherwise, stable central and bibasilar infiltrates/edema. Stable cardiomegaly. IMPRESSION: No significant change from prior.
--- NOTE | 2016-10-29 08:43 | PROGRESS NOTE ---
DATE: 10/29/2016 Ms. Юлия Nuon is now postop day 5 from exploratory laparotomy with a small-bowel resection. This surgery was done on postop day 2 from a strangulated ventral hernia repair with mesh. She developed abdominal pain, and I took her back to surgery on Saturday and did a small bowel resection. Postoperatively, she has been on the ventilator but was extubated over the weekend. Continues to struggle but has a good cough effort. She is awake and cooperative. I removed her NG tube this morning. Her midline incision is loosely closed. It appears to be clean without evidence of an incisional infection. Her heart rate is 77, blood pressure 119/65, O2 saturation 96% on a closed face mask. She still has a Reyes in. Her urine output is adequate. Her BUN and creatinine are 31 and 1.1. Her white blood cell count is normal. Her hematocrit is 29%. She is on IV Zosyn. She remains NPO. We will try to increase her activity today.
--- NOTE | 2016-10-29 11:52 | PROGRESS NOTE ---
DATE: 10/29/2016 SUBJECTIVE: This patient was extubated 2 days ago, she looks much better today. She is more alert. She is more oriented. Actually she is oriented x3. She is able to recognize her , and as per the also, she looks much better. She is not complaining of abdominal pain today. Physical therapy already was consulted, today the NG tube has been removed by surgery and we will monitor. OBJECTIVE: Vital Signs: Temperature 97.9 degrees, pulse 81, respiratory rate 16, blood pressure 116/63, O2 saturation 97% on a Venturi mask, 50% oxygen flow. HEENT: Head normocephalic. No trauma. PERRLA. Left pupil is slightly larger compared with the right pupil. Neck: Supple. No JVD. No masses. Central trachea. Chest: Scattered bilateral crackles. Cardiovascular: RRR. No murmurs. No gallops. No rubs. Abdomen: Soft, nontender, nondistended. No signs of peritoneal irritation. Midline wound looks clean and dry. No signs of bleed. Positive bowel sounds. Extremities: No edema. No clubbing. No cyanosis. Neurological: The patient is alert. She is oriented x3, she moves all 4 extremities. She has generalized weakness. LABORATORY: WBC 7.2, hemoglobin 9, hematocrit 29.5, platelets 293,000. Sodium 143, potassium 3.4, chloride 94, bicarbonate 34, BUN 31, creatinine 1.1, glucose 145, calcium 9.1, magnesium 1.8. Albumin 3. ASSESSMENT AND PLAN: 1. Strangulated ventral hernia repair, postoperative day #7, and exploratory laparotomy with dissection of a segment of the small bowel and removal of intra-abdominal mesh, postoperative day #5. At this point this patient has been extubated 2 days ago, today surgery removed the NG tube. This patient looks much better. She is not complaining about belly pain. She is more alert and she is oriented x 3. Physical therapy has been already consulted. 2. Anemia, likely secondary to blood loss. Will continue to monitor. 3. Altered mental status resolved. 4. Type 2 diabetes. Continue with the same management. This patient is on a sliding scale insulin. 5. Hypomagnesemia resolved. 6. Hypertension. The blood pressure is stable at this moment. 7. Deep vein thrombosis prophylaxis. This patient is on Lovenox. CLINICAL CARE TIME: 35 minutes.
[2016-10-30] MEDS: HUMALOG SUBQ SCH ×6 (03:13→23:16)
[2016-10-30] MEDS: PROTONIX IV SCH (03:14)
[2016-10-30] MEDS: SODIUM CHLORIDE 0.9% INJ PRN (03:14)
[2016-10-30] MEDS: DUONEB (A & A) INH SCH ×6 (03:31→23:02)
[2016-10-30 04:53] LABS: ALLEN TEST YES; BLOOD TYPE ARTERIAL; DRAW SITE R RADIAL; PO2(98.6) 61 mmHg (60-100); SAMPLE BLOOD; pH(98.6) 7.46 (7.35-7.45)
[2016-10-30 04:54] LABS: MODALITY VENTIMASK; PCO2(98.6) 57 mmHg (35-45)
[2016-10-30] MEDS: LOVENOX SUBQ SCH (05:23)
[2016-10-30] MEDS: DILAUDID IV PRN ×3 (05:23→20:28)
[2016-10-30 06:01] LABS: MANUAL DIFF NEEDED? NO
[2016-10-30] MEDS: LOPRESSOR IV SCH ×4 (06:13→23:17)
[2016-10-30 06:14] LABS: EOS# 0.43 X1000 (0.0-0.7); EOS% 6.3 % (0.0-10.0); HEMATOCRIT 28.8 % (37.0-47.0); HEMOGLOBIN 8.6 g/dL (12.0-16.0); IMM GRAN# 0.11 X1000 (0.0-0.04); IMM GRAN% 1.6 % (0.0-0.5); LYMPH# 1.81 X1000 (1.2-3.4); LYMPH% 26.5 % (20.5-51.1); MCH 28.9 PG (27-31); MCHC 29.9 g/dL (33-37); MCV 96.6 FL (81-99); MONO# 0.68 X1000 (0.11-0.59); MPV 9.7 FL (7.4-10.4); NEUT% 54.6 % (42.2-75.2); PLT 326 X1000 (130-400); RBC 2.98 XMIL (4.2-5.4)
[2016-10-30 06:38] LABS: CALCIUM 9.4 mg/dL (8.8-10.2); POTASSIUM 3.9 mmol/L (3.5-5.1)
--- NOTE | 2016-10-30 08:31 | Diag Imaging Result Document ---
PROCEDURE NAME: CHEST-PORTABLE - 10/30/2016 SINGLE FRONTAL RADIOGRAPH OF THE CHEST: COMPARISON: 10/29/2016. FINDINGS: Right PICC line is stable. Inspiration remains suboptimal. There has been interval removal of an NG tube. Central and bibasilar infiltrates persist and are probably stable given slight differences in positioning. No new consolidation is identified. Cardiac silhouette is stable. IMPRESSION: Interval removal of an NG tube. Essentially stable, otherwise.
--- NOTE | 2016-10-30 09:01 | PROGRESS NOTE ---
DATE: 10/30/2016 SUBJECTIVE: Ms. Nuno is now postop day 6 from a small bowel resection. Postoperatively, she was ventilated and now she has been extubated for several days, but her pulmonary function remains marginal. She is awake and cooperative. I removed her NG tube yesterday. OBJECTIVE: Her heart rate is 65-74, blood pressure 114/49. O2 saturation is 90% to 96%. The nurses report that when she moves around, her O2 saturation drops. A blood gas today is 7.46, pCO2 is 57, PaO2 is 61. Lactate is 1. Base excess is 14. She is on 50% closed face mask. Chest x-ray performed yesterday showed low lung volumes with infiltrates or edema involving both bases. She still has a Reyes catheter tube in place. Her urine output is adequate, and her BUN and creatinine are 37 and 1. Her white blood cell count remains normal. Hematocrit is 29% and stable. Her midline incision is loosely closed. There is no evidence of wound infection. Her abdomen is soft; does not appear to be overly tender. She has not had nausea or vomiting since removal of her NG tube yesterday morning. We will start clear liquids.
[2016-10-30] MEDS: PERIDEX MT SCH ×2 (09:17→20:27)
[2016-10-30] MEDS: ZOSYN 2.25 GM/NS 50 ML IV SCH ×3 (09:17→23:17)
[2016-10-30] MEDS: CLINIMIX E 4.25%-5% SOLUTION 1,000 ML IV SCH (11:30)
[2016-10-30] MEDS ORDERED: DILAUDID IV PRN (13:09)
--- NOTE | 2016-10-30 14:42 | PROGRESS NOTE ---
DATE: 10/30/2016 SUBJECTIVE: This patient was extubated 3 days ago. She has been having low oxygen saturation and she has been using a Venturi mask on and off. She is alert and oriented x3. She is able to recognize her and, as per the , she is much better. Her NG tube was removed yesterday and today we are going to start this patient on a clear liquid diet. OBJECTIVE: Vital signs: Temperature 98.5, pulse 71, respiratory rate 14, blood pressure 124/54, oxygen saturation 95 on Venturi mask. HEENT: Head normocephalic, atraumatic. KAREN. The left pupil is slightly larger compared with the right pupil. Neck: Supple. No JVD. No masses. Central trachea. Chest: Scattered bilateral crackles at the bases. Cardiovascular: RRR. No murmurs. No gallops. No rubs. Abdomen: Soft, nontender, nondistended. No signs of peritoneal irritation. Midline wound looks clean and dry. No signs of bleed. Positive bowel sounds. Extremities: No edema. No clubbing. No cyanosis. Neurologic: The patient is alert and oriented x3. She moves all four extremities. She has generalized weakness. LABORATORY DATA: WBC 6.8, hemoglobin 8.6, hematocrit 28.8, platelets 326. Sodium 146, potassium 3.9, chloride 101, bicarbonate 33, BUN 37, creatinine 1, glucose 138, calcium 9.4. BNP 359. ASSESSMENT AND PLAN: 1. Strangulated ventral hernia repair, postoperative day #8, and exploratory laparotomy with dissection of a segment of the small bowel and removal of intraabdominal mesh, postoperative day #6. This patient was extubated 3 days ago. Yesterday the Surgery Department removed the NG tube. Today we are going to start this patient on a clear liquid diet. She looks much better. 2. Respiratory failure, hypercapnic. This patient is on a Venturi mask. Will continue to monitor with breathing treatments. Pulmonary Department is following this patient. 3. Anemia, likely secondary to blood loss. Will continue to monitor. 4. Altered mental status, resolved. 5. Type 2 diabetes. Continue with the same management. This patient is on sliding scale insulin. 6. Hypomagnesemia, resolved. 7. Hypertension. The blood pressure is stable at this moment. 8. Deep venous thrombosis prophylaxis. Continue with Lovenox. CRITICAL CARE TIME: Thirty-five minutes.
[2016-10-31] MEDS: PROTONIX IV SCH (03:06)
[2016-10-31] MEDS: HUMALOG SUBQ SCH ×6 (03:06→23:40)
[2016-10-31] MEDS: SODIUM CHLORIDE 0.9% INJ PRN ×2 (03:06→20:00)
[2016-10-31] MEDS: DUONEB (A & A) INH SCH ×6 (03:31→23:12)
[2016-10-31] MEDS: DILAUDID IV PRN ×4 (04:32→20:00)
[2016-10-31 04:42] LABS: ALLEN TEST YES; BE 9.7 mmoll (-3.0-3.0); BLOOD TYPE ARTERIAL; DRAW SITE R RADIAL; METHB 1.7 % (0.0-1.5); MODALITY VENTIMASK; O2(CT) 16.7 mL/dL (15.0-23.0); PCO2(98.6) 48 mmHg (35-45); PO2(98.6) 58 mmHg (60-100); SAMPLE BLOOD; SAO2 93.1 % (95.0-100.0); THB 13.4 g/dL (11.5-17.4); pH(98.6) 7.47 (7.35-7.45)
[2016-10-31 05:16] LABS: MANUAL DIFF NEEDED? NO
[2016-10-31 05:24] LABS: BASO% 0.7 % (0.0-0.8); EOS# 0.59 X1000 (0.0-0.7); EOS% 6.4 % (0.0-10.0); HEMATOCRIT 33.5 % (37.0-47.0); HEMOGLOBIN 10.1 g/dL (12.0-16.0); IMM GRAN# 0.15 X1000 (0.0-0.04); IMM GRAN% 1.6 % (0.0-0.5); LYMPH# 1.89 X1000 (1.2-3.4); LYMPH% 20.6 % (20.5-51.1); MCH 28.9 PG (27-31); MCHC 30.1 g/dL (33-37); MONO# 0.73 X1000 (0.11-0.59); MPV 9.4 FL (7.4-10.4); NEUT% 62.7 % (42.2-75.2); PLT 378 X1000 (130-400); RBC 3.49 XMIL (4.2-5.4)
[2016-10-31 05:50] LABS: CALCIUM 9.6 mg/dL (8.8-10.2); POTASSIUM 3.9 mmol/L (3.5-5.1)
[2016-10-31] MEDS: LOVENOX SUBQ SCH (06:15)
[2016-10-31] MEDS: LOPRESSOR IV SCH ×4 (06:15→23:39)
--- NOTE | 2016-10-31 07:51 | Diag Imaging Result Document ---
PROCEDURE NAME: CHEST-PORTABLE - 10/31/2016 PORTABLE CHEST X-RAY, 10/31/2016: COMPARISON: 10/30/2016. FINDINGS: Stable right PICC line. Stable ill-defined bibasilar infiltrates. Stable critically low lung volumes. Heart size remains stable. IMPRESSION: No change from prior.
[2016-10-31] MEDS: PERIDEX MT SCH ×2 (08:17→20:09)
[2016-10-31] MEDS: ZOSYN 2.25 GM/NS 50 ML IV SCH ×3 (08:17→23:40)
--- NOTE | 2016-10-31 10:42 | PROGRESS NOTE ---
DATE: 10/31/2016 SUBJECTIVE: At the moment of my evaluation, this patient was complaining of abdominal pain, she is tolerating p.o. and she had also a bowel movement. The ABG showed hypoxemia and the CO2 is a little bit high at 48 today. She has been using a Venturi mask at 40% FiO2. She denies now nausea and vomiting. No fever. No chills. Physical therapy is on board. OBJECTIVE: Vital Signs: Temperature 98.8 degrees, pulse 73, respiratory rate 19, blood pressure 128/66, oxygen saturation 98 on 40% oxygen flow Venturi mask. HEENT: Head normocephalic. No trauma. PERRLA. Left pupil is slightly larger compared with the right pupil. Neck: Supple. No JVD. No masses. Central trachea. Chest: Scattered bilateral rales at the bases. Cardiovascular: RRR. No murmurs. No gallops. No rubs. Abdomen: Soft, nondistended. Mild tenderness to palpation around the surgical area. No signs of peritoneal irritation. Midline wound looks clean and dry. No signs of bleed. Positive bowel sounds. Extremities: No edema. No clubbing. No cyanosis. Neurological examination: The patient is alert and oriented x3. She moves all 4 extremities. She has generalized weakness. LABORATORY: WBC 9.1, hemoglobin 10.1, hematocrit 33.5, platelets 378. Sodium 143, potassium 3.9, chloride 101, bicarbonate 31, BUN 36, creatinine 1.1, glucose 140, calcium 9.6. ASSESSMENT AND PLAN: 1. Strangulated ventral hernia repair postoperative day #9 and exploratory laparotomy with dissection of a segment of the small bowel and removal of intra-abdominal mesh postoperative day #9. This patient was extubated 4 days ago. A couple days ago surgery removed the nasogastric tube. She is tolerating oral clear liquid diet, but she is still having abdominal pain. Surgery Department is on board. 2. Hypercapnic and hypoxemic respiratory failure. At this moment this patient is on a Venturi mask. We will continue to monitor. We will continue with breathing treatment. Pulmonary Department is following this patient. 3. Anemia. Stable. We will continue to monitor. 4. Altered mental status, resolved. 5. Type 2 diabetes. Continue with the same management. This patient is on sliding scale insulin. 6. Hypertension. The blood pressure is stable at this moment. 7. Deep vein thrombosis prophylaxis. Continue with Lovenox. 8. Physical deconditioning. This patient should go to a rehabilitation center upon discharge. She is on physical therapy at this moment.
[2016-10-31] MEDS: PHENERGAN IV PRN ×2 (14:05→20:00)
--- NOTE | 2016-10-31 16:15 | PROGRESS NOTE ---
DATE: 10/31/2016 SUBJECTIVE: Ms. Юлия Nuno remains in the ICU. She continues to be off the ventilator, breathing on her own. I took her NG tube out several days ago and have started her on clear liquids, but today she had some nausea and some abdominal discomfort. She did have a bowel movement yesterday. She is not sure whether she is having flatus. Her abdomen is mostly soft. OBJECTIVE: Vital signs: Her heart rate is 71, blood pressure 131/61. Her hematocrit is 33%. She still has a Reyes catheter tube in place. Her BUN and creatinine are 36 and 1.1. The rest of her electrolytes are normal. She is afebrile. She continues to be on IV Zosyn. Abdomen: Her midline incision is without evidence of infection and it is dressed. She remains weak and on closed face mask O2. ASSESSMENT AND PLAN: I spoke with the patient's at the bedside today. We will continue supportive care and clear liquids for now.
[2016-11-01] MEDS: PROTONIX IV SCH (02:44)
[2016-11-01] MEDS: SODIUM CHLORIDE 0.9% INJ PRN (02:44)
[2016-11-01] MEDS: HUMALOG SUBQ SCH ×5 (02:45→20:17)
[2016-11-01] MEDS: DUONEB (A & A) INH SCH ×5 (03:45→23:30)
[2016-11-01] MEDS: LOVENOX SUBQ SCH (06:20)
[2016-11-01] MEDS: LOPRESSOR IV SCH ×3 (06:20→17:32)
[2016-11-01 06:34] LABS: MANUAL DIFF NEEDED? NO
[2016-11-01 06:45] LABS: BASO% 0.8 % (0.0-0.8); EOS# 0.52 X1000 (0.0-0.7); HEMATOCRIT 34.5 % (37.0-47.0); HEMOGLOBIN 10.1 g/dL (12.0-16.0); IMM GRAN# 0.13 X1000 (0.0-0.04); IMM GRAN% 1.5 % (0.0-0.5); LYMPH# 2.05 X1000 (1.2-3.4); LYMPH% 23.7 % (20.5-51.1); MCH 28.5 PG (27-31); MCHC 29.3 g/dL (33-37); MCV 97.2 FL (81-99); MONO# 0.76 X1000 (0.11-0.59); MONO% 8.8 % (1.7-9.3); NEUT% 59.2 % (42.2-75.2); PLT 230 X1000 (130-400); RBC 3.55 XMIL (4.2-5.4)
--- NOTE | 2016-11-01 07:38 | Diag Imaging Result Document ---
PROCEDURE NAME: CHEST-PORTABLE - 11/01/2016 SINGLE FRONTAL RADIOGRAPH OF THE CHEST: COMPARISON: 10/31/2016. FINDINGS: Inspiration is suboptimal. Right PICC line is stable. Basilar atelectasis and/or infiltrate, more prominent on the right, are grossly unchanged. No new consolidation is identified. Cardiac silhouette is stable. IMPRESSION: Stable chest.
[2016-11-01 08:20] LABS: CALCIUM 8.9 mg/dL (8.8-10.2); POTASSIUM 3.8 mmol/L (3.5-5.1)
[2016-11-01] MEDS: ZOSYN 2.25 GM/NS 50 ML IV SCH ×2 (08:24→17:30)
[2016-11-01] MEDS: PERIDEX MT SCH ×2 (08:24→20:18)
--- NOTE | 2016-11-01 10:29 | PROGRESS NOTE ---
DATE: 11/01/2016 SUBJECTIVE: Patient reports feeling fine. Denies any abdominal pain, fever, chills, or difficulty in breathing. OBJECTIVE: Vital Signs: Temperature 100.7, heart rate 67, respiratory rate 13, blood pressure 150/66, O2 saturation 95% on 5 L nasal cannula. General Examination: This is a 61-year-old, female lying in bed, in no acute distress. HEENT: Head is normocephalic and atraumatic. Anicteric sclerae and pale conjunctivae. Mucous membranes moist. Neck: Supple. No JVD noted. No carotid bruits. No lymphadenopathy. No thyromegaly. Cardiovascular Examination: Some decreased breath sounds in both bases but patient is not using any accessory muscles or having work of breathing. Abdomen: Soft, nondistended. Midline surgical wound covered by dressing. No signs of peritoneal irritation. Bowel sounds present. No organomegaly. Extremities: No clubbing, cyanosis, or edema. Peripheral pulses present in both legs. Neurological Examination: Patient is alert and oriented x3. Able to move 4 extremities. Cranial nerves 2-12 are grossly normal. Laboratory Data: White cell count 8.65, hemoglobin 10.1, hematocrit 34.5, platelets 230,000. BMP shows BUN 34, creatinine 1, and glucose 136. ASSESSMENT AND PLAN: 1. Strangulated ventral hernia repair, postoperative day#9, and exploratory laparotomy with resection of segment of the small bowel and removal of intra-abdominal mesh, postoperative day 9 too. The was extubated [address] Fountain from general surgery is following this patient. The patient has been started on a liquid diet which the patient has tolerated very well. We will advance the diet as tolerated if okay with general surgery. 2. Hypercapnic and hypoxemic respiratory failure. Oxygen needs are coming down slowly. By now, she is requiring 5 L of oxygen by nasal cannula. We will continue with the same management, trying to wean off of oxygen. 3. Anemia of chronic disease, stable. 4. Altered mental status, resolved. 5. Diabetes type 2. We will continue with the same management. In this case, it is insulin sliding scale. 6. Hypertension. Blood pressure is getting a little bit high, in the range of 150, so we are going to restart on beta-blockers. 7. Physical deconditioning. Patient has become very weak while she was here in the hospital so social work lecturer has been consulted to find a rehabilitation bed for this patient.
[2016-11-01] MEDS: DIFLUCAN PO SCH (20:18)
[2016-11-01] MEDS: TYLENOL PO PRN (20:18)
[2016-11-02] MEDS: HUMALOG SUBQ SCH ×7 (00:13→23:37)
[2016-11-02] MEDS: LOPRESSOR IV SCH ×3 (00:18→15:56)
[2016-11-02] MEDS: ZOSYN 2.25 GM/NS 50 ML IV SCH ×2 (00:18→09:34)
[2016-11-02] MEDS: DUONEB (A & A) INH SCH ×5 (03:26→20:11)
[2016-11-02] MEDS: SODIUM CHLORIDE 0.9% INJ PRN (05:29)
[2016-11-02] MEDS: LOVENOX SUBQ SCH (05:30)
[2016-11-02] MEDS: PROTONIX IV SCH (05:30)
[2016-11-02] MEDS: TYLENOL PO PRN (06:14)
--- NOTE | 2016-11-02 06:59 | Diag Imaging Result Document ---
PROCEDURE NAME: CHEST-PORTABLE - 11/02/2016 PORTABLE CHEST: COMPARISON: 11/01/2016. FINDINGS: No change in the right-sided PICC line. The heart remains mildly prominent. Central vascular distention persists. There is right basilar atelectasis and I believe there is a small effusion. Interstitial markings in the left lung may be slightly less dense than on the prior study. IMPRESSION: Questionable mild interval improvement.
[2016-11-02] MEDS: DIFLUCAN PO SCH (09:33)
[2016-11-02] MEDS: PERIDEX MT SCH ×2 (09:34→21:04)
[2016-11-02] MEDS ORDERED: NORCO-7.5 PO PRN (17:04)
--- NOTE | 2016-11-02 17:26 | PROGRESS NOTE ---
DATE: 11/02/2016 SUBJECTIVE: Ms. Юлия Nuno is on the floor from the ICU today. She is awake, looks good clinically. Her midline incision is healing without evidence of infection. She is tolerating liquids. She still has a Reyes catheter tube in place. VITAL SIGNS: Her heart rate is 70, blood pressure 146/65, O2 saturation 95%. She is on nasal cannula O2. LABS: Urine output is adequate. Her white blood cell count has been normal. Her sugars are doing well. Her BUN and creatinine are 34 and 1.0. PLAN: 1. We will change all her medications to p.o. from IV. We will restart her home medications. We will stop Zosyn. 2. Advance her diet to a regular diet. 3. Remove her Reyes in the morning.
--- NOTE | 2016-11-02 18:25 | PROGRESS NOTE ---
DATE: 11/02/2016 SUBJECTIVE: Patient is feeling fine. Denies any fever, chills. OBJECTIVE: Vital Signs: Temperature 98.6 degrees, heart rate 70, respiratory 19, blood pressure 146/65, O2 saturation 95% on 2 L nasal cannula. General: This a 61-year-old female lying in bed in no acute distress. HEENT: Head is normocephalic, atraumatic. Anicteric sclerae and pale conjunctivae. Mucous membranes moist. Neck: Supple. No JVD noted. No carotid bruits. No lymphadenopathy. No thyromegaly. Cardiovascular: S1, S2 heard. No murmurs, gallops, or rubs. Regular rate and rhythm. Respiratory: Clear bilaterally to auscultation. No work of breathing or using accessory muscles. Abdomen: Soft, nontender to palpation. Midline surgical wound covered by dressing. No signs of peritoneal irritation. Bowel sounds present. No organomegaly. Extremities: No clubbing, cyanosis or edema. Peripheral pulses present in both legs. Neurologic exam: Patient alert, oriented x3. Moves 4 extremities. Cranial nerves 2-12 grossly normal. LABORATORY DATA: There is no labs from today. ASSESSMENT AND PLAN: 1. Strangulated ventral hernia repair postoperatively day #10 and exploratory laparotomy with resection of segment of small bowel and removal of intraabdominal mesh, patient is doing fine. Dr. Gaming his primary surgeon following this patient daily. Will follow recommendations. Patient is eating fine. 2. Hypercapnic and hypoxemic respiratory failure. Oxygen needs continue to come down. Will continue with same management. 3. Anemia chronic disease stable. 4. Altered mental status resolved. 5. Diabetes mellitus type 2. Will continue with the sliding scale insulin. 6. Hypertension. Blood pressure is under control. 7. Physical deconditioning . Patient was supposed to be sent to rehab facility today but the admission was denied because that they have not provide any insurance to her.
[2016-11-02] MEDS: GLUCOPHAGE PO SCH (18:31)
[2016-11-02] MEDS: PAMELOR PO SCH (21:04)
[2016-11-03] MEDS: DUONEB (A & A) INH SCH ×7 (00:05→23:28)
[2016-11-03 04:21] LABS: ALLEN TEST YES; BE 3.6 mmoll (-3.0-3.0); BLOOD TYPE ARTERIAL; DRAW SITE R RADIAL; METHB 1.9 % (0.0-1.5); O2(CT) 13.2 mL/dL (15.0-23.0); PCO2(98.6) 44 mmHg (35-45); PO2(98.6) 76 mmHg (60-100); SAMPLE BLOOD; THB 9.9 g/dL (11.5-17.4); pH(98.6) 7.42 (7.35-7.45)
[2016-11-03 04:25] LABS: MODALITY CANNULA
[2016-11-03] MEDS: LOVENOX SUBQ SCH (06:13)
[2016-11-03] MEDS: HUMALOG SUBQ SCH ×5 (06:15→23:31)
--- NOTE | 2016-11-03 09:20 | Diag Imaging Result Document ---
PROCEDURE NAME: CHEST-PORTABLE - 11/03/2016 SINGLE FRONTAL RADIOGRAPH OF THE CHEST: COMPARISON: 11/02/2016. FINDINGS: Right PICC line is stable. Inspiration is suboptimal. Linear density at the right lung base and the left central mid lung zone on the left are essentially stable. This suggests atelectasis and/or mild scarring. No new consolidations identified. Cardiac silhouette is stable. IMPRESSION: Stable chest.
--- NOTE | 2016-11-03 11:16 | DISCHARGE SUMMARY ---
ADMISSION DATE: 10/22/2016 DISCHARGE DATE: 11/02/2016 CONSULTATIONS: 1. Dr. Curtis Fountain with General Surgery. 2. Dr. Darion Santo with Nephrology. PERTINENT PROCEDURES: 1. Abdomen and pelvis CT showed moderate size umbilical hernia with a small ___ ____incarcerated bowel and associated small bowel obstruction. 2. Open repair of a strangulated ventral hernia using composite Parietex mesh by Dr. Fountain. 3. Renal ultrasound grossly unremarkable. 4. Head CT showed no hemorrhage. 5. Exploratory laparotomy with resection of a segment of small bowel secondary from an acute abdomen postop day 2. Mesh repair of strangulated ventral hernia using mesh. Removal of intra-abdominal mesh. 6. Echocardiogram showed an ejection fraction of 60%. Calcification at the base of the aortic valve without aortic stenosis. HOSPITAL COURSE: Briefly, Ms Nuno is a 61-year-old female with a past medical history of diabetes mellitus, type 2, hypertension, hypothyroidism who came to the ED complaining of a 2-day history of periumbilical pain which was sharp and constant, worse with movement. All started after she was eating dinner. She reported 6 episodes of nonbloody diarrhea prior to the onset of her pain. She denied that any vomitus occurred with this. She reported late in the evening she noticed a "lump just below her umbilicus." It was very tender when she touched it. Since the hours of early Saturday, prior to her admission, the patient had not passed any gas or had any bowel movement. She tried drinking water but it made her nauseous, no vomiting per se. Imaging done in the ED did show a moderate size umbilical hernia with a small loop of incarcerated bowel associated with small bowel obstruction. Dr. Fountain was consulted. He did see the patient, I believe, in the ED. The patient underwent an open repair of a strangulated ventral hernia with mesh by Dr. Fountain. After surgery, the patient did have an acute kidney injury. Dr. Santo was consulted for that. She was continued on IV fluids. Renal ultrasound did not show anything acute. Unfortunately, 2 days later, the patient developed an acute abdomen. She underwent an exploratory laparotomy with resection of a segment of small bowel and removal of intra-abdominal mesh by Dr. Fountain. The patient was continued on her antibiotics. She did remain quite confused after her surgery. Head CT was performed that did not show anything acute. The patient did also develop some respiratory failure after surgery. She had to be intubated and was on full vent ventilatory support. Dr. Pedro was consulted for ventilator management. The patient did have increased edema changes. Her PEEP was increased and also increased ventilation for her acidosis as well as added sodium bicarb again for her continued acute renal failure, as well as antibiotics and gastric acid suppression with DVT prophylaxis. Ms Nuno was able to get off the ventilator. She was able to get her NG tube removed. Her midline incision was loosely closed. There is no evidence of any wound infection. Abdomen is soft. It does not appear to be overly tender. No nausea or vomiting after the removal of her NG tube. She was initiated on a clear liquid diet. She did have some complaints of nausea with that. She had a small bowel movement. Her abdomen still remains soft. The patient was still requiring supplemental O2 , weaning as appropriate. Her altered mental status resolved. Physical therapy was also consulted to work with the patient as she became very weak throughout her stay in the ICU. [employer] was also consulted to find a rehab bed for the patient. Dr. Ashley has assessed the patient as well as talked with General Surgery. They feel that she is appropriate for discharge to rehab today. VITAL SIGNS AT TIME OF DISCHARGE: Temperature is 98.1 degrees, heart rate 75, respirations 20, blood pressure is 142/70. O2 was 92% on nasal cannula. DISCHARGE DIET: Remains clear liquids with Ensure clear with each meal. DISCHARGE MEDICATIONS: As per Dr. Ashley. 1. Diflucan 150 mg p.o. daily. 2. [place] 7.5/325 one each p.o. q.4 hours p.r.n. 3. Albuterol 3 mL inhaled q.4 hours p.r.n. wheezing. 4. Synthroid 150 mcg p.o. daily. 5. Protonix 40 mg p.o. daily. 6. Pamelor 25 mg p.o. every evening. 7. Lasix 40 mg p.o. daily. 8. Klor-Con 20 mEq p.o. daily. 9. Hydrochlorothiazide 25 mg p.o. daily. 10. Glucophage 5 mg p.o. b.i.d. 11. Glipizide 10 mg p.o. daily. 12. Gabapentin 300 mg p.o. t.i.d. 13. Atenolol 50 mg p.o. daily. FOLLOWUP: The patient is being discharged to rehab. She will follow up with her primary care physician, Dr. Elizalde, in 1-2 weeks. She will need to follow up with Dr. Fountain in the outpatient setting to assess incisions. The patient is return to the ED for any worsening of symptoms. DISCHARGE TIME: 35 minutes. Addendum: I was informed in late afternoon that patient's insurance company have not approved rehab for her so she will stay until next Saturday. Dictated by VANIA Greene for Nathaniel Hunt MD MTDD
[2016-11-03] MEDS: DIFLUCAN PO SCH (11:53)
[2016-11-03] MEDS: GLUCOTROL PO SCH (11:53)
[2016-11-03] MEDS: KLOR-CON PO SCH (11:53)
[2016-11-03] MEDS: LASIX PO SCH (11:53)
[2016-11-03] MEDS: SYNTHROID PO SCH (11:53)
[2016-11-03] MEDS: TENORMIN PO SCH (11:54)
[2016-11-03] MEDS: PROTONIX PO SCH (11:54)
[2016-11-03] MEDS: HYDROCHLOROTHIAZIDE PO SCH (11:54)
[2016-11-03] MEDS: PERIDEX MT SCH ×2 (11:59→21:02)
[2016-11-03] MEDS: GLUCOPHAGE PO SCH ×2 (11:59→18:09)
--- NOTE | 2016-11-03 16:28 | PROGRESS NOTE ---
DATE: 11/03/2016 SUBJECTIVE: Patient is feeling fine. Denies any complaint, no fever or chills or abdominal pain. OBJECTIVE: Vital Signs: Temperature 97.9 degrees, heart rate 88, respiratory rate 20, blood pressure 148/79, O2 saturation 94% on room air. General Examination: This is a 61-year-old female lying in bed in no acute distress. HEENT: Head is normocephalic, atraumatic. Anicteric sclerae and pale conjunctivae. Mucous membranes moist. Neck: Supple. No JVD noted. No carotid bruits. No lymphadenopathy. No thyromegaly. Cardiovascular: S1, S2 heard. No murmurs, gallops or rubs and regular rate and rhythm. Respiratory: Clear bilaterally to auscultation. No work of breathing or using accessory muscles. Abdomen: Soft, nontender to palpation. Midline surgical wound covered by dressing. No signs of peritoneal irritation. Bowel sounds present. No organomegaly. Extremities: No clubbing, cyanosis or edema. Peripheral pulses present in both legs. Neurological: Patient alert and oriented x3. Able to move 4 extremities. Cranial nerves 2-12 grossly normal. LABORATORY DATA: None from today. ASSESSMENT AND PLAN: 1. Strangulated ventral hernia repair postoperative day #11 and exploratory laparotomy with resection of segment of small bowel and removal of intraabdominal mesh. Patient is doing fine. Dr. Francis Fountain from general surgery is following this patient. Patient is stable eating okay. 2. Hypercapnic, hypoxemic respiratory failure. Patient oxygen needs continues to come down now is requiring 3 L of oxygen. 3. Anemia chronic disease. That condition is stable. Will continue with the same management. 4. Altered mental status resolved. 5. Diabetes mellitus type 2. Patient is stable and will continue using sliding scale insulin. 6. Hypertension. Blood pressure is under control. Will continue with the same management. 7. Physical deconditioning. The patient was supposed to be sent to rehab yesterday but unfortunately insurance company did not provide any approval for his stay over there so will wait until next Saturday.
[2016-11-03] MEDS: PAMELOR PO SCH (21:02)
[2016-11-04] MEDS: DUONEB (A & A) INH SCH ×6 (04:13→23:25)
[2016-11-04] MEDS: HUMALOG SUBQ SCH ×5 (04:29→23:26)
[2016-11-04] MEDS: LOVENOX SUBQ SCH (06:24)
[2016-11-04] MEDS: DIFLUCAN PO SCH (10:13)
[2016-11-04] MEDS: PERIDEX MT SCH ×2 (10:13→22:33)
[2016-11-04] MEDS: GLUCOTROL PO SCH (10:14)
[2016-11-04] MEDS: PROTONIX PO SCH (10:14)
[2016-11-04] MEDS: SYNTHROID PO SCH (10:14)
[2016-11-04] MEDS: LASIX PO SCH (10:14)
[2016-11-04] MEDS: TENORMIN PO SCH (10:14)
[2016-11-04] MEDS: GLUCOPHAGE PO SCH ×2 (10:14→18:51)
[2016-11-04] MEDS: KLOR-CON PO SCH (10:14)
[2016-11-04] MEDS: HYDROCHLOROTHIAZIDE PO SCH (10:15)
--- NOTE | 2016-11-04 16:49 | PROGRESS NOTE ---
DATE: 11/04/2016 SUBJECTIVE: Patient is feeling fine. Reports mild pain in the anterior abdominal wall. OBJECTIVE: Vital Signs: Temperature 97.5 degrees, heart rate 51, respiratory rate 18, blood pressure 119/55, O2 saturation 94% on 2 L nasal cannula. General Examination: This is a 61-year- old female lying in bed in no acute distress. HEENT: Head is normocephalic, atraumatic. Anicteric sclerae and pale conjunctivae. Mucous membranes moist. Neck: Supple. No JVD noted. No carotid bruits. No lymphadenopathy. No thyromegaly. Cardiovascular: S1, S2 heard. No murmurs, gallops, or rubs. Regular rate and rhythm. Respiratory: Clear bilaterally to auscultation. No work of breathing or using accessory muscles. Abdomen: Soft, nontender to palpation. Bowel sounds present. No organomegaly. Extremities: No clubbing, cyanosis, or edema. Peripheral pulses present in both legs. Neurological: Patient is alert, oriented x3. Able to move her extremities. Cranial nerves 2-12 grossly normal. LABORATORY DATA: None. ASSESSMENT AND PLAN: 1. Strangulated ventral hernia repair postop day #12 exploratory laparotomy with resection of segment of small bowel and removal of intraabdominal mesh. Patient is doing good. Mild pain in the surgical area. General surgery following this patient. 2. The patient is eating okay having normal bowel movements. Will continue following recommendations from general surgery. 3. Hypercapnic hypoxemic respiratory failure. Patient oxygen needs are coming down and now she is requiring 2 L of oxygen. 4. Anemia chronic disease stable. 5. Altered mental status resolved. 6. Diabetes mellitus type 2. Will continue with sliding scale insulin. 7. Hypertension. Blood pressure is under control. Will continue with same management. 8. Physical deconditioning. Patient waiting for a bed in the rehab facility. Patient was supposed to be sent to rehab last Saturday but because insurance company has not approved the authorization for go to rehab facility most probably tomorrow she will be leaving.
[2016-11-04] MEDS: PAMELOR PO SCH (22:33)
[2016-11-05] MEDS: DUONEB (A & A) INH SCH ×4 (03:30→16:29)
[2016-11-05] MEDS: LOVENOX SUBQ SCH (06:41)
--- NOTE | 2016-11-05 06:50 | Diag Imaging Result Document ---
PROCEDURE NAME: CHEST-PORTABLE - 11/05/2016 PORTABLE CHEST: COMPARISON: Compared to 11/03/2016. FINDINGS: No change in the right-sided PICC line. There has been partial clearing of the atelectasis or infiltrates in the right base. The markings in the mid left lung remain. No effusions identified. IMPRESSION: Mild interval improvement.
[2016-11-05] MEDS: HUMALOG SUBQ SCH ×3 (06:58→13:17)
[2016-11-05] MEDS: HYDROCHLOROTHIAZIDE PO SCH (08:01)
[2016-11-05] MEDS: GLUCOPHAGE PO SCH (08:01)
[2016-11-05] MEDS: KLOR-CON PO SCH (08:01)
[2016-11-05] MEDS: TENORMIN PO SCH (08:01)
[2016-11-05] MEDS: GLUCOTROL PO SCH (08:01)
[2016-11-05] MEDS: PROTONIX PO SCH (08:02)
[2016-11-05] MEDS: LASIX PO SCH (08:02)
[2016-11-05] MEDS: PERIDEX MT SCH (08:02)
[2016-11-05] MEDS: DIFLUCAN PO SCH (08:02)
[2016-11-05] MEDS: SYNTHROID PO SCH (08:02)
[2016-11-05 16:26] VITALS: BP 119/56
== END 2016-11-05 17:35 | disposition home health service (06) | DRG 329 ==
LOC: ED 20:12 → OR 10-22 00:47 → OBSVTOIN 10-22 04:06 → 4N 10-22 04:06 → DIRADM 10-23 08:10 → 4N 10-23 08:12 → ICU 10-24 13:16 → 4N 11-01 14:49
PROVIDERS: ATTEND Internal Medicine
PROC: 0WUF0JZ Supplement Abdominal Wall with Synthetic Substitute, Open Approach (ICD-10-PCS; 2016-10-22)
PROC: 0WPF0JZ Removal of Synthetic Substitute from Abdominal Wall, Open Approach (ICD-10-PCS; 2016-10-24)
PROC: 5A1945Z Respiratory Ventilation, 24-96 Consecutive Hours (ICD-10-PCS; 2016-10-24)
PROC: 0DBB0ZZ Excision of Ileum, Open Approach (ICD-10-PCS; principal; 2016-10-24 12:29)
PROC: 3E0336Z Introduction of Nutritional Substance into Peripheral Vein, Percutaneous Approach (ICD-10-PCS; 2016-10-25)
PROC: 02HV33Z Insertion of Infusion Device into Superior Vena Cava, Percutaneous Approach (ICD-10-PCS; 2016-10-26)
PROC: 30233N1 Transfusion of Nonautologous Red Blood Cells into Peripheral Vein, Percutaneous Approach (ICD-10-PCS; 2016-10-27)
DX: K43.7 Other and unspecified ventral hernia with gangrene (principal); J95.821 Acute postprocedural respiratory failure; N17.9 Acute kidney failure, unspecified; J81.1 Chronic pulmonary edema; E11.22 Type 2 diabetes mellitus with diabetic chronic kidney disease; K55.8 Other vascular disorders of intestine; E87.2 Acidosis; Z68.42 Body mass index [BMI] 45.0-49.9, adult; I45.2 Bifascicular block; L03.311 Cellulitis of abdominal wall; E11.40 Type 2 diabetes mellitus with diabetic neuropathy, unspecified; N18.3 Chronic kidney disease, stage 3 (moderate); E66.01 Morbid (severe) obesity due to excess calories; I12.9 Hypertensive chronic kidney disease with stage 1 through stage 4 chronic kidney disease, or unspecified chronic kidney disease; E87.6 Hypokalemia; E83.42 Hypomagnesemia; D50.0 Iron deficiency anemia secondary to blood loss (chronic); H57.02 Anisocoria; D63.8 Anemia in other chronic diseases classified elsewhere; E03.9 Hypothyroidism, unspecified; M79.7 Fibromyalgia; M81.0 Age-related osteoporosis without current pathological fracture; G89.29 Other chronic pain; M54.9 Dorsalgia, unspecified; Z79.899 Other long term (current) drug therapy; Z79.84 Long term (current) use of oral hypoglycemic drugs; Z79.1 Long term (current) use of non-steroidal anti-inflammatories (NSAID); Z83.3 Family history of diabetes mellitus; Z87.891 Personal history of nicotine dependence
CPT/HCPCS: 36569; 70450; 71010; 74022; 74176; 76770; 80048; 80053; 80069; 81001; 82009; 82150; 82570; 82805; 82948; 83036; 83605; 83690; 83735; 83880; 83935; 84100; 84132; 84156; 84300; 84439; 84443; 84540; 85014; 85018; 85025; 85610; 86850; 86900; 86901; 86920; 87070; 87205; 88304; 88307; 93005; 93010; 93306; 94002; 94003; 94640; 94761; 94762; 94799; 96365; 96375; C1781; C9113; J0131; J0330; J1100; J1170; J1650; J1815; J1885; J1940; J2060; J2270; J2370; J2405; J2543; J2550; J3010; J3475; J3480; J7030; J7040; J7050; J7060; J7120; P9016; 97110-GP; 97116-GP; 97530-GP; J2710; S0164

== ENCOUNTER 2017-02-04 07:30 | Inpatient (IN) ==
[2017-01-30 12:53] LABS: URINE MICRO REVIEW NEEDED? NO; URINE SOURCE CLEAN CATCH
--- NOTE | 2017-01-30 13:04 | EKG Report ---
Test Performed on : 01/30/2017 12:38:20 PM Test Reason : PAT Blood Pressure : / mmHG Vent. Rate : 068 BPM Atrial Rate : 068 BPM P-R Int : 208 ms QRS Dur : 146 ms QT Int : 432 ms P-R-T Axes : 059 -67 031 degrees QTc Int : 459 ms Normal sinus rhythm. Right bundle branch block Left anterior fascicular block Bifascicular block Moderate voltage criteria for LVH, may be normal variant Possible Lateral infarct , age undetermined Abnormal ECG When compared with ECG of 22-OCT-2016 06:50, Borderline criteria for Lateral infarct are now present Confirmed by Juan Manuel DAVIS, Fabio Navarro ([id number]) on 02/01/2017 9:13:02 AM
[2017-01-30 13:13] LABS: MANUAL DIFF NEEDED? NO
[2017-01-30 13:25] LABS: EOS# 0.38 X1000 (0.0-0.7); EOS% 5.2 % (0.0-10.0); HEMATOCRIT 41.4 % (37.0-47.0); HEMOGLOBIN 12.8 g/dL (12.0-16.0); IMM GRAN# 0.02 X1000 (0.0-0.04); IMM GRAN% 0.3 % (0.0-0.5); LYMPH# 2.69 X1000 (1.2-3.4); LYMPH% 37.1 % (20.5-51.1); MCHC 30.9 g/dL (33-37); MCV 93.9 FL (81-99); MONO# 0.51 X1000 (0.11-0.59); MPV 10.1 FL (7.4-10.4); NEUT% 49.4 % (42.2-75.2); PLT 218 X1000 (130-400); RBC 4.41 XMIL (4.2-5.4)
[2017-01-30 13:32] LABS: BILIRUBIN URINE NEGATIVE (NEGATIVE); BLOOD URINE NEGATIVE (NEGATIVE); COLOR YELLOW; GLUCOSE URINE NEGATIVE (NEGATIVE); LEUKOCYTES URINE NEGATIVE (NEGATIVE); NITRITE URINE POSITIVE (NEGATIVE); PH URINE 7.5; PROTEIN URINE NEGATIVE (NEGATIVE); SP GRAVITY URINE 1.011; TURBIDITY URINE CLEAR (CLEAR); UROBILINOGEN URINE NORMAL (NORMAL)
[2017-01-30 13:33] LABS: UR EPITHELIAL CELLS <10 /HPF (<10); URINE BACTERIA 4+ /HPF; URINE RBC <10 /HPF (<10); URINE WBC <10 /HPF (<10)
[2017-01-30 13:44] LABS: INR 0.95; PROTIME 9.9 Seconds (9.2-11.7); PTT 27.8 Seconds (22.0-36.0)
[2017-01-30 14:03] LABS: CALCIUM 9.5 mg/dL (8.8-10.2); POTASSIUM 3.8 mmol/L (3.5-5.1)
[2017-02-04] MEDS ORDERED: KEFZOL 2 GM/D5W 2 GM/50 ML IVPB ONE (08:34)
[2017-02-04] MEDS ORDERED: COLACE ONE (08:34)
[2017-02-04] MEDS ORDERED: LYRICA ONE (08:34)
[2017-02-04] MEDS ORDERED: CELEBREX ONE (08:34)
[2017-02-04] MEDS ORDERED: REGLAN ONE (08:34)
[2017-02-04] MEDS ORDERED: PEPCID ONE (08:34)
[2017-02-04] MEDS ORDERED: LR 1,000 ML ONE ×2 (08:34→13:31)
[2017-02-04] MEDS ORDERED: TORADOL ONE (10:16)
[2017-02-04] MEDS ORDERED: VANCOMYCIN ONE (10:17)
[2017-02-04] MEDS ORDERED: CYKLOKAPRON 1,000 MG/NS 1,000 MG/100 ML IVPB ONE ×2 (10:17→10:18)
[2017-02-04] MEDS ORDERED: SODIUM CHLORIDE 0.9% ONE (10:17)
[2017-02-04] MEDS ORDERED: EXPAREL 1.3% ONE (10:17)
[2017-02-04] MEDS ORDERED: MARCAINE 0.25% PF/EPI 1:200,000 ONE (10:17)
[2017-02-04] MEDS ORDERED: NEOSPORIN G.U. IRRIGANT ONE (10:17)
[2017-02-04 11:38] LABS: URINE MICRO REVIEW NEEDED? NO; URINE SOURCE CATH
[2017-02-04 11:43] LABS: BILIRUBIN URINE NEGATIVE (NEGATIVE); BLOOD URINE NEGATIVE (NEGATIVE); COLOR YELLOW; GLUCOSE URINE NEGATIVE (NEGATIVE); LEUKOCYTES URINE NEGATIVE (NEGATIVE); NITRITE URINE NEGATIVE (NEGATIVE); PROTEIN URINE NEGATIVE (NEGATIVE); SP GRAVITY URINE 1.013; TURBIDITY URINE CLEAR (CLEAR); UROBILINOGEN URINE NORMAL (NORMAL)
[2017-02-04 11:45] LABS: UR EPITHELIAL CELLS <10 /HPF (<10); URINE BACTERIA NEGATIVE /HPF; URINE RBC <10 /HPF (<10); URINE WBC <10 /HPF (<10)
[2017-02-04] MEDS ORDERED: NS 1,000 ML ONE (12:29)
[2017-02-04] MEDS ORDERED: VERSED ONE (13:03)
[2017-02-04] MEDS ORDERED: FENTANYL ONE (13:03)
[2017-02-04] MEDS ORDERED: DIPRIVAN 1% ONE (13:03)
[2017-02-04] MEDS ORDERED: DIPRIVAN 1% 500 MG/50 ML BOTTLE ONE (13:04)
[2017-02-04] MEDS ORDERED: MILK OF MAGNESIA PO PRN (13:30)
[2017-02-04] MEDS ORDERED: MORPHINE IV PRN (13:30)
[2017-02-04] MEDS ORDERED: AMBIEN PO PRN (13:30)
[2017-02-04] MEDS ORDERED: ZOFRAN IV PRN (13:30)
[2017-02-04] MEDS ORDERED: NEO-SYNEPHRINE ONE (13:30)
[2017-02-04] MEDS ORDERED: SODIUM CHLORIDE 0.9% 20 ML ONE (13:30)
[2017-02-04] MEDS ORDERED: XYLOCAINE-MPF 2% ONE (13:31)
[2017-02-04] MEDS ORDERED: EPHEDRINE ONE (13:31)
[2017-02-04] MEDS ORDERED: OFIRMEV 1000 MG/ISOTONIC SOLN 1,000 MG/100 ML BOTTLE ONE (13:31)
[2017-02-04] MEDS ORDERED: VENTOLIN HFA INH PRN (14:39)
[2017-02-04] MEDS: TYLENOL PO SCH ×2 (17:08→20:58)
[2017-02-04] MEDS: ULTRAM PO SCH ×2 (17:09→20:59)
[2017-02-04] MEDS: NEURONTIN PO SCH (17:09)
[2017-02-04] MEDS: NS 1,000 ML IV SCH ×2 (17:10→17:12)
[2017-02-04] MEDS: GLUCOPHAGE PO SCH (17:10)
[2017-02-04] MEDS: KEFZOL 2 GM/D5W 2 GM/50 ML IVPB IV SCH (17:13)
[2017-02-04] MEDS: OXY IR PO PRN ×2 (17:18→20:57)
[2017-02-04] MEDS: LYRICA PO SCH (20:58)
[2017-02-04] MEDS: CELEBREX PO SCH (20:58)
[2017-02-04] MEDS: COLACE PO SCH (20:58)
[2017-02-04] MEDS: SEPTRA DS PO SCH (20:58)
[2017-02-04] MEDS ORDERED: PAMELOR PO SCH (21:00)
[2017-02-05] MEDS: KEFZOL 2 GM/D5W 2 GM/50 ML IVPB IV SCH (02:19)
[2017-02-05] MEDS: TYLENOL PO SCH ×3 (02:20→13:44)
[2017-02-05] MEDS: ULTRAM PO SCH ×3 (02:20→13:43)
[2017-02-05] MEDS: NS 1,000 ML IV SCH (02:25)
[2017-02-05] MEDS ORDERED: XARELTO PO SCH (06:00)
[2017-02-05] MEDS: OXY IR PO PRN ×2 (06:08→12:00)
[2017-02-05] MEDS: PERIDEX MT SCH ×2 (06:12→08:30)
[2017-02-05 06:14] LABS: HEMATOCRIT 32.7 % (37.0-47.0); HEMOGLOBIN 10.1 g/dL (12.0-16.0)
[2017-02-05 07:01] LABS: CALCIUM 8.6 mg/dL (8.8-10.2); POTASSIUM 4.7 mmol/L (3.5-5.1)
[2017-02-05 07:21] VITALS: BP 108/57
--- NOTE | 2017-02-05 08:24 | OPERATIVE NOTE ---
PROCEDURE DATE: 02/04/2017 PREOPERATIVE DIAGNOSIS: Right knee degenerative joint disease. POSTOPERATIVE DIAGNOSIS: Right knee degenerative joint disease. PROCEDURE: Right total knee arthroplasty using a DonJoy orthopedic size 6 femoral component, a size 6 base plate, a 14 mm articular insert, and a 35 mm patellar component. ANESTHESIA: Spinal. SURGEON: Dallin Bejarano MD FLIGHT INFORMATION EXPEDITER: Brooklyn Montelongo COMPLICATIONS: None. BLOOD LOSS: Minimal. TOURNIQUET TIME: Approximately an hour and a half. DESCRIPTION OF PROCEDURE: The patient brought to operative suite and placed in supine position. After successful administration of general anesthesia, a well-padded tourniquet was placed on the right proximal thigh. The right lower extremity was prepped and draped in usual sterile fashion. Leg was exsanguinated. Tourniquet insufflated to 350 torr. A longitudinal incision was made beginning at the superior pole of the patella and extended distally to the tibia tuberosity. It was dissected sharply through skin and subcutaneous tissue, and full-thickness skin flaps were elevated medially and laterally. A medial arthrotomy was made with a vastus snip. The medial capsule was elevated off the medial tibial plateau. The prepatellar fat pad, ACL, PCL, medial meniscus, lateral meniscus were excised. A drill was entered in the center of distal femur. An intramedullary guide was placed, distal cutting block was pinned into place, distal cut was made with an oscillating saw. The femur was sized to a size 6, a size 6 cutting block was pinned in place. The anterior cuts, chamfer cuts, and posterior condylar cuts were made with the oscillating saw. The box cutting block was pinned into place. A box cut was made with a box osteotome and oscillating saw. Posterior condyle osteophytes removed with curved osteotome and rongeur. Attention was then directed to the tibia. A drill was entered in the center of the tibia. An intramedullary guide was placed. Alignment checked with drop lizzy, referencing off the anterior cortex of the tibia and the second ray of the foot, and taking 4 mm off the low side of the tibia, which in this case, was medially. The articular surface of the tibial plateau was then removed with oscillating saw. The flexion-extension gaps were checked and balanced at 14 mm. She did have an incompetent MCL that was repaired with #2 FiberWire with multiple stitches. The tibia was sized to a size 6, a size 6 guide was used for the fin punch. The tibial trial, femoral trial, and 14 mm articular insert were placed, taken through range of motion found to have excellent alignment, balancing, range of motion. Attention was then directed to the patella, 9 mm of the articular surface of patella removed with an oscillating saw. Patella sized to a size 35. A size 35 guide was used to drill peg holes. The lateral facet was chamfered 30-45 degrees. Patella trial was placed, taken through range of motion, found to have excellent patella tracking. All trials were then removed. The knee was copiously irrigated and dried, being certain all bone debris was removed. The tibial component, femoral component, and patellar component were cemented into the place, excess cement being removed with a Harmony. Once the cement had hardened, excess cement was again removed with an osteotome. The knee was again copiously irrigated and dried, being certain all bone and cement debris were removed. The trial articular insert was removed. The knee was copiously infiltrated with Exparel, including the posterior capsule, anterior capsule, medial and lateral collateral ligaments, anterior musculature, and subcutaneous tissue. The definitive articular insert was locked into place and the knee was again taken through range of motion. Again, found to have excellent alignment, balancing, range of motion, patellar tracking. The MCL repair was intact as well. A drain was placed exiting superior laterally and buried in the lateral gutter. The medial arthrotomy was closed with 0 V-Loc suture and then the skin edge was approximated with 2-0 Vicryl and Prineo, and a sterile dressing was applied. The patient tolerated the procedure well without complication. At the end of the procedure, all counts correct x2. The patient was transferred to the recovery room in stable condition. cc: Dallin Bejarano MD
[2017-02-05] MEDS: NEURONTIN PO SCH ×2 (08:32→12:00)
[2017-02-05] MEDS: SEPTRA DS PO SCH (08:32)
[2017-02-05] MEDS: CELEBREX PO SCH (08:33)
[2017-02-05] MEDS: GLUCOPHAGE PO SCH (08:34)
[2017-02-05] MEDS: TENORMIN PO SCH ×2 (08:34→08:43)
[2017-02-05] MEDS: COLACE PO SCH (08:34)
[2017-02-05] MEDS ORDERED: SYNTHROID PO SCH (09:00)
[2017-02-05] MEDS ORDERED: LASIX PO SCH (09:00)
[2017-02-05] MEDS ORDERED: PROTONIX PO SCH (09:00)
[2017-02-05] MEDS ORDERED: DECADRON IV ONE (09:00)
[2017-02-05] MEDS ORDERED: GLUCOTROL PO SCH (09:00)
[2017-02-05] MEDS ORDERED: HYDROCHLOROTHIAZIDE PO SCH (09:00)
[2017-02-05] MEDS: LYRICA PO SCH (09:00)
--- NOTE | 2017-02-05 17:10 | DISCHARGE SUMMARY ---
ADMISSION DATE: 02/04/2017 DISCHARGE DATE: 02/05/2017 DISCHARGE DIAGNOSIS: Right knee degenerative joint disease status post right total knee. DISCHARGE MEDICATIONS: See discharge medication list. DISPOSITION: The patient is discharged home with home health. DISCHARGE INSTRUCTIONS: Instructions for total knee arthroplasty protocol. Instructed to return to see Dr. Bejarano next . HOSPITAL COURSE: On the day of admission, patient underwent a right total knee arthroplasty. The postoperative course was unremarkable. At discharge, she is afebrile, tolerating a regular diet. Her wound is clean, dry, and intact without sign of infection. Her hemoglobin is 10.1, hematocrit is 32.7. She had 50 mL of drainage from her Hemovac. She did not ambulate with physical therapy yesterday, but she did not stand up and we are instructing her to be discharged today after she works with physical therapy this morning. She is discharged home with home health in stable condition with instructions to follow up as described above. Dictated by NUNO Mike for Dallin Bejarano MD cc: NUNO Mike MD
== END 2017-02-05 15:23 | disposition home health service (06) ==
LOC: SURHOLD 08:30 → 4N 11:28
PROVIDERS: ADMIT Orthopaedic Surgery; ATTEND Orthopaedic Surgery

== ENCOUNTER 2017-02-08 10:20 | Inpatient (IN) ==
[2017-02-08] MEDS ORDERED: D50W SYRINGE IV ONE ×2 (10:48→12:58)
[2017-02-08] MEDS ORDERED: D5 NS 1,000 ML IV ONE ×2 (10:48→15:06)
[2017-02-08 11:10] LABS: MANUAL DIFF NEEDED? NO
[2017-02-08 11:13] LABS: BASO% 0.1 % (0.0-0.8); EOS# 0.09 X1000 (0.0-0.7); EOS% 1.3 % (0.0-10.0); HEMATOCRIT 29.7 % (37.0-47.0); HEMOGLOBIN 9.7 g/dL (12.0-16.0); IMM GRAN# 0.02 X1000 (0.0-0.04); IMM GRAN% 0.3 % (0.0-0.5); LYMPH# 1.45 X1000 (1.2-3.4); LYMPH% 20.3 % (20.5-51.1); MCH 29.4 PG (27-31); MCHC 32.7 g/dL (33-37); MONO# 0.53 X1000 (0.11-0.59); MONO% 7.4 % (1.7-9.3); MPV 10.2 FL (7.4-10.4); NEUT% 70.6 % (42.2-75.2); PLT 202 X1000 (130-400)
[2017-02-08 12:05] LABS: CALCIUM 8.9 mg/dL (8.8-10.2); POTASSIUM 4.6 mmol/L (3.5-5.1)
--- NOTE | 2017-02-08 12:48 | PROVIDER DOCUMENTATION ---
This chart was entered by Alison Castillo Scribe, acting as scribe for Celso Conley MD. HPI-General Adult - General Chief Complaint: Low Blood Sugar Stated Complaint: HEART RATE LOW,ASTHMA Time Seen by Provider: 02/08/17 10:30 Source: patient, family, RN/MD (RN) Allergies/Adverse Reactions: Patient Allergies Allergy/AdvReac Type Severity Reaction Status Date / Time No Known Allergies Allergy Verified 10/21/16 22:01 Home Medications: Home Medication List Medication Instructions Recorded Confirmed Last Taken Type Atenolol 50 mg PO DAILY 10/21/16 02/04/17 02/04/17 07:00 History Furosemide [Lasix] 40 mg PO DAILY 10/21/16 02/04/17 02/03/17 10:30 History Gabapentin 300 mg PO TID 10/21/16 02/04/17 02/04/17 07:00 History Glipizide 10 mg PO DAILY 10/21/16 02/04/17 02/04/17 07:00 History Hydrochlorothiazide 25 mg PO DAILY 10/21/16 02/04/17 02/04/17 07:00 History Levothyroxine [Synthroid] 150 microgm PO DAILY 10/21/16 02/04/17 02/04/17 07:00 History Metformin [Glucophage] 1,000 mg PO BID CC 10/21/16 02/04/17 02/03/17 20:00 History Nortriptyline HCl [Pamelor] 25 mg PO QPM 10/21/16 02/04/17 02/03/17 23:00 History Pantoprazole [Protonix] 40 mg PO DAILY 10/21/16 02/04/17 02/04/17 07:00 History Albuterol Sulfate Inhaler 2 puff INH Q6H PRN PRN 02/01/17 02/04/17 02/04/17 07: 00 History [Ventolin Hfa] Sulfamethoxazole/Trimethoprim 1 each PO BID 02/01/17 02/04/17 02/03/17 23:00 History [Bactrim Ds Tablet] Acetaminophen [Tylenol] 1,000 mg PO Q6H tablet 02/05/17 Unknown Rx Celecoxib [Celebrex] 200 mg PO BID #60 capsule 02/05/17 Unknown Rx Docusate Sodium [Colace] 100 mg PO BID capsule 02/05/17 Unknown Rx Oxycodone I.r. [Oxy Ir] 5 - 10 mg PO Q3H PRN PRN #60 02/05/17 Unknown Rx capsule Rivaroxaban [Xarelto] 10 mg PO Q24H #14 tablet 02/05/17 Unknown Rx Tramadol [Ultram] 100 mg PO Q6H #120 tablet 02/05/17 Unknown Rx - History of Present Illness -Gen Adult Nature of Presenting Problems: Pt is 61 y/o F presents to the ED with low blood sugar. RN states Pt's could not wake Pt this am at 0530. Pt's states blood sugar was 30 prior to EMS arrival. RN states Pt's called EMS and EMS gave glucose and Pt became responsive and refused to go to the hospital. RN states Pt ate breakfast this am and blood sugar was still 30. Pt states having total knee replacement Saturday and was d/c from hospital on Saturday. Pt denies pain. Location of Pain/Injury: reports: none Pain Radiation: reports: no radiation Quality of Pain: reports: none Onset/Duration: reports: this morning (0530) Timing: reports: still present Context/Activities at Onset: reports: light activity Modifying Factors: improves with: nothing Associated Symptoms: reports: denies symptoms Similar Symptoms Previously?: Yes Recently seen or treated by another doctor?: No - Diabetes Related Context Context: reports: low blood sugar (30) Review of Systems - Adult - REVIEW OF SYSTEMS - ADULT Constitutional: reports: no symptoms reported Eyes: reports: no symptoms reported Ears, Nose, Mouth & Throat: reports: no symptoms reported Cardiovascular: reports: no symptoms reported Respiratory: reports: no symptoms reported Gastrointestinal: reports: no symptoms reported Genitourinary: reports: no symptoms reported Musculoskeletal: reports: no symptoms reported Integumentary: reports: no symptoms reported Neurological: reports: no symptoms reported Psychiatric: reports: no symptoms reported Endocrine: reports: no symptoms reported Hematologic/Lymphatic: reports: no symptoms reported Allergic/Immunologic: reports: no symptoms reported All Other Systems: Reviewed and Negative Past History - Adult - PAST MEDICAL HISTORY-ADULT Review of Records: reports: Nursing Assessment Review, Medications Reviewed, Social history reviewed & non-contributory. Major Childhood Illnesses: reports: denies history Cardiovascular: reports: HTN Respiratory: reports: asthma Gastrointestinal: reports: GERD Obstetrical/Gynecological: reports: denies history Genitourinary: reports: denies history Musculoskeletal: reports: denies history Neurological: reports: denies history Endocrine/Immune: reports: Diabetes, thyroid disorder Other Conditions: reports: denies history - PRIOR SURGERIES/PROCEDURES Surgical/Procedure History: reports: appendectomy, , bowel surgery, joint replacement (total R knee) - IMMUNIZATION STATUS Childhood Immunizations: See Nurse Assessment Flu Vaccine: See Nurse Assessment - FAMILY HISTORY Family History: reviewed, not pertinent - SOCIAL HISTORY Smoking: quit greater than 1 year, cigarettes Substance Use: denies Living Situation: family Physical Exam-General - PHYSICAL EXAM-ADULT Initial Vital Signs Reviewed: Yes - CONSTITUTIONAL General Appearance: appears well, alert, no apparent distress, slow to respond - EYES Eyes: PERRL/EOMI, pink conjunctivae - HEAD, EARS, NOSE, MOUTH & THROAT HENMT: normocephalic/atraumatic, moist mucous membranes, normal ENT inspection - NECK Neck: non-tender, full range of motion, supple, normal inspection - RESPIRATORY Respiratory: chest non-tender, lungs clear, normal breath sounds - CARDIOVASCULAR Cardiovascular: normal peripheral pulses, regular rate, rhythm - GASTROINTESTINAL (ABDOMEN) Abdominal Exam: normal bowel sounds, non tender, soft - LYMPHATIC Lymphatic: no adenopathy - MUSCULOSKELETAL Back Exam: normal inspection, no CVA tenderness, no vertebral tenderness Extremity: normal range of motion, tenderness (R knee) - SKIN Integumentary: ecchymosis (R knee), tenderness (R knee), other (well healing incision site to R knee) - NEUROLOGIC Neurologic: grossly normal - PSYCHIATRIC Psych/Mental Status: normal mood/affect, oriented x 3 Progress - PLAN OF CARE/RESULTS Progress/Plan/Lab Results: Vital Signs - 8 hr 02/08/17 10:23 Temperature 98.1 F Pulse Rate 56 L Respiratory Rate 20 Blood Pressure 146/60 O2 Sat by Pulse Oximetry 93 L Orders Category Date Time Status BMP [BASIC METABOLIC PANEL] [CHEM] Stat Lab 02/08/17 10:48 Uncollected CBC WITH ELECTRONIC DIFF [HEME] Stat Lab 02/08/17 10:48 Uncollected Dextrose 5%-0.9% NaCl Inj [D5 Ns] 1,000 ml Med 02/08/17 10:48 Active IV 50 mls/hr Dextrose 50% Syringe [D50w Syringe] Med 02/08/17 10:48 Discontinued 50 ml IV NOW ONE 1129 Improved mentation. Discussed meds, outpatient treatment. Result Diagrams: 02/08/17 10:51 02/08/17 10:51 - CONSULTS/PCP/HOSPITALIST Notification #1 *Consult/PCP/Hospitalist*: davidson Time Discussed: 12:46 Reason/Comments: Heidi Consult Disposition: Admit Departure - Departure Date of Disposition Decision: 02/08/17 Time of Disposition Decision: 12:47 DIAGNOSIS: Hypoglycemia associated with diabetes Acute renal failure Qualifiers: Acute renal failure type: unspecified Qualified Code(s): N17.9 - Acute kidney failure, unspecified Disposition: ADMITTED INPATIENT 09 Certified Medical Emergency: Emergent Condition: Stable Referrals and Follow-Ups: Ann Elizalde MD [Primary Care Provider] - - Critical Care Note This patient required my direct & personal management of CC.: No This chart was documented by the indicated scribe, (Alison Castillo Scribe) and accurately reflects the services I performed and decisions made by me, Celso Conley MD, as attested by the provider's signature.
[2017-02-08 12:59] LABS: URINE CULTURE NEEDED? NO; URINE MICRO REVIEW NEEDED? NO; URINE SOURCE CLEAN CATCH
[2017-02-08 13:02] LABS: BILIRUBIN URINE NEGATIVE (NEGATIVE); BLOOD URINE NEGATIVE (NEGATIVE); COLOR YELLOW; GLUCOSE URINE NEGATIVE (NEGATIVE); LEUKOCYTES URINE NEGATIVE (NEGATIVE); NITRITE URINE NEGATIVE (NEGATIVE); PROTEIN URINE TRACE mg/dL (NEGATIVE); SP GRAVITY URINE 1.016; TURBIDITY URINE CLEAR (CLEAR); UR EPITHELIAL CELLS <10 /HPF (<10); URINE BACTERIA NEGATIVE /HPF; URINE RBC <10 /HPF (<10); URINE WBC <10 /HPF (<10); UROBILINOGEN URINE NORMAL (NORMAL)
--- NOTE | 2017-02-08 13:53 | HISTORY AND PHYSICAL ---
HISTORY OF PRESENT ILLNESS: Ms. Nuno is a 61-year-old who recently had a right total knee arthroplasty and this morning they noticed she was very lethargic and poorly responsive. They called the paramedics, who found her blood sugar was 30 and gave her a little bit of D50. Sugar still remains low. She is waking up and doing better, but blood sugar is still running low and is still pretty lethargic. No focal neurologic deficits appreciated. No fever or chills. PAST MEDICAL HISTORY: 1. Diabetes mellitus, type 2. 2. Hypertension. 3. Hypothyroidism. PAST SURGICAL HISTORY: She has had section, appendectomy, and a right total knee arthroplasty. ALLERGIES: None known. SOCIAL HISTORY: She does not smoke or drink alcohol. . is at the bedside. FAMILY HISTORY: Notable for diabetes. REVIEW OF SYSTEMS: General: No weight gain or loss. No fever or chills. HEENT: Unremarkable. Respiratory: No increased work of breathing or dyspnea. Cardiovascular: No chest pain or tachy palpitation. DIAGNOSTIC STUDIES: On review of some studies, I noted she has had renal ultrasound done in October and it was unremarkable. She had a head CT done in 10/23/2016 and it was negative. She had an echocardiogram done on 10/26/2016, essentially normal left ventricular systolic function, questionable hypokinesis of inferior wall, no valvular dysfunction. PHYSICAL EXAMINATION: VITAL SIGNS: In the emergency room, afebrile. Temperature 98.1 degrees, pulse 56, respirations 20, blood pressure 146/60, and O2 saturation 93%. Weight 245 pounds. HEENT: Pupils are equal, round. LUNGS: Clear in all lung collins. CARDIOVASCULAR: Regular rhythm and rate, without murmur or S3. ABDOMEN: Soft, nontender, and nondistended. Positive bowel sounds. EXTREMITIES/INTEGUMENTARY: She has a good deal of ecchymoses around the right leg. Anterior incision unremarkable. No sign of infection. LABORATORY: White blood cell count 7150, hematocrit 29, platelet count 202,000, MCV of 90. Sodium 130, potassium 4.6, chloride 96, bicarbonate 21, BUN 68, creatinine 4.0, and blood sugar of 25. Urinalysis unremarkable. HOME MEDICATIONS: She is taking Tylenol 1000 mg p.o. q.6 hours, Ventolin inhaler 2 puffs q.6 hours, atenolol 50 mg daily, Celebrex 200 mg p.o. b.i.d., Colace 100 mg b.i.d., Lasix 40 mg daily, gabapentin 300 mg t.i.d., glipizide 10 mg a day, hydrochlorothiazide 25 mg a day, Synthroid 150 mcg daily, Glucophage 1000 mg p.o. b.i.d., Pamelor 25 mg q.p.m., oxycodone IR 5-10 mg p.o. q.3 hours p.r.n., Protonix 40 mg daily, Xarelto 10 mg a day, Bactrim Double Strength 1 b.i.d., tramadol or Ultram 100 mg p.o. q.6 hours. ASSESSMENT AND PLAN: 1. Hypoglycemia. We are going to hold the metformin. We are going to hold glipizide. Will put her on pattern sugars and then check sliding scale. I think we are going to put her on D5 normal saline and run it in at 85 mL an hour at this point. 2. Acute kidney injury. Suspect maybe this is volume depletion and so we will give her some fluid. She has a previous echocardiogram that shows good left ventricular function. We need to stop her Celebrex and will stop her Bactrim, as well. 3. Lethargy, probably multifactorial, but I think we need to reduce her pain medicine down to 50 mg of Ultram, which she could have q.6 hours p.r.n. pain. 4. Recent right total knee arthroplasty. She is on Xarelto. Will continue it at 10 mg daily. 5. We are going to stop the Lasix. She has normal left ventricular systolic function and we are trying to improve her renal function. 6. History of hypothyroidism. She is on Synthroid 150 mcg daily. We will check her T4 and TSH, B12 and folate. We will follow her electrolytes closely. I do not see any sign of infection at this point. I suspect it may be another 24 hours before the effects of glipizide wear off. cc: Martínez Bird MD
[2017-02-08] MEDS ORDERED: VENTOLIN HFA INH PRN (15:06)
[2017-02-08] MEDS ORDERED: ZOFRAN IV PRN (15:06)
[2017-02-08] MEDS ORDERED: D50W SYRINGE IV PRN (15:06)
[2017-02-08] MEDS ORDERED: XARELTO PO SCH (15:06)
[2017-02-08] MEDS: ULTRAM PO SCH ×2 (15:56→20:33)
[2017-02-08] MEDS: NEURONTIN PO SCH (17:39)
[2017-02-08] MEDS: PAMELOR PO SCH (20:33)
[2017-02-08] MEDS: COLACE PO SCH (20:33)
[2017-02-09] MEDS: ULTRAM PO SCH ×4 (03:06→21:36)
[2017-02-09] MEDS: SYNTHROID PO SCH (06:16)
[2017-02-09] MEDS: PRILOSEC PO SCH (06:16)
[2017-02-09 06:43] LABS: MANUAL DIFF NEEDED? NO
[2017-02-09 06:59] LABS: BASO% 0.5 % (0.0-0.8); EOS% 5.4 % (0.0-10.0); HEMATOCRIT 26.4 % (37.0-47.0); HEMOGLOBIN 8.2 g/dL (12.0-16.0); INR 1.02; LYMPH# 0.94 X1000 (1.2-3.4); LYMPH% 17.1 % (20.5-51.1); MCH 28.5 PG (27-31); MCHC 31.1 g/dL (33-37); MCV 91.7 FL (81-99); MONO# 0.39 X1000 (0.11-0.59); MONO% 7.1 % (1.7-9.3); MPV 10.2 FL (7.4-10.4); NEUT% 69.9 % (42.2-75.2); PLT 186 X1000 (130-400); PROTIME 10.7 Seconds (9.2-11.7); PTT 31.7 Seconds (22.0-36.0); RBC 2.88 XMIL (4.2-5.4)
[2017-02-09 07:18] LABS: AGAP 11; ALBUMIN 3.7 g/dL (3.5-5.0); ALKALINE PHOSPHATASE 76 U/L (32-104); BUN 61 mg/dL (8-22); CALCIUM 8.6 mg/dL (8.8-10.2); CHLORIDE 95 mmol/L (98-107); COSMO 287; GOT 23 U/L (10-30); GPT < 5 U/L (10-36); MAGNESIUM 1.8 mg/dL (1.5-2.7); POTASSIUM 4.9 mmol/L (3.5-5.1); SODIUM 134 mmol/L (136-145); TCO2 28 mmol/L (25-35); TOTAL BILIRUBIN 0.32 mg/dL (0.20-1.00); TOTAL PROTEIN 6.6 g/dL (6.3-8.3)
[2017-02-09] MEDS ORDERED: PROTONIX PO SCH (09:00)
[2017-02-09] MEDS: COLACE PO SCH ×2 (09:39→21:36)
[2017-02-09] MEDS: NEURONTIN PO SCH ×3 (09:39→17:08)
--- NOTE | 2017-02-09 11:18 | DISCHARGE SUMMARY ---
ADMISSION DATE: 02/08/2017 DISCHARGE DATE: 02/09/2017 She is a patient of Dr. Elizalde. A 61-year-old had a right total knee arthroplasty last week and this morning she felt lethargic, poorly responsive. Called paramedics. Found her blood sugars in the 50s. They gave her some D50 but continued to have low sugars. She was on metformin but also on glipizide. So she showed improvement and less confusion, less lethargy and we followed pattern sugars. Note that her hematocrit was stable at 29, hemoglobin 9, blood sugars were 35, 74, 73 and then 150 to 128. She was eating and felt much better. [place] she could go home the following morning, on 02/09/2017. I will have her hold the metformin, hold her glipizide for at least a couple of weeks. Follow up with Dr. Elizalde. We stopped her Bactrim and continued her other medication so she can take her Ultram which I cut down to 50 mg maybe q.6 hours p.r.n., stopped her 100 mg Ultram. She is on the Xarelto 10 mg a day. Protonix 40 mg a day. We will stop her oxycodone and just have her use the Ultram for pain. She is on nortriptyline 25 mg at bedtime. She will hold Glucophage, Synthroid 150 mcg daily. She can continue the hydrochlorothiazide for blood pressure. Stop the glipizide. She is on gabapentin 300 mg t.i.d. She getting Lasix 40 mg a day. Colace 100 mg b.i.d. Serum creatinine was 3.1. It was 4.0 on admission and I suspect most of this is prerenal. So I want her to hold her Lasix, hold her hydrochlorothiazide, continue to drink plenty of fluids in anticipation this continued to improve. DISCHARGE MEDICATIONS: Will be as follows. She will be on Ultram 50 mg p.o. q.6 hours p.r.n. Xarelto 10 mg p.o. daily. Prilosec 40 mg a day. Pamelor 25 mg a day. Synthroid 150 mcg a day. Neurontin 300 mg t.i.d. Colace 100 mg b.i.d. Ventolin inhalers as needed. cc: Martínez Bird MD
[2017-02-09 12:39] LABS: ALLEN TEST YES; BE 4.9 mmoll (-3.0-3.0); BLOOD TYPE ARTERIAL; DRAW SITE R RADIAL; O2(CT) 7.9 mL/dL (15.0-23.0); SAMPLE BLOOD; SAO2 64.4 % (95.0-100.0); pH(98.6) 7.38 (7.35-7.45)
[2017-02-09 12:41] LABS: PCO2(98.6) 52 mmHg (35-45); PO2(98.6) 30 mmHg (60-100)
[2017-02-09 12:42] LABS: MODALITY ROOM AIR
--- NOTE | 2017-02-09 12:42 | Diag Imaging Result Doc PS360 ---
CHEST-2 VIEWS - 02/09/2017 INDICATION: decreased oxygen saturation TECHNIQUE: COMPARISON: 11/05/2016 FINDINGS: There is new significant pulmonary vascular congestion. There are small bilateral basilar infiltrates most likely in the lower lobes. There is significant cardiomegaly. No pneumothorax or pleural effusion. IMPRESSION: 1. Cardiomegaly. 2. Ill-defined bilateral basilar infiltrates, nonspecific, compatible with pneumonia or pulmonary edema. Electronically signed by Carlitos Perez 02/09/2017 12:39 PM
[2017-02-09] MEDS ORDERED: LOVENOX SUBQ SCH (13:45)
[2017-02-09] MEDS ORDERED: SALINE LOCK IV FLUID XX ONE (13:47)
[2017-02-09] MEDS ORDERED: ROCEPHIN 1 GM/NS 1 GM/50 ML IVPB IV SCH (14:00)
[2017-02-09] MEDS ORDERED: VANCOMYCIN IV PER PHARMACY MISC SCH (14:00)
[2017-02-09] MEDS: NS 1,000 ML IV SCH (15:12)
[2017-02-09] MEDS ORDERED: VANCOMYCIN 1.2 GM in NS 250 ML IV SCH (16:00)
[2017-02-09 16:52] LABS: HEMOGLOBIN A1C 5.7 % (4.8-6.0)
--- NOTE | 2017-02-09 16:56 | Diag Imaging Result Doc PS360 ---
LUNG SCAN / VQ - 02/09/2017 INDICATION: sob; hypoxia TECHNIQUE: 39.4 mCi of DTPA was used for inhalation. 6.2 mCi of MAA was used for perfusion. COMPARISON: Chest x-ray 02/09/2017 FINDINGS: There is normal localization pattern of the radiotracers. No evidence of perfusion defects. IMPRESSION: Negative exam. Electronically signed by Carlitos Perez 02/09/2017 4:53 PM
[2017-02-09] MEDS: DUONEB (A & A) INH SCH ×3 (18:06→23:18)
[2017-02-09] MEDS: MUCOMYST 20% INH SCH (19:17)
[2017-02-09] MEDS: PULMICORT INH SCH (19:18)
[2017-02-09] MEDS: PAMELOR PO SCH (21:36)
[2017-02-09] MEDS: TYLENOL PO PRN (22:05)
--- NOTE | 2017-02-09 22:10 | Extremity Venous Study ---
PROCEDURE NAME: Venous U/S Bilateral Legs - 02/09/2017 HARMONICA MAKER: Nito. REQUESTING PHYSICIAN: Heidi Isaacs. INDICATION: Shortness of breath 6 days postop right knee surgery. FINDINGS: All deep and superficial veins bilateral lower extremities visualized along their course. All veins compressible forward flow, no evidence intraluminal thrombus. SUMMARY: No deep or superficial venous thrombosis seen in bilateral lower extremities. cc: MD Heidi Conn CRNP
[2017-02-10] MEDS: ULTRAM PO SCH ×4 (03:11→21:51)
[2017-02-10] MEDS: DUONEB (A & A) INH SCH ×6 (03:30→23:14)
[2017-02-10 04:48] LABS: ALLEN TEST YES; BLOOD TYPE ARTERIAL; DRAW SITE R RADIAL; METHB 0.6 % (0.0-1.5); O2(CT) 10.4 mL/dL (15.0-23.0); PO2(98.6) 55 mmHg (60-100); SAMPLE BLOOD; SAO2 92.4 % (95.0-100.0); THB 8.3 g/dL (11.5-17.4); pH(98.6) 7.35 (7.35-7.45)
[2017-02-10 04:49] LABS: MODALITY CANNULA
[2017-02-10 04:50] LABS: PCO2(98.6) 63 mmHg (35-45)
[2017-02-10] MEDS: NS 1,000 ML IV SCH ×2 (06:03→16:35)
[2017-02-10] MEDS: TYLENOL PO PRN ×2 (06:03→15:40)
[2017-02-10] MEDS: PRILOSEC PO SCH (06:03)
[2017-02-10] MEDS: SYNTHROID PO SCH (06:04)
[2017-02-10 06:34] LABS: MANUAL DIFF NEEDED? NO
[2017-02-10 06:49] LABS: BASO% 0.4 % (0.0-0.8); EOS# 0.25 X1000 (0.0-0.7); EOS% 4.5 % (0.0-10.0); HEMATOCRIT 25.9 % (37.0-47.0); HEMOGLOBIN 7.9 g/dL (12.0-16.0); LYMPH# 1.09 X1000 (1.2-3.4); LYMPH% 19.7 % (20.5-51.1); MCH 28.7 PG (27-31); MCHC 30.5 g/dL (33-37); MCV 94.2 FL (81-99); MONO# 0.53 X1000 (0.11-0.59); MONO% 9.6 % (1.7-9.3); MPV 9.8 FL (7.4-10.4); NEUT% 65.8 % (42.2-75.2); PLT 196 X1000 (130-400); RBC 2.75 XMIL (4.2-5.4)
[2017-02-10 07:15] LABS: AGAP 11; ALBUMIN 3.6 g/dL (3.5-5.0); ALKALINE PHOSPHATASE 72 U/L (32-104); BUN 45 mg/dL (8-22); CHLORIDE 98 mmol/L (98-107); COSMO 293; GOT 15 U/L (10-30); GPT < 5 U/L (10-36); MAGNESIUM 1.6 mg/dL (1.5-2.7); POTASSIUM 4.2 mmol/L (3.5-5.1); SODIUM 139 mmol/L (136-145); TCO2 30 mmol/L (25-35); TOTAL BILIRUBIN 0.44 mg/dL (0.20-1.00); TOTAL PROTEIN 6.3 g/dL (6.3-8.3)
[2017-02-10] MEDS: MUCOMYST 20% INH SCH ×2 (08:08→19:10)
[2017-02-10] MEDS: PULMICORT INH SCH ×3 (08:09→19:50)
[2017-02-10] MEDS: NEURONTIN PO SCH ×4 (11:45→21:52)
[2017-02-10] MEDS: COLACE PO SCH ×2 (11:45→21:52)
--- NOTE | 2017-02-10 15:45 | PROGRESS NOTE ---
DATE: 02/10/2017 SUBJECTIVE: Ms. Nuno is feeling better. She did eat most of her breakfast. She is breathing better. She is talking about wanting to go home. OBJECTIVE: Vital signs: She remains afebrile, temp 98.2 degrees, pulse 87, respirations 20, blood pressure 133/54. HEENT: Pupils are equal. Lungs: Clear in all lung collins. Cardiovascular: Regular rhythm and rate without murmur or S3. Abdomen: Soft. Skin: Warm and dry. Intake and output: Urine output is 2300 mL. LAB: White count 5,540, hematocrit 25, platelet count 196,000. Renal functions have improved, creatinine 2.0. Sodium 139, potassium 4.2, chloride 98, BUN 45, creatinine 2.0. Blood sugar 174, 171, 202. V/Q scan done yesterday negative exam. Normal localization pattern of the radiotracer. No evidence of perfusion deficits. Noninvasive extremity study, no deep venous thrombosis in bilateral extremities. Chest x-ray from yesterday, ill-defined bilateral infiltrates with what looks like atelectasis. Her ABGs this morning, pH is 7.35, pCO2 63, PO2 of 55, O2 saturation 92%; that is on 32% FiO2. ASSESSMENT AND PLAN: 1. Presented with hypoglycemia and we held her metformin and glipizide. Sugars seem to have improved. 2. Acute kidney injury which is improving volume status. 3. Appeared to have bilateral atelectasis which I think is a possibility of poor ventilation and not doing some deep breathing. 4. Lethargy which I think is multifactorial. 5. Recent right total knee arthroplasty. This was concern that she had a DVT. I have put her on Lovenox. V/Q scan and noninvasives are negative. So I think we can stop the blood thinner. See if we can wean her off the O2. Renal function has improved. Hopefully she can go home. cc: Martínez Bird MD
--- NOTE | 2017-02-10 17:00 | Diag Imaging Result Doc PS360 ---
CHEST-2 VIEWS - 02/10/2017 INDICATION: hypoxia TECHNIQUE: COMPARISON: 02/09/2017 FINDINGS: Stable mild cardiomegaly. Stable patchy, mixed central and bibasilar infiltrates. No pneumothorax or pleural effusion. IMPRESSION: Stable cardiomegaly and nonspecific bibasilar infiltrates/edema. Electronically signed by Carlitos Perez 02/10/2017 4:58 PM
[2017-02-10] MEDS: PAMELOR PO SCH (21:51)
[2017-02-11] MEDS: DUONEB (A & A) INH SCH ×6 (03:24→22:10)
[2017-02-11] MEDS: ULTRAM PO SCH ×4 (03:32→21:21)
[2017-02-11] MEDS: NS 1,000 ML IV SCH (03:49)
[2017-02-11 04:30] LABS: ALLEN TEST YES; BE 8.5 mmoll (-3.0-3.0); BLOOD TYPE ARTERIAL; DRAW SITE R RADIAL; METHB 0.9 % (0.0-1.5); O2(CT) 10.4 mL/dL (15.0-23.0); SAMPLE BLOOD; SAO2 91.4 % (95.0-100.0); THB 8.4 g/dL (11.5-17.4); pH(98.6) 7.41 (7.35-7.45)
[2017-02-11 04:32] LABS: PO2(98.6) 49 mmHg (60-100)
--- NOTE | 2017-02-11 06:26 | EKG Report ---
Test Performed on : 02/09/2017 06:36:24 AM Test Reason : chest pain Blood Pressure : / mmHG Vent. Rate : 062 BPM Atrial Rate : 062 BPM P-R Int : 226 ms QRS Dur : 152 ms QT Int : 440 ms P-R-T Axes : 030 -57 042 degrees QTc Int : 446 ms Sinus rhythm. with 1st degree AV block. Right bundle branch block Left anterior fascicular block Bifascicular block Abnormal ECG When compared with ECG of 30-JAN-2017 12:38, Borderline criteria for Lateral infarct are no longer present Confirmed by Juan Manuel DAVIS, Fabio Navarro ([id number]) on 02/12/2017 2:14:59 PM
[2017-02-11] MEDS: PRILOSEC PO SCH (07:32)
[2017-02-11] MEDS: SYNTHROID PO SCH (07:33)
[2017-02-11] MEDS: PULMICORT INH SCH ×2 (07:59→19:23)
[2017-02-11] MEDS: MUCOMYST 20% INH SCH ×2 (07:59→19:23)
[2017-02-11] MEDS: NEURONTIN PO SCH ×3 (11:15→21:30)
[2017-02-11] MEDS: COLACE PO SCH ×2 (11:15→21:21)
--- NOTE | 2017-02-11 12:17 | Diag Imaging Result Doc PS360 ---
EXAM: CHEST-2 VIEWS HISTORY: Shortness of breath TECHNIQUE: Two views COMMENT: There is what appears to be interstitial pulmonary edema with some scattered subsegmental atelectasis. This is particularly notable in the lower lobes and lingula. Compared to the previous study of 02/10/2017 there has been no significant change. The left lung is definitely worse than on 02/09/2017 however. IMPRESSION: Pulmonary edema and bilateral subsegmental atelectasis. Electronically signed by Sivakumar Chamberlain 02/11/2017 12:15 PM
--- NOTE | 2017-02-11 13:12 | EKG Report ---
Test Performed on : 02/11/2017 12:38:08 PM Test Reason : Shortness of breath Blood Pressure : / mmHG Vent. Rate : 073 BPM Atrial Rate : 073 BPM P-R Int : 198 ms QRS Dur : 140 ms QT Int : 398 ms P-R-T Axes : 052 -57 050 degrees QTc Int : 438 ms Normal sinus rhythm. Right bundle branch block Left anterior fascicular block Bifascicular block Minimal voltage criteria for LVH, may be normal variant Abnormal ECG When compared with ECG of 09-FEB-2017 06:36, (Unconfirmed) No significant change was found Confirmed by Juan Manuel DAVIS, Fabio Navarro ([id number]) on 02/12/2017 2:16:35 PM
[2017-02-11] MEDS ORDERED: LASIX IV ONE ×2 (13:27→19:28)
--- NOTE | 2017-02-11 13:51 | PROGRESS NOTE ---
DATE: 02/11/2017 SUBJECTIVE: She states that she feels better. She did feel a little short of breath this morning. Her O2 sats when they took the oxygen off and got her up were 85%. Remains afebrile. OBJECTIVE: Vital signs: Temperature 98.3 degrees, pulse 80, respirations 20, blood pressure 136/61. Neck: CVP less than 6 cm. Lungs: Clear in all lung collins. There are a little bit of crackles at the bases. Cardiovascular: Regular rhythm and rate without murmurs. Intake and output: Urine output is 1800 mL. LAB: From the reviewed. CBC: White blood cell count 5,540, hematocrit 25, platelet count is 196,000. Blood sugar is 199, 191, and 206. Blood gas from this morning, pH was 7.41, pCO2 54, PO2 was 49, oxyhemoglobin 88%. Chest x-ray today, pulmonary edema, bilateral submental atelectasis. ASSESSMENT AND PLAN: 1. Hypoxemia. Appears to have bilateral atelectasis and a little bit of pulmonary edema. I am going to check an echocardiogram and look at left ventricular function. I am going to see if we can diurese a little bit of this fluid off. 2. Acute kidney injury. This seems to be improving. We need to check again. Her creatinine has come down to 2.0 so it has improved. Will ask pulmonary to help and see if we need to get some pulmonary function tests. 3. Status post right knee total arthroplasty. We did noninvasive and V/Q scan does not have any blood clot. We will check an echocardiogram. I am going to give her some Lasix today. Follow her renal function. Will check some pulmonary function tests. Ask pulmonary to help. cc: Martínez Bird MD
[2017-02-11 14:43] LABS: MODALITY CANNULA
[2017-02-11 15:47] LABS: CALCIUM 8.8 mg/dL (8.8-10.2); MAGNESIUM 1.2 mg/dL (1.5-2.7); POTASSIUM 4.1 mmol/L (3.5-5.1)
[2017-02-11] MEDS ORDERED: SOLU-MEDROL IV ONE (19:25)
[2017-02-11] MEDS: ADVAIR 500/50 DISKUS INH SCH (20:00)
[2017-02-11] MEDS: PAMELOR PO SCH (21:21)
[2017-02-11] MEDS: LOVENOX SUBQ SCH (21:21)
[2017-02-12] MEDS: ULTRAM PO SCH ×4 (03:15→21:02)
[2017-02-12] MEDS: DUONEB (A & A) INH SCH ×6 (04:03→23:13)
--- NOTE | 2017-02-12 04:41 | CONSULTATION ---
DATE OF CONSULTATION: 02/11/2017 REQUESTING PHYSICIAN: Dr. Bird. REASON FOR CONSULTATION: Help evaluate and treat. HISTORY OF PRESENT ILLNESS: Ms. Nuno is a 61-year-old white female with a [id number] history for tobacco, history of asthma since the age of 2 by her report, with multiple different environmental allergens, morbid obesity, with a BMI approaching 50, diabetes mellitus, who was evaluated by this practitioner in October of this year, when she was diagnosed with a nonreducible umbilical hernia. The patient had an open repair of a strangulated hernia, which was closed with mesh, but she subsequently had a SIRS response, and had the mesh removed. She has a transient lung injury, but was successfully extubated. The patient improved, and was discharged home. She underwent a right total knee arthroplasty by Dr. Bejarano on 02/05/2017, and returned to the emergency room 3 days later with lethargy and hypoglycemia, along with acute renal failure. Her medications were held, and she received volume resuscitation, with improvement. She remains on oxygen and remain short breath with any exertion. Dopplers of the lower extremities were negative. She underwent a V/Q scan, which revealed no evidence of pulmonary emboli. PAST MEDICAL HISTORY/PROBLEM LIST: 1. Asthma, as per above. 2. Significant tobacco history, as per above. 3. Morbid obesity. 4. Type 2 diabetes mellitus. 5. Hypertension. 6. Hypothyroidism. 7. Strangulated ventral hernia, as per above. 8. Status post . 9. Status post appendectomy. SOCIAL HISTORY: Nonsmoker since 2000. Denies alcohol use. FAMILY HISTORY: Noncontributory. PHYSICAL EXAMINATION: General: Reveals an obese white female, currently receiving a nebulizer treatment. She is in no distress. Vital Signs: Blood pressure 153/74, heart rate 88, respiration rate 20, oxygen saturation 99% on Venturi mask. HEENT: Pupils are equal and reactive. Oropharynx is clear. Neck: Supple. Chest: Expiratory wheezing bilaterally. Cardiac: Regular rate, normal S1, normal S2. Abdomen: Obese and soft. Extremities: Postoperative bruising in the right knee. LABORATORY STUDIES: Eosinophilic count has been reviewed. She had an elevated eosinophilic count in October of this year at 10.9%. Current eosinophilic count is 4.5%. Chest x-ray reveals atelectasis with mild pulmonary edema. Arterial blood gas today on oxygen reveals pH 7.41, pCO2 of 54, PO2 of 49. Chemistries: Sodium 142, potassium 4.1, chloride 101, bicarbonate 30, BUN 22, creatinine 1.2. White blood count 5.54, hemoglobin 7.9, platelet count 196,000. IMPRESSION: A 61-year-old with asthma/chronic obstructive pulmonary disease exacerbation and active bronchospasm. Mild pulmonary edema, with probable component of acute cor pulmonale. Chronic hypercapnic respiratory failure. Acute hypoxemic respiratory failure. I suspect her respiratory failure is multifactorial, and related to underlying asthma/chronic obstructive pulmonary disease, plus morbid obesity, plus component of pulmonary edema/fluid overload. RECOMMENDATIONS: 1. Diuretics, as you are doing. 2. Single dose of Solu-Medrol for bronchospasm. I will initiate Advair. Would like to limit Solu-Medrol, given recent surgery and diabetes. 3. Discontinue Mucomyst. This can worsen bronchospasm in asthmatics. 4. Initiate deep venous thrombosis prophylaxis given recent surgery. 5. Evaluate oxygen at the time of discharge. She may need oxygen at discharge, given the above factors. cc: Kamran Pedro MD
[2017-02-12] MEDS: SYNTHROID PO SCH (06:10)
[2017-02-12] MEDS: PRILOSEC PO SCH (06:10)
--- NOTE | 2017-02-12 07:16 | Diag Imaging Result Doc PS360 ---
CHEST-PORTABLE - 02/12/2017 INDICATION: abnormal exam TECHNIQUE: COMPARISON: 02/11/2017 FINDINGS: Stable cardiomegaly. There is significant worsening pulmonary vascular congestion and diffuse bilateral interstitial infiltrates/edema. No pneumothorax or large effusion. IMPRESSION: Worsening pulmonary vascular congestion and pulmonary edema. Electronically signed by Carlitos Perez 02/12/2017 7:14 AM
[2017-02-12] MEDS: ADVAIR 500/50 DISKUS INH SCH ×2 (07:59→20:07)
[2017-02-12 08:12] LABS: PCO2(98.6) 54 mmHg (35-45)
[2017-02-12 08:15] LABS: AGAP 10; ALBUMIN 3.5 g/dL (3.5-5.0); ALKALINE PHOSPHATASE 72 U/L (32-104); BUN 20 mg/dL (8-22); CHLORIDE 98 mmol/L (98-107); COSMO 292; GOT 9 U/L (10-30); GPT < 5 U/L (10-36); MAGNESIUM 1.1 mg/dL (1.5-2.7); SODIUM 142 mmol/L (136-145); TCO2 34 mmol/L (25-35); TOTAL BILIRUBIN 0.54 mg/dL (0.20-1.00); TOTAL PROTEIN 6.7 g/dL (6.3-8.3)
[2017-02-12] MEDS: COLACE PO SCH ×3 (10:30→21:03)
[2017-02-12] MEDS: NEURONTIN PO SCH ×3 (10:30→18:10)
--- NOTE | 2017-02-12 12:41 | ECHO REPORT ---
ORDER DATE: 02/11/2017 ECHOCARDIOGRAPHIC MEASUREMENTS: 1. Interventricular septum 1.1. 2. Left ventricular posterior wall 1.1. 3. Diastolic diameter 5.2. 4. Left atrium 3.9. 5. Aorta 2.9. SUMMARY OF 2-DIMENSIONAL IMAGIN. Aortic valve leaflets were trileaflet, sclerosed. Pulmonic valve was normal. Tricuspid valve was normal. Technically suboptimal study. Poor apical windows. Normal left ventricular cavity size. Estimated ejection fraction of 60-65%. 2. There was trace mitral regurgitation. Mild tricuspid regurgitation. Peak velocity across the tricuspid valve was 3.7 m/sec. Pulmonary artery systolic pressure of 64 mmHg. There is pulmonary arterial hypertension. 3. Peak velocity across the aortic valve was 2.2 m/sec. There is aortic sclerosis. There is no aortic stenosis. There is no aortic regurgitation. There is no pericardial effusion or obvious intracardiac mass or thrombus seen. cc: MD Martínez Nowak MD
--- NOTE | 2017-02-12 16:50 | PROGRESS NOTE ---
DATE: 02/12/2017 SUBJECTIVE: Ms. Nuno is feeling much better, much more comfortable, breathing comfortably, moving air well. She remains afebrile. OBJECTIVE: Vital signs: Temperature 97.8 degrees, pulse 90, respirations 18, blood pressure 127/53. Lungs: Clear in all lung collins. Cardiovascular exam: Regular rhythm and rate without murmur or S3. Abdomen: Soft. Skin: Warm and dry. : Good urine output. Urine output yesterday was almost 2 L. ASSESSMENT AND PLAN: Appreciate Dr. Borden help. It appears that she has asthma, chronic/chronic obstructive pulmonary disease exacerbation, active bronchospasm, mild pulmonary edema and probable component of acute cor pulmonale, chronic hypercapnic respiratory failure, acute hypoxemic respiratory failure, suspect multifactorial related underlying asthma, chronic/chronic obstructive pulmonary disease plus morbid obesity plus component of pulmonary edema. So, she seems to have responded to diuresis well. We have done a lung ventilation scan and it is negative. Clinically she is much better. She has been treated with a dose of Solu-Medrol and continues the bronchodilators, getting Mucomyst. Note, she was also on her deep vein thrombosis prophylaxis again. Continue present measures, doing better, hopefully can wean her off the oxygen and she can go home soon. She got 60 mg of Lasix at 1 o'clock; he gave her another 80 of Lasix at 7 o'clock and dose of 60 mg of methylprednisone. cc: Martínez Bird MD
[2017-02-12] MEDS: PAMELOR PO SCH (21:02)
[2017-02-12] MEDS: LOVENOX SUBQ SCH (21:02)
[2017-02-13] MEDS: DUONEB (A & A) INH SCH ×6 (03:16→23:06)
[2017-02-13] MEDS: ULTRAM PO SCH ×5 (04:27→22:16)
[2017-02-13] MEDS: PRILOSEC PO SCH (06:03)
[2017-02-13] MEDS: SYNTHROID PO SCH (06:03)
[2017-02-13] MEDS: ADVAIR 500/50 DISKUS INH SCH ×2 (07:29→19:50)
[2017-02-13] MEDS: NEURONTIN PO SCH ×3 (09:23→17:15)
[2017-02-13] MEDS: COLACE PO SCH (09:24)
[2017-02-13] MEDS: TYLENOL PO PRN ×2 (09:38→16:00)
--- NOTE | 2017-02-13 17:24 | PROGRESS NOTE ---
DATE: 02/13/2017 SUBJECTIVE: Today Ms. Nuno referred actually to be doing a whole lot better and we are getting ready for her to be discharged. However, her oxygen level dropped to 70 off the oxygen supplementation and when we put her up we have to crank it up to 5 for her to maintain adequate saturation in the 90s. OBJECTIVE: Vital signs: Blood pressure is 144/59, pulse of 68, respirations 18, temperature 97.7 degrees. General: Ms. Nuno is a 61-year-old female. She is in bed. Does not seem to be in any remarkable distress. HEENT: Mucosa is pink and moist. Anicteric. Acyanotic. Neck: Supple. Chest: Good air entry bilateral. I did not appreciate any crepitations or rhonchi. No wheezing. Cardiovascular: Regular rate and rhythm. Abdomen: Soft. Extremities: No pedal edema. LACROSSE COACH: Patient is alert and oriented. LABORATORY DATA: Glucose is 212. O2 saturation is about 96. ASSESSMENT: 1. Acute bronchospasm, likely due to underlying chronic obstructive pulmonary disease exacerbation versus asthma. 2. Acute on chronic hypercarbic respiratory failure. 3. Acute hypoxemic respiratory failure. 4. Morbid obesity with body mass index more than 70. 5. Pulmonary hypertension with pulmonary artery systolic pressure of 64, likely due to underlying lung disease. 6. Suspected sleep apnea. PLAN: So in general, I think Ms. Nnuo is doing a lot better. However, her oxygen level dropped significantly when we were ready to discharge her. We will put her back on the 5 L of oxygen and titrate it low. Hopefully it is below 3 by tomorrow so we can discharge her safely. cc: Barrington Benson MD
[2017-02-13] MEDS ORDERED: LASIX IV ONE (21:23)
[2017-02-13] MEDS: PAMELOR PO SCH (22:17)
[2017-02-13] MEDS: LOVENOX SUBQ SCH (22:17)
[2017-02-14] MEDS: DUONEB (A & A) INH SCH ×4 (03:22→15:26)
[2017-02-14] MEDS: COLACE PO SCH ×2 (05:37→09:22)
[2017-02-14] MEDS: ULTRAM PO SCH ×3 (05:38→16:55)
[2017-02-14] MEDS ORDERED: LASIX IV ONE (05:55)
[2017-02-14] MEDS: SYNTHROID PO SCH (06:47)
[2017-02-14] MEDS: PRILOSEC PO SCH (06:48)
--- NOTE | 2017-02-14 07:20 | Diag Imaging Result Doc PS360 ---
CHEST-PORTABLE - 02/14/2017 INDICATION: dyspnea TECHNIQUE: COMPARISON: 02/05/1717 FINDINGS: Stable cardiomegaly and pulmonary vascular congestion. There is significant improvement in the interstitial edema in the lung bases. No new abnormalities. IMPRESSION: Improvement from prior. Electronically signed by Carlitos Perez 02/14/2017 7:18 AM
[2017-02-14 07:23] LABS: CALCIUM 8.9 mg/dL (8.8-10.2); POTASSIUM 3.7 mmol/L (3.5-5.1)
[2017-02-14] MEDS: ADVAIR 500/50 DISKUS INH SCH (08:00)
[2017-02-14 08:32] LABS: MANUAL DIFF NEEDED? NO
[2017-02-14 08:41] VITALS: BP 134/55
[2017-02-14 08:41] LABS: BASO% 0.5 % (0.0-0.8); EOS# 0.53 X1000 (0.0-0.7); EOS% 9.6 % (0.0-10.0); HEMATOCRIT 27.5 % (37.0-47.0); HEMOGLOBIN 8.1 g/dL (12.0-16.0); IMM GRAN# 0.04 X1000 (0.0-0.04); IMM GRAN% 0.7 % (0.0-0.5); LYMPH# 2.25 X1000 (1.2-3.4); LYMPH% 40.6 % (20.5-51.1); MCH 28.7 PG (27-31); MCHC 29.5 g/dL (33-37); MCV 97.5 FL (81-99); MONO# 0.51 X1000 (0.11-0.59); MONO% 9.2 % (1.7-9.3); MPV 9.3 FL (7.4-10.4); NEUT% 39.4 % (42.2-75.2); PLT 275 X1000 (130-400); RBC 2.82 XMIL (4.2-5.4)
[2017-02-14] MEDS ORDERED: PRINIVIL PO SCH (09:15)
[2017-02-14] MEDS: NEURONTIN PO SCH ×3 (09:22→16:55)
[2017-02-14 09:56] LABS: IRON SATURATION 17 %; TIBC 269 ug/dL; TOTAL IRON 46 ug/dL (49-151); UNBOUND IRON 223 ug/dL (112-346)
[2017-02-14] MEDS ORDERED: LASIX IV SCH (18:00)
[2017-02-14] MEDS ORDERED: LASIX PO SCH (21:00)
--- NOTE | 2017-02-15 05:27 | EKG Report ---
Test Performed on : 02/14/2017 2:33:34 PM Test Reason : AFIB Blood Pressure : / mmHG Vent. Rate : 080 BPM Atrial Rate : 080 BPM P-R Int : 202 ms QRS Dur : 134 ms QT Int : 396 ms P-R-T Axes : 047 -63 040 degrees QTc Int : 456 ms Normal sinus rhythm. Right bundle branch block Left anterior fascicular block Bifascicular block Minimal voltage criteria for LVH, may be normal variant Abnormal ECG When compared with ECG of 11-FEB-2017 12:38, No significant change was found Confirmed by Juan Manuel DAVIS, Fabio Navarro ([id number]) on 02/15/2017 11:16:53 AM
--- NOTE | 2017-02-15 16:09 | DISCHARGE SUMMARY ---
ADMISSION DATE: 02/08/2017 DISCHARGE DATE: 02/14/2017 DISPOSITION: Home. FOLLOWUP: 1. Dr. Pedro. 2. Dr. Wei. 3. Dr. Elizalde. CONSULTATIONS DURING THIS ADMISSION: Pulmonary Medicine was consulted. Patient was seen by Dr. Pedro. INVASIVE PROCEDURES DONE DURING THIS ADMISSION: None. IMAGING STUDIES OF SIGNIFICANCE: 1. A V/Q scan was done on presentation, which showed normal localization and pattern. It was a negative study. 2. An echocardiogram was done, which showed ejection fraction of 60% to 65% with pulmonary artery systolic pressure of 64 mmHg. 3. A chest x-ray was done on the day of discharge, which shows stable cardiomegaly and pulmonary vascular congestion. There is significant improvement in the interstitial edema. ADMISSION DIAGNOSES: 1. Hypoglycemia. 2. Acute kidney injury. 3. Lethargy. 4. History of hypothyroidism. DISCHARGE DIAGNOSES: 1. Acute bronchospasm secondary to underlying chronic obstructive pulmonary disease exacerbation versus asthma. 2. Acute on chronic hypercarbic respiratory failure. 3. Acute hypoxemic respiratory failure secondary to pulmonary edema. 4. Pulmonary hypertension with pulmonary artery systolic pressure of 64, likely due to underlying lung disease and heart disease. 5. Acute diastolic heart failure. 6. Cardiomegaly. 7. Suspected sleep apnea. 8. Obesity with body mass index of 50.9. DISCHARGE MEDICATIONS: 1. Pantoprazole 40 mg daily. 2. Levothyroxine 150 daily. 3. Rivaroxaban 10 mg daily. 4. Tramadol 50 mg q.6. 5. Furosemide 20 mg p.o. q.12. 6. Lisinopril 2.5 daily. PRESENTING COMPLAINT: Lethargy and poorly responsive. HISTORY OF PRESENTING COMPLAINT: Ms. Nuno is a 61-year-old female who has been in and out of the hospital for the past couple of months for different reasons. This time, she came because she was found very lethargic and poorly responsive. Called paramedics and was found to have a glucose level of 30. D50 was given. Sugar remained low, so was brought into the emergency department. Upon presentation, patient was evaluated and was found to be hypoglycemic and also acute kidney injury with a creatinine level of 4.0. Patient's medications that were nephrotoxic were discontinued, was hydrated and admitted to the floor with telemetry monitoring. HOSPITAL COURSE: The patient did pretty well during the hospital course. Creatinine got normalized with adequate hydration and avoiding nephrotoxins. Her lethargy and less responsiveness got better. However, during the hospital course, the patient was also found to have significant shortness of breath. A chest x-ray did show that she had fluid in her lungs. This was interpreted to be CHF as well as possible asthma and COPD. Pulmonary Medicine was consulted. Patient was seen by Dr. Pedro. Some changes were done to her management, to which she responded very well. Yesterday, we planned to discharge the patient. However, her oxygen level continued to be low. We did a chest x-ray, which continued to show some significant fluid in the lungs, so we gave her some diuretic therapy and that improved. Subsequent chest x-ray today showed remarkable improvement and the patient's oxygen level has been stabilized in the low 90s on 3L of oxygen. She is therefore going to be discharged home on 3L of oxygen to follow up with Dr. Pedro. She has been advised to stay away from all nephrotoxins, including Celebrex. She has been started on low-dose lisinopril and the other medication mentioned above. There is the suspicion that the patient has obstructive sleep apnea. FOLLOWUP: She is going to follow up with Dr. Wei with sleep studies. She will also follow up with her primary care doctor as well as Dr. Pedro. At the time of discharge, there are no pending laboratories or imaging studies. There was a concern that the patient might have some atrial fibrillation. We repeated an EKG today and there was none. Patient is, however, advised to follow up with her primary care doctor at a later date. TIME SPENT FOR DISCHARGE: Thirty-eight minutes. cc: Barrington Benson MD
== END 2017-02-14 19:11 | disposition home or self-care (01) ==
LOC: ED 10:20 → 3N 14:37 → SUATTDRO 14:37
PROVIDERS: ATTEND Internal Medicine

== ENCOUNTER 2018-09-18 12:32 | Inpatient (IN) ==
[2018-09-18 13:22] LABS: BASO# 0.04 X1000 (0.0-0.2); BASO% 0.7 % (0.0-0.8); EOS# 0.33 X1000 (0.0-0.7); EOS% 5.7 % (0.0-10.0); HEMATOCRIT 28.2 % (37.0-47.0); LYMPH# 1.68 X1000 (1.2-3.4); LYMPH% 29.2 % (20.5-51.1); MCH 25.4 PG (27-31); MCHC 28.4 g/dL (33-37); MCV 89.5 FL (81-99); MONO# 0.37 X1000 (0.11-0.59); MONO% 6.4 % (1.7-9.3); NEUT# 3.34 X1000 (1.4-6.5); PLT 290 X1000 (130-400); RBC 3.15 XMIL (4.2-5.4); RDW 15.6 % (11.5-14.5); WBC 5.76 X1000 (4.8-10.8)
[2018-09-18 13:27] LABS: ALB/GLOB RATIO 1.4; ALBUMIN 4.1 g/dL (3.5-5.0); CALCIUM 9.1 mg/dL (8.8-10.2); CREATININE 1.2 mg/dL (0.5-0.9); POTASSIUM 4.8 mmol/L (3.5-5.1); TOTAL BILIRUBIN 0.15 mg/dL (0.20-1.00)
--- NOTE | 2018-09-18 13:41 | Diag Imaging Result Doc PS360 ---
CHEST-1 VIEW - 09/18/2018 INDICATION: sob COMPARISON: 08/02/2018 FINDINGS: Lung volumes are low. Stable mild cardiomegaly. No infiltrates or edema. No pneumothorax or pleural effusion. IMPRESSION: Nonspecific findings. Electronically signed by Carlitos Perez 09/18/2018 1:38 PM
--- NOTE | 2018-09-18 14:28 | EKG Report ---
Test Performed on : 09/18/2018 12:42:40 PM Test Reason : sob Blood Pressure : / mmHG Vent. Rate : 082 BPM Atrial Rate : 082 BPM P-R Int : 216 ms QRS Dur : 160 ms QT Int : 388 ms P-R-T Axes : 102 -57 056 degrees QTc Int : 453 ms Sinus rhythm. with 1st degree AV block. Right bundle branch block Left anterior fascicular block Bifascicular block Possible Lateral infarct (cited on or before 30-JUL-2018) Abnormal ECG When compared with ECG of 31-JUL-2018 06:36, No significant change was found Unconfirmed Result
[2018-09-18] MEDS ORDERED: SOLU-MEDROL IV ONE (17:07)
[2018-09-18] MEDS ORDERED: ROCEPHIN 1 GM in NS 50 ML IV ONE (17:07)
[2018-09-18] MEDS ORDERED: ZITHROMAX 500 MG/NS 500 MG/250 ML IVPB IV ONE (17:07)
--- NOTE | 2018-09-18 17:48 | PROVIDER DOCUMENTATION ---
This chart was entered by Alison Castillo Scribe, acting as scribe for Luis Enrique Veliz MD. HPI-Respiratory General - General Chief Complaint: Shortness of Breath Stated Complaint: SHORTNESS OF BREATH Time Seen by Provider: 09/18/18 15:45 Source: patient Allergies/Adverse Reactions: Patient Allergies Allergy/AdvReac Type Severity Reaction Status Date / Time No Known Allergies Allergy Verified 09/18/18 13:24 Home Medications: Home Medication List Medication Instructions Recorded Confirmed Last Taken Type Gabapentin 300 mg PO TID 10/21/16 07/30/18 07/30/18 History Levothyroxine [Synthroid] 150 microgm PO DAILY 10/21/16 07/30/18 07/30/18 History Nortriptyline HCl [Pamelor] 25 mg PO QPM 10/21/16 07/30/18 07/29/18 History Pantoprazole [Protonix] 40 mg PO DAILY 10/21/16 07/30/18 07/30/18 History Fluticasone/Salmet 500/50 INH 1 inh INH BID 07/30/18 07/30/18 07/30/18 History [Advair 500/50 Diskus] Folic Acid/Vit B Complex and C 1 tab PO DAILY 07/30/18 07/30/18 07/29/18 History [Super B Complex Tablet] Glipizide [Glipizide ER] 1 tab PO DAILY 07/30/18 07/30/18 07/30/18 History LISINOpril [Prinivil] 5 mg PO DAILY 07/30/18 07/30/18 07/30/18 History Potassium Chloride 1 cap PO DAILY 07/30/18 07/30/18 07/30/18 History Albuterol 2.5MG/Ipratrop 0.5MG 3 ml INH Q2H PRN PRN #1 neb 08/04/18 Unknown Rx [Duoneb (A & A)] Albuterol Sulfate Inhaler 2 puff INH Q6H PRN PRN #1 08/04/18 07/30/18 02/04/17 07:00 Rx [Ventolin Hfa] Cephalexin [Keflex] 500 mg PO Q8H #15 cap 08/04/18 Unknown Rx Ferrous Sulfate 325 mg PO DAILY #90 tab 12/17/18 Unknown Rx Furosemide [Lasix] 40 mg PO DAILY #180 tab 08/04/18 Unknown Rx Methylprednisolone [Medrol Dosepak] 4 mg PO DIRECTED #1 pkg 08/04/18 Unknown Rx - History of Present Illness-Resp Nature of Presenting Problem: Patient is a 63 year old female who presents to the ED with shortness of breath and cough. Patient states symptoms started 1 week ago. Patient states she is on 2 L home O2. Patient denies chest pain, nausea, vomiting and diarrhea. Quality of Pain: reports: tightness Severity in ED: reports: mild Onset/Duration: reports: 1 week ago Timing: reports: still present Cough Quality/Degree: reports: moderate Episode Frequency: frequent episodes Current Respiratory Medication Therapy: Initiated see nurses note Modifying Factors: improves with: nothing Associated Symptoms: reports: cough, shortness of breath Similar Symptoms Previously?: Yes Recently seen or treated by another doctor?: No Review of Systems - Adult - REVIEW OF SYSTEMS - ADULT Constitutional: reports: no symptoms reported Eyes: reports: no symptoms reported Ears, Nose, Mouth & Throat: reports: no symptoms reported Cardiovascular: reports: no symptoms reported Respiratory: reports: cough, shortness of breath. denies: wheezing Gastrointestinal: reports: no symptoms reported Genitourinary: reports: no symptoms reported Musculoskeletal: reports: no symptoms reported Integumentary: reports: no symptoms reported Neurological: reports: no symptoms reported Psychiatric: reports: no symptoms reported Endocrine: reports: no symptoms reported Hematologic/Lymphatic: reports: no symptoms reported Allergic/Immunologic: reports: no symptoms reported All Other Systems: Reviewed and Negative Past History - Adult - PAST MEDICAL HISTORY-ADULT Review of Records: reports: Nursing Assessment Review, Medications Reviewed, Social history reviewed & non-contributory. Major Childhood Illnesses: reports: denies history Cardiovascular: reports: HTN Respiratory: reports: asthma, COPD Gastrointestinal: reports: GERD Obstetrical/Gynecological: reports: denies history Genitourinary: reports: kidney disease Musculoskeletal: reports: denies history Neurological: reports: denies history Endocrine/Immune: reports: Diabetes, thyroid disorder Other Conditions: reports: denies history - PRIOR SURGERIES/PROCEDURES Surgical/Procedure History: reports: appendectomy, , hernia repair, bowel surgery, joint replacement (total R knee) - IMMUNIZATION STATUS Childhood Immunizations: See Nurse Assessment Flu Vaccine: See Nurse Assessment - FAMILY HISTORY Family History: reviewed, not pertinent - SOCIAL HISTORY Smoking: cigarettes (former) Substance Use: denies Physical Exam-General - PHYSICAL EXAM-ADULT Initial Vital Signs Reviewed: Yes - CONSTITUTIONAL General Appearance: alert, no apparent distress - HEAD, EARS, NOSE, MOUTH & THROAT HENMT: moist mucous membranes - NECK Neck: normal inspection - RESPIRATORY Respiratory: chest non-tender, crackles (bilateral) - CARDIOVASCULAR Cardiovascular: normal peripheral pulses, regular rate, rhythm - GASTROINTESTINAL (ABDOMEN) Abdominal Exam: normal bowel sounds, non tender, soft - MUSCULOSKELETAL Extremity: other (3 + pitting edema to bilateral lower extremities) - SKIN Integumentary: normal color, normal turgor, warm/dry - NEUROLOGIC Neurologic: grossly normal - PSYCHIATRIC Psych/Mental Status: normal mood/affect, oriented x 3 Progress - PLAN OF CARE/RESULTS Progress/Plan/Lab Results: Vital Signs - 8 hr 09/18/18 12:35 09/18/18 14:32 Temperature 97.1 F L 97.8 F Pulse Rate 84 92 H Respiratory Rate 20 18 Blood Pressure 162/65 167/62 O2 Sat by Pulse Oximetry 93 L 99 Laboratory Results - last 24 hr 09/18/18 09/18/18 09/18/18 12:57 12:57 12:57 WBC 5.76 RBC 3.15 L Hgb 8.0 L Hct 28.2 L MCV 89.5 MCH 25.4 L MCHC 28.4 L RDW Std Deviation 15.6 H Plt Count 290 MPV 9.0 Immature Gran % (Auto) 0.0 Neut % (Auto) 58.0 Lymph % (Auto) 29.2 [place] % (Auto) 6.4 Eos % (Auto) 5.7 Baso % (Auto) 0.7 Immature Gran # (Auto) 0.00 Neut # (Auto) 3.34 Lymph # (Auto) 1.68 [place] # (Auto) 0.37 Eos # (Auto) 0.33 Baso # (Auto) 0.04 Sodium 137 Potassium 4.8 Chloride 96 L Carbon Dioxide 30 Anion Gap 11 BUN 25 H Creatinine 1.2 H Estimated GFR/1.73 m2 45 BUN/Creatinine Ratio 21 Glucose 91 Calculated Osmolality 278 Calcium 9.1 Total Bilirubin 0.15 L AST 19 ALT 15 Alkaline Phosphatase 75 Kwj-D-Xcmodehwcmm Pept 246 Total Protein 7.0 Albumin 4.1 Globulin 2.9 Albumin/Globulin Ratio 1.4 Orders Category Date Time Status Saline Loc NOW Care 09/18/18 17:07 Active Use ED:PneumoniaAdultSet As Ordered Care 09/18/18 12:44 Active CHEST-1 VIEW [RAD] Stat Exams 09/18/18 12:44 Completed ABG [RESP] Routine Lab 09/18/18 17:39 Ordered BLOOD CULTURE [BLDCUL] Stat Lab 09/18/18 12:57 Ordered CBC WITH ELECTRONIC DIFF [HEME] Stat Lab 09/18/18 12:57 Completed COMPREHENSIVE METABOLIC PANEL [CHEM] Stat Lab 09/18/18 12:57 Completed PRO B-NATRIURETIC PEPTIDE Stat Lab 09/18/18 12:57 Completed Azithromycin 500 mg/Ns [Zithromax 500 mg/Ns] Med 09/18/18 17:07 Active 500 mg in 250 ml IV NOW CefTRIAXONE [Rocephin] 1 gm Med 09/18/18 17:07 Discontinued 0.9% Sodium Chloride Inj [Ns] 50 ml IV NOW Methylprednisolone Sod Succ [Solu-Medrol] Med 09/18/18 17:07 Discontinued 60 mg IV NOW ONE Pneumonia (suspected) Stat Oth 09/18/18 12:44 Ordered EKG [EKG] Stat Ther 09/18/18 12:45 Draft A/P: Pt has suspected fluid overload, 3+ pitting edema, bilateral crackles, considering COPD exacerbation. Will admit for further evaluation. Result Diagrams: 09/18/18 12:57 09/18/18 12:57 - EKG 1 Time of EKG reading by physician:: 12:42 EKG Read and Signed by:: Gera Davalos EKG Interpretation (*Must complete 3 of following elements*): Abnormal Rate: 82 Rhythm: sinus rhythm with 1st degree AV block QRS: RBB Comments: left anterior fascicular block; bifascicular block - XRAY 1 XRAY Study: Chest Impression: See EMR Report ( CHEST-1 VIEW - 09/18/2018 INDICATION: sob COMPARISON: 08/02/2018 FINDINGS: Lung volumes are low. Stable mild cardiomegaly. No infiltrates or edema. No pneumothorax or pleural effusion. IMPRESSION: Nonspecific findings. Electronically signed by Carlitos Perez 09/18 1:38 PM 09/18/18 2309 Interpreting Physician: Carlitos Perez MD Dictated Date/Time: 09/18/18 9612 cc: Gera Davalos MD; Ann Elizalde MD ) - CONSULTS/PCP/HOSPITALIST Notification #1 *Consult/PCP/Hospitalist*: VANIA Gordon for Hospitalist Time Discussed: 17:36 Reason/Comments: Dr. Veliz consulted with RODRIGO Gordon about patient. Consult Disposition: Will see in ED, Admit Departure - Departure Date of Disposition Decision: 09/18/18 Time of Disposition Decision: 17:37 DIAGNOSIS: COPD exacerbation Disposition: ADMITTED INPATIENT 09 Certified Medical Emergency: Emergent Condition: Fair Additional Freetext Instructions: We have examined and treated you today on an emergency basis only. This was not a substitute for, or an effort to provide, complete medical care. In most cases , you must let your doctor check you again. Tell your doctor about any new or lasting problems. We cannot recognize and treat all injuries or illnesses in one Emergency Department visit. If you had special tests, such as X-rays or CT scans, will be reviewed by radiologist and will call you if there are any new suggestions Follow up with primary care provider in 1 to 2 days if no improvement. If you do not have a primary care provider, you need to choose one as soon as possible. Take medicines as prescribed. Monitor for any side effects or adverse events from medications. If any side effect, adverse event or rash develops, or if you suspect any other adverse reaction to the medication, then discontinue the medication immediately and contact clinic /PCP or go to the nearest ER. Narcotic meds / sedative meds instruction - patent advised not to drive, operate any machinery or go into water after taking meds as it may impair mental ability to react to the situation in an appropriate manner. Continue other current medicines. Follow up with PCP within 24-48 hours, or sooner if symptoms worsen or fail to improve. Patient / guardian verbalizes understanding of treatment plan, medication, and side effects and agrees with treatment plan. Patient leaves ER in stable condition and ambulatory state. Return to ER as needed. Discharge instructions reviewed verbally and given to patient in written form. Follow up with primary care provider. Referrals and Follow-Ups: Ann Elizalde MD [Primary Care Provider] - - Critical Care Note This patient required my direct & personal management of CC.: No Attestation - Physician/ KEYANA Attestation Patient care was provided by Advanced Practice Provider:: No The physician spent face to face time with patient:: Yes Advanced Practice Provider documentation review:: Supervising physician onsite and consulted in the evaluation and care of this patient. The physician did have a face to face encounter with the patient. This chart was documented by the indicated scribe, (Alison Castillo Scribe) and accurately reflects the services I performed and decisions made by me, Luis Enrique Veliz MD, as attested by the provider's signature.
[2018-09-18] MEDS ORDERED: ZOFRAN IV PRN (18:00)
[2018-09-18] MEDS ORDERED: TYLENOL PO PRN (18:00)
[2018-09-18] MEDS ORDERED: LASIX IV ONE (18:04)
[2018-09-18 18:15] LABS: ALLEN TEST NO; BE 10.2 mmoll (-3.0-3.0); BLOOD TYPE ARTERIAL; HCO3-(ACT) 32.9 mmoll (20.0-26.0); METHB 1.3 % (0.0-1.5); O2(CT) 10.8 mL/dL (15.0-23.0); PO2(98.6) 70 mmHg (60-100); SAMPLE BLOOD; SAO2 96.8 % (95.0-100.0); THB 8.1 g/dL (11.5-17.4); pH(98.6) 7.41 (7.35-7.45)
[2018-09-18 18:17] LABS: MODALITY CANNULA; PCO2(98.6) 57 mmHg (35-45)
--- NOTE | 2018-09-18 18:37 | HISTORY AND PHYSICAL ---
PHYSICIAN: Ann Elizalde MD She was last here in the hospital I think on 07/30/2018. PAST MEDICAL HISTORY: 1. Asthma since a child. 2. COPD. 3. Cor pulmonale. 4. Tobacco history. Patient quit in 2000, before that was a 30 pack history. 5. Morbid obesity. BMI greater than 58. 6. Diabetes mellitus type 2 for which she is on metformin. 7. Hypertension. 8. Hypothyroidism. 9. Strangulated ventral hernia status post repair. 10. Chronic hypercapnic respiratory failure. PAST SURGICAL HISTORY: 1. Status post repair of ventral hernia almost 2 years ago. 2. Status post x2. 3. Appendectomy. 4. Right total knee replacement or total knee arthroplasty in January of 2017. She reports that for the last 2 weeks she has become progressively more short of breath especially dyspnea with any exertion, and is just feels like she is retaining fluid in her feet and in her legs. She denies fever or chills. Denies any productive sputum. Denies any pleuritic pain. No chest pain or palpitations reported. No change in her medications. She is on nebulized DuoNeb as well as taking Advair steroid inhaler and she is regular on that. Recently, she has gone up on her Lasix on her own. I think from 40 mg to 80 mg. Actually, I think she is taking a 60 mg in the morning. She added another 20 at night. She has not weighed herself. She does not know if she has had weight retention but feels like she has. SOCIAL HISTORY: Nonsmoker since 2000. No alcohol or illicit drugs. She is with supportive at the bedside. She is in [facility]. She was adopted. FAMILY HISTORY: Unknown except for alcoholism for family members that she has met. REVIEW OF SYSTEMS: She does not report any recorded weight change, but she feels like she gained weight, fluid weight in particular. No fever or chills.HEENT: She does not report any change in hearing or visual acuity. Neck: No neck pain. No adenopathy that she has recognized. Cardiovascular: No chest pain or tachy palpitation. Respiratory: Increased dyspnea on exertion. She does not describe orthopnea or paroxysmal nocturnal dyspnea, but mainly just marked short of breath when she takes a couple of steps. Gastrointestinal and Genitourinary: No gross hematuria or dysuria. Neurologic: No focal complaints. Endocrinologic/Hematologic: No significant history. ALLERGIES: No known drug allergies. MEDICATIONS: Review her list of medications. PHYSICAL EXAMINATION: Temperature 97.8 degrees, pulse 92, respirations 18, blood pressure 162/62. HEENT: Pupils are equal. Conjunctiva and gingiva without pallor CVP appears to be really less than 6 cm. I do not see any distended neck veins. Her carotid, radial and femoral pulses appear to be 2+ and symmetrical. Pedal pulses are 2+ and symmetrical. NECK: Supple. No thyromegaly. LUNGS: Clear anterior and posterior in all lung collins. I do not appreciate rales. CARDIOVASCULAR: Regular rhythm and rate without murmur or S3. I do not appreciate an S4. ABDOMEN: Soft, nondistended, and nontender. She has trace pitting edema from ankle to mid ruiz. SKIN: Warm and dry. LABORATORY: White count 5760. Hematocrit is 28, platelet count 290,000. Sodium 137, potassium 4.8, chloride 96, BUN 25, and creatinine 1.2. Calcium 9.1. Blood sugar was 91. Alkaline phosphatase 75, proBNP was 246, and albumin 4.1. Chest x-ray with nonspecific findings. Lung volumes are low. Stable cardiomegaly. MEDICATIONS: On looking at her home medications, she is on DuoNeb's and Keflex. She was put on a course of Keflex, ferrous sulfate, Advair, Lasix 40 mg a day, gabapentin 300 mg t.i.d., glipizide ER 1 a day, Prinivil 5 mg a day. Synthroid 150 mcg daily, methylprednisone or Medrol Dosepak. She is on Pamelor 25 mg a day and Protonix 40 mg a day. ASSESSMENT AND PLAN: 1. It appears she has some right-sided cor pulmonale history. She has some fluid in her legs, and she may have some mild interstitial pulmonary venous hypertension as well. So, we will give her Lasix 80 mg IV. I will give her a dose tonight and recess this chest x-ray in the morning and how she is doing. We will follow her electrolytes, potassium and magnesium. We will check her thyroid. 2. She really gives no clinical sign or evidence that she has an infection going on. She does have wheezing, and I am going to treat her for acute bronchitis. I think we will go ahead and give her Rocephin 1 g now and then one q.24 hours. We will try her on some guaifenesin 1200 mg twice a day and see if that will help with mucus clearance. We will continue her Advair and give her DuoNeb's. 3. Diabetes mellitus type 2. Sugars look like they are well controlled. We will check a hemoglobin A1c in the morning. We will put her on just pattern sugars. Continue her oral metformin. 4. History of asthma. She has been taking nebulizers. We will continue DuoNeb's, and we will continue her Advair. She does have some wheezing but it is mild in expiratory. 5. History of gastroesophageal reflux. Continue Protonix. 6. She has had some history of neuropathic pain, I am assuming that is neuropathy. We will continue her gabapentin 300 mg t.i.d. We will put her on a diabetic diet, and just have IV to keep vein open. cc: Martínez Bird MD
[2018-09-18] MEDS ORDERED: LASIX ONE ×2 (18:48→18:50)
[2018-09-18] MEDS: PULMICORT INH SCH (20:30)
[2018-09-18] MEDS: DUONEB (A & A) INH SCH ×2 (20:30→23:41)
[2018-09-18] MEDS ORDERED: PAMELOR PO SCH (21:00)
[2018-09-19] MEDS: HUMULIN R SUBQ SCH ×4 (01:48→11:09)
[2018-09-19] MEDS: MUCINEX PO SCH ×2 (01:49→09:31)
[2018-09-19] MEDS: SOLU-MEDROL IV SCH ×2 (01:49→09:31)
[2018-09-19] MEDS: DUONEB (A & A) INH SCH ×3 (03:47→11:55)
[2018-09-19] MEDS ORDERED: VANCOMYCIN 2,500 MG in NS 500 ML IV ONE (06:00)
[2018-09-19] MEDS ORDERED: VANCOMYCIN IV PER PHARMACY MISC SCH (06:15)
[2018-09-19] MEDS ORDERED: SYNTHROID PO SCH (07:00)
--- NOTE | 2018-09-19 07:22 | EKG Report ---
Test Performed on : 09/19/2018 07:02:58 AM Test Reason : chest pain Blood Pressure : / mmHG Vent. Rate : 095 BPM Atrial Rate : 095 BPM P-R Int : 194 ms QRS Dur : 158 ms QT Int : 382 ms P-R-T Axes : -04 -66 053 degrees QTc Int : 480 ms Normal sinus rhythm. with sinus arrhythmia. Right bundle branch block Left anterior fascicular block Bifascicular block Left ventricular hypertrophy with repolarization abnormality Possible Lateral infarct (cited on or before 30-JUL-2018) Abnormal ECG When compared with ECG of 18-SEP-2018 12:42, (Unconfirmed) Questionable change in initial forces of Lateral leads Confirmed by Yael DAVIS, Celso Mcdonald ([id number]) on 09/21/2018 5:36:42 PM
[2018-09-19 07:51] LABS: BASO# 0.01 X1000 (0.0-0.2); BASO% 0.2 % (0.0-0.8); HEMATOCRIT 28.5 % (37.0-47.0); HEMOGLOBIN 8.1 g/dL (12.0-16.0); IMM GRAN# 0.02 X1000 (0.0-0.04); IMM GRAN% 0.3 % (0.0-0.5); LYMPH# 0.55 X1000 (1.2-3.4); MCH 25.2 PG (27-31); MCHC 28.4 g/dL (33-37); MCV 88.8 FL (81-99); MONO# 0.02 X1000 (0.11-0.59); MONO% 0.3 % (1.7-9.3); NEUT# 5.53 X1000 (1.4-6.5); NEUT% 90.2 % (42.2-75.2); PLT 309 X1000 (130-400); RBC 3.21 XMIL (4.2-5.4); RDW 15.6 % (11.5-14.5); WBC 6.13 X1000 (4.8-10.8)
[2018-09-19 07:52] LABS: INR 0.9; PROTIME 12.9 Seconds (11.0-16.0)
[2018-09-19] MEDS: PULMICORT INH SCH (07:52)
[2018-09-19 07:53] LABS: PTT 25.8 Seconds (22.3-41.8)
[2018-09-19 08:15] LABS: BANDS 2 % (0-1); HYPOCHROM 1+; LYMPHS 6 % (21-51); SEGS 90 % (42-75)
[2018-09-19 08:24] LABS: ALB/GLOB RATIO 1.5; ALBUMIN 4.1 g/dL (3.5-5.0); CALCIUM 9.3 mg/dL (8.8-10.2); CREATININE 1.4 mg/dL (0.5-0.9); MAGNESIUM 1.6 mg/dL (1.5-2.7); POTASSIUM 5.1 mmol/L (3.5-5.1); TOTAL BILIRUBIN 0.21 mg/dL (0.20-1.00); TOTAL PROTEIN 6.8 g/dL (6.3-8.3)
[2018-09-19 08:41] LABS: FREE T4 1.43 ng/dL (0.93-1.70); TSH 1.96 uIUmL (0.27-4.20)
[2018-09-19] MEDS ORDERED: FERROUS SULFATE PO SCH (09:00)
[2018-09-19] MEDS ORDERED: PROTONIX PO SCH (09:00)
[2018-09-19] MEDS ORDERED: NEURONTIN PO SCH (09:00)
[2018-09-19] MEDS ORDERED: PRINIVIL PO SCH (09:00)
[2018-09-19] MEDS ORDERED: LOVENOX SUBQ SCH (09:00)
[2018-09-19] MEDS ORDERED: PATIENT'S OWN MED PO SCH (09:00)
[2018-09-19] MEDS ORDERED: GLUCOTROL XL PO SCH (09:00)
--- NOTE | 2018-09-19 10:15 | Diag Imaging Result Doc PS360 ---
EXAM: CHEST-2 VIEWS HISTORY: sob TECHNIQUE: Chest two views COMPARISON: 09/18/2018 FINDINGS: Poor inspiratory effort. There is basilar atelectasis and/or infiltrates. Findings are slightly more prominent than on the prior exam. No pleural effusions. The heart is mildly prominent. IMPRESSION: Mild interval worsening. Electronically signed by David Pritchett 09/19/2018 10:13 AM
[2018-09-19 12:22] VITALS: BP 159/63
--- NOTE | 2018-09-19 14:58 | DISCHARGE SUMMARY ---
ADMISSION DATE: 09/18/2018 DISCHARGE DATE: HISTORY: She is followed by Dr. Elizalde. She came in complaining of shortness of breath and swelling and concerned with her increased dyspnea. PAST MEDICAL HISTORY: 1. Asthma as a child. 2. COPD. 3. Cor pulmonale. 4. Tobacco history. The patient quit back in 2000 and had a 30 pack history. 5. Morbid obesity. BMI greater than 58. 6. Diabetes mellitus, type 2. She is on metformin. 7. Hypertension. 8. Hypothyroidism. 9. Strangulated ventral hernia, status post repair. 10. Chronic hypercapnic respiratory failure. PAST SURGICAL HISTORY: 1. Status post repair of ventral hernia almost 2 years ago. 2. Status post section x2. 3. Appendectomy. 4. Right total knee replacement and total knee arthroplasty in January,. ADMISSION DIAGNOSIS: Concerned maybe she was having some acute cor pulmonale. She complained of some swelling. Chest x-ray really did not look very bad. I went ahead and gave her some diuretic, and I suspect some of this is a component of anxiety as well. She did report having some panic attacks. So, the next day she felt much better. She was requesting to go home. Blood sugars appear well controlled. No sign of infection. No sign of bronchospasm. Good air and gas exchange. So, I will let her go home. She is supposed to follow up with Dr. Wei, I think, on Saturday. PHYSICAL EXAMINATION: Vital Signs: Today, temperature 97.6, pulse 89, respirations 20, blood pressure 159/63. Eyes: Pupils are equal. Neck: No distended neck veins. Lungs: Clear in all lung collins. Cardiovascular: Regular rhythm and rate without murmur or S3. REVIEW OF LABORATORY DATA: Really no significant findings. Creatinine 1. 2 when she came in; after diuresis, 1.4. Blood gases on arrival yesterday pH was 7.41 pCO2 of 57, PO2 is 70, O2 sats 96%. Chest x-ray: Mild interval of worsening poor inspiratory effort. She had basilar atelectasis but no sign of pneumonia and no pleural effusions. So, we will discharge her home on 1. DuoNebs, albuterol. 2. Ventolin inhaler as needed. So, you can stop her Keflex. 3. She is on ferrous sulfate 325 mg a day. 4. She takes her Advair 500/50 one puff b.i.d. 5. She is on super B complex. 6. Continue other day Lasix 40 mg a day. 7. Gabapentin 300 mg t.i.d. 8. Glipizide ER 1 a day. 9. Prinivil 5 mg a day. 10. Synthroid 150 mcg daily. 11. Metformin 1000 mg b.i.d. 12. She can finish her Medrol Dosepak. 13. Nortriptyline 25 mg a day. 14. Protonix 40 mg a day. 15. Potassium chloride once a day. cc: Martínez Bird MD
[2018-09-19] MEDS ORDERED: ROCEPHIN 1 GM in NS 50 ML IV SCH (17:00)
[2018-09-20] MEDS ORDERED: VANCOMYCIN 2 GM in NS 500 ML IV SCH (18:00)
== END 2018-09-19 16:50 | disposition home or self-care (01) | DRG 202 ==
LOC: ED 12:32 → EDIPHOLD 19:50 → 3N 21:35
PROVIDERS: ATTEND Emergency Medicine
CPT/HCPCS: 51702; 71010; 71020; 71045; 71046; 80053; 82533; 82607; 82746; 82805; 82948; 83735; 83880; 84439; 84443; 85025; 85610; 85730; 87040; 87077; 87186; 93005; 93010; 94640; 94761; 96365; 96367; 96375; 97162; 99285; A9270; J0456; J0696; J1650; J1940; J2920; J2930; J3370; J7040; XXXXX

== ENCOUNTER 2018-11-20 14:42 | Inpatient (IN) ==
[2018-11-20 15:46] LABS: BASO# 0.04 X1000 (0.0-0.2); BASO% 0.6 % (0.0-0.8); EOS% 4.8 % (0.0-10.0); HEMATOCRIT 27.3 % (37.0-47.0); HEMOGLOBIN 7.7 g/dL (12.0-16.0); IMM GRAN# 0.02 X1000 (0.0-0.04); IMM GRAN% 0.3 % (0.0-0.5); LYMPH# 1.61 X1000 (1.2-3.4); LYMPH% 25.6 % (20.5-51.1); MCH 24.3 PG (27-31); MCHC 28.2 g/dL (33-37); MCV 86.1 FL (81-99); MONO# 0.43 X1000 (0.11-0.59); MONO% 6.8 % (1.7-9.3); MPV 9.4 FL (7.4-10.4); NEUT# 3.89 X1000 (1.4-6.5); NEUT% 61.9 % (42.2-75.2); PLT 269 X1000 (130-400); RBC 3.17 XMIL (4.2-5.4); RDW 14.9 % (11.5-14.5); WBC 6.29 X1000 (4.8-10.8)
--- NOTE | 2018-11-20 15:48 | EKG Report ---
Test Performed on : 11/20/2018 3:18:07 PM Test Reason : sob Blood Pressure : / mmHG Vent. Rate : 081 BPM Atrial Rate : 081 BPM P-R Int : 210 ms QRS Dur : 154 ms QT Int : 410 ms P-R-T Axes : 090 -58 048 degrees QTc Int : 476 ms Sinus rhythm. with marked sinus arrhythmia. with 1st degree AV block. with occasional ventricular-pac ed complexes Right bundle branch block Left anterior fascicular block Bifascicular block Minimal voltage criteria for LVH, may be normal variant Possible Lateral infarct , age undetermined Abnormal ECG When compared with ECG of 19-SEP-2018 07:02, Electronic ventricular pacemaker has replaced Sinus rhythm. Unconfirmed Result
[2018-11-20 15:53] LABS: INR 0.82; PROTIME 11.9 Seconds (11.0-16.0)
[2018-11-20 15:54] LABS: PTT 30.2 Seconds (22.3-41.8)
--- NOTE | 2018-11-20 16:02 | Diag Imaging Result Doc PS360 ---
CHEST-2 VIEWS - 11/20/2018 INDICATION: sob COMPARISON: 09/19/2018 FINDINGS: Lung volumes are low. Stable cardiomegaly. There are ill-defined bilateral basilar infiltrates similar to prior. No pneumothorax or pleural effusion. IMPRESSION: Nonspecific findings. No change from prior. Electronically signed by Carlitos Perez 11/20/2018 4:00 PM
[2018-11-20 16:25] LABS: ALB/GLOB RATIO 1.3; ALBUMIN 3.9 g/dL (3.5-5.0); CALCIUM 9.6 mg/dL (8.8-10.2); CREATININE 1.5 mg/dL (0.5-0.9); POTASSIUM 4.9 mmol/L (3.5-5.1); TOTAL BILIRUBIN 0.16 mg/dL (0.20-1.00)
[2018-11-20 17:05] LABS: CK INDEX 2.2 (0.0-2.5); CK-MB 6.24 ng/mL (0.0-5.0)
--- NOTE | 2018-11-20 17:12 | ED EKG INTERP ---
This chart was entered by Alison Castillo Scribe, acting as scribe for Gee Schultz MD. EKG Interpretation - EKG Time of EKG reading by physician:: 15:18 EKG Read and Signed by:: Gee Schultz EKG Interpretation (*Must complete 3 of following elements*): Abnormal (rhythm- sinus rhythm with marked sinus arrhythmia with 1st degree AV block with occasional ventricular-paced complexes; minimal voltage criteria for LVH, may be normal variant; possible lateral infarct, age undetermined) Rate: 81 QRS: RBB Comments: left anterior fascicular block; bifascicular block; Attestation - Physician/ KEYANA Attestation The physician spent face to face time with patient:: No Advanced Practice Provider documentation review:: Supervising physician onsite and consulted in the evaluation and care of this patient. The physician did not have a face to face encounter with the patient. This chart was documented by the indicated scribe, (Alison Castillo Scribe) and accurately reflects the services I performed and decisions made by me, Gee Schultz MD, as attested by the provider's signature.
[2018-11-20] MEDS ORDERED: LASIX IV ONE (20:00)
[2018-11-20] MEDS ORDERED: DUONEB (A & A) INH PRN (21:14)
[2018-11-20] MEDS ORDERED: ZOFRAN IV PRN (21:40)
[2018-11-20 22:32] LABS: ALLEN TEST YES; BE 6.1 mmoll (-3.0-3.0); BLOOD TYPE ARTERIAL; HCO3-(ACT) 29.7 mmoll (20.0-26.0); METHB 0.4 % (0.0-1.5); O2(CT) 10.5 mL/dL (15.0-23.0); O2HB 96.7 % (95.0-99.0); PO2(98.6) 87 mmHg (60-100); SAMPLE BLOOD; SAO2 98.7 % (95.0-100.0); THB 7.6 g/dL (11.5-17.4); pH(98.6) 7.35 (7.35-7.45)
[2018-11-20 22:33] LABS: MODALITY CANNULA
[2018-11-20 22:37] LABS: PCO2(98.6) 59 mmHg (35-45)
--- NOTE | 2018-11-20 22:44 | HISTORY AND PHYSICAL ---
PRIMARY CARE PHYSICIAN: Ann Elizalde MD CHIEF COMPLAINT: Shortness of breath. HISTORY OF PRESENT ILLNESS: This is a 63-year-old morbidly obese female with multiple medical conditions including asthma, COPD, morbid obesity, diabetes, hypertension, cor pulmonale and chronic hypercapnic respiratory failure. She presented to the emergency department complaining of shortness of breath. She has been admitted to the hospital 2 times, in 07/2018 and 08/2018 for pulmonary edema, cor pulmonale and also hypercapnic respiratory failure. She reported that since her last admission, when apparently she had good diuresis with many liters of fluid removed from her system, she was feeling fine for a few days, probably a week. Then she started noticing some shortness of breath that, according to her, is usual for her. That shortness of breath was getting worse probably during the last 1-2 weeks. She noticed more swelling in both lower extremities, like she had in August of this year when she was admitted. Also she reports episodes of stopped breathing, according to the . She has been diagnosed with sleep apnea. She is supposed to get her CPAP machine in the next few days. Also, she mentioned that she has been treated for bilateral lower extremity cellulitis. She has been given cephalexin for 10 days. Because of no clinical improvement, she was given clindamycin for 7 days, but according to her she has been basically the same. That is the reason why she came to the emergency department. Here in the ER the evaluation showed that the x-ray showed nonspecific findings. There are some bilateral basilar infiltrates similar to prior. Also laboratory data showed just mildly increased proBNP that could be related to chronic kidney disease. In any case, because of shortness of breath and cellulitis, the patient is going to be admitted to the hospital. PAST MEDICAL HISTORY: 1. Diabetes mellitus type 2, on metformin for the last 5 years. 2. Hypertension. 3. Hypothyroidism. 4. COPD. 5. Asthma. 6. Morbid obesity with BMI of 68.4. On admission from July the BMI was 58.6. 7. Cor pulmonale. 8. Chronic hypercapnic respiratory failure. PAST SURGICAL HISTORY: 1. Strangulated ventral hernia, status post repair. 2. x2. 3. Appendectomy. 4. Right total knee replacement in 01/2017. ALLERGIES: No known drug allergies. SOCIAL HISTORY: The patient carries a history of [id number] history. The patient quit in 2000, not a smoker since then. The patient denies using any illicit drugs or drinking alcohol. The patient is . at bedside. FAMILY HISTORY: Noncontributory. The patient is adopted. REVIEW OF SYSTEMS: Eleven systems were reviewed and all symptoms are related to H and P. PHYSICAL EXAMINATION: VITAL SIGNS: Temperature 98.2 degrees, heart rate 78, respiratory rate 18, blood pressure 172/69, O2 saturation 92% on 3 L nasal cannula. GENERAL: This is an extremely morbidly obese 63-year-old female lying in bed, in no acute distress. HEENT: Head is normocephalic, atraumatic. Pupils equal, round and reactive to light and accommodation. Anicteric sclerae. Normal conjunctivae. NECK: Supple. JVD is not possible to evaluate because of the neck girth. No lymphadenopathy. No thyromegaly. CARDIOVASCULAR: S1, S2 heard. No murmurs, gallops or rubs. Regular rate and rhythm. RESPIRATORY: Minimal expiratory wheezing noted in both pulmonary bases, along with minimal crackles as well. The patient is not using any accessory muscles or having work of breathing. ABDOMEN: Soft, obese, nondistended, nontender to palpation. Bowel sounds present. No organomegaly. EXTREMITIES: The patient has 3+ pitting edema in both lower extremities, as well as erythema in both lower extremities up to both knees. NEUROLOGIC: The patient is alert and oriented x3. Moves 4 extremities. LABORATORY DATA: White cell count 6.09, hemoglobin 7.7, hematocrit 27.3, platelets 269,000. BMP remarkable for creatinine to 1.5 with BUN 25, GFR 35. ProBNP of 509. ASSESSMENT AND PLAN: 1. Acute cor pulmonale with pulmonary edema. That is what clinically it looks like she has. She has crackles in both pulmonary bases, so we are going to start Lasix 60 mg intravenously q.12 hours. We are going to check BMP closely to see any worsening renal function. We will monitor strict intake and output. We will continue with home oxygen. In this case she uses 3 L/min. 2. Bilateral lower extremity cellulitis. We will start Teflaro 600 mg intravenously q.12 hours and Zosyn as well. We will continue to monitor CBC daily. 3. Anemia of chronic disease. Hemoglobin 7.7. We are going to monitor CBC daily. 4. Chronic kidney disease. I have seen on previous labs during the last 2 hospitalizations that her renal function is slightly decreased. It was 1.3 and 1.5 with GFR of 35, which basically makes the diagnosis of chronic kidney disease stage 2. We will continue to monitor CBC. 5. Diabetes mellitus type 2. We are going to check hemoglobin A1c. We will do Accu-Chek before meals and also at bedtime. We are going to hold metformin for this patient. 6. Hypertension. We will continue home medications. 7. Hypothyroidism. We will continue home dose of Synthroid. 8. Morbid obesity. The patient has been educated about the advantage of losing weight. Actually, she may be a candidate for bariatric surgery evaluation. cc: Nathaniel Hunt MD MTDD
[2018-11-20] MEDS: LOVENOX SUBQ SCH (23:13)
[2018-11-20] MEDS: LASIX IV SCH (23:22)
[2018-11-20] MEDS: ZOSYN 3.375 GM in NS 50 ML IV SCH (23:27)
--- NOTE | 2018-11-21 01:04 | PROVIDER DOCUMENTATION ---
This chart was entered by Savannah Claros Scribe, acting as scribe for Alyson Anna MD. HPI-General Adult - General Chief Complaint: Shortness of Breath Stated Complaint: CELLULITIS BOTH LEGS Time Seen by Provider: 11/20/18 19:04 Source: patient Allergies/Adverse Reactions: Patient Allergies Allergy/AdvReac Type Severity Reaction Status Date / Time No Known Allergies Allergy Verified 11/20/18 15:08 Home Medications: Home Medication List Medication Instructions Recorded Confirmed Last Taken Type Gabapentin 300 mg PO TID 10/21/16 07/30/18 07/30/18 History Levothyroxine [Synthroid] 150 microgm PO DAILY 10/21/16 07/30/18 07/30/18 History Nortriptyline HCl [Pamelor] 25 mg PO QPM 10/21/16 07/30/18 07/29/18 History Pantoprazole [Protonix] 40 mg PO DAILY 10/21/16 07/30/18 07/30/18 History Fluticasone/Salmet 500/50 INH 1 inh INH BID 07/30/18 07/30/18 07/30/18 History [Advair 500/50 Diskus] Folic Acid/Vit B Complex and C 1 tab PO DAILY 07/30/18 07/30/18 07/29/18 History [Super B Complex Tablet] Glipizide [Glipizide ER] 1 tab PO DAILY 07/30/18 07/30/18 07/30/18 History LISINOpril [Prinivil] 5 mg PO DAILY 07/30/18 07/30/18 07/30/18 History Potassium Chloride 1 cap PO DAILY 07/30/18 07/30/18 07/30/18 History Albuterol 2.5MG/Ipratrop 0.5MG 3 ml INH Q2H PRN PRN #1 neb 08/04/18 Unknown Rx [Duoneb (A & A)] Albuterol Sulfate Inhaler 2 puff INH Q6H PRN PRN #1 08/04/18 07/30/18 02/04/17 07:00 Rx [Ventolin Hfa] Ferrous Sulfate 325 mg PO DAILY #90 tab 08/04/18 Unknown Rx Furosemide [Lasix] 40 mg PO DAILY #180 tab 08/04/18 Unknown Rx Methylprednisolone [Medrol Dosepak] 4 mg PO DIRECTED #1 pkg 08/04/18 Unknown Rx Guaifenesin E.r. [Mucinex] 600 mg PO BID 30 Days #60 tab 09/19/18 Unknown Rx LISINOpril [Prinivil] 5 mg PO DAILY tablet 09/19/18 Unknown Rx Metformin [Glucophage] 1,000 mg PO BID 09/19/18 09/19/18 09/18/18 History - History of Present Illness -Gen Adult Nature of Presenting Problems: Pt is 63/F presenting to ED w/ bilateral lower extremity swelling and pain that has been present for the last 3 weeks. She sts that she went to her PCP and was dx w/ cellulitis and has been on antibiotics that she says have not helped her. Pt also c/o some SOB and sts that she can only walk about 20 ft before becoming very SOB. Pt is on 02 at home hx of COPD Location of Pain/Injury: reports: lower extremity Pain Radiation: denies: chest Quality of Pain: reports: none, throbbing, tightness. denies: aching Onset/Duration: reports: other (3 weeks captain waiter/waitress) Timing: reports: getting worse Context/Activities at Onset: reports: none Modifying Factors: improves with: nothing Associated Symptoms: reports: shortness of breath. denies: chest pain, cough Similar Symptoms Previously?: No Recently seen or treated by another doctor?: No Review of Systems - Adult - REVIEW OF SYSTEMS - ADULT Constitutional: reports: no symptoms reported. denies: chills, fever Eyes: reports: no symptoms reported Ears, Nose, Mouth & Throat: reports: no symptoms reported. denies: ear pain Cardiovascular: reports: edema. denies: chest pain Respiratory: reports: shortness of breath. denies: cough Gastrointestinal: reports: no symptoms reported. denies: abdominal pain, nausea, vomiting Genitourinary: reports: no symptoms reported Musculoskeletal: reports: no symptoms reported Integumentary: reports: no symptoms reported Neurological: reports: no symptoms reported. denies: dizziness/vertigo, headache/migraines Psychiatric: reports: no symptoms reported, anti-depressant use Past History - Adult - PAST MEDICAL HISTORY-ADULT Review of Records: reports: Old Records Reviewed, Nursing Assessment Review, Medications Reviewed, Social history reviewed & non-contributory. Major Childhood Illnesses: reports: denies history Cardiovascular: reports: HTN Respiratory: reports: asthma, COPD Gastrointestinal: reports: GERD Obstetrical/Gynecological: reports: denies history Genitourinary: reports: kidney disease Musculoskeletal: reports: denies history Neurological: reports: denies history Endocrine/Immune: reports: Diabetes, thyroid disorder Other Conditions: reports: denies history - PRIOR SURGERIES/PROCEDURES Surgical/Procedure History: reports: appendectomy, , hernia repair, bowel surgery, joint replacement (total R knee) - IMMUNIZATION STATUS Childhood Immunizations: See Nurse Assessment Flu Vaccine: See Nurse Assessment - FAMILY HISTORY Family History: reviewed, not pertinent - SOCIAL HISTORY Smoking: quit greater than 1 year Substance Use: none/never Alcohol Use Frequency: never Living Situation: family Physical Exam-General - PHYSICAL EXAM-ADULT Initial Vital Signs Reviewed: Yes - CONSTITUTIONAL General Appearance: appears well, alert, no apparent distress, obese - EYES Eyes: PERRL/EOMI, pink conjunctivae - HEAD, EARS, NOSE, MOUTH & THROAT HENMT: normocephalic/atraumatic, moist mucous membranes - NECK Neck: non-tender, full range of motion, supple, normal inspection - RESPIRATORY Respiratory: chest non-tender, normal breath sounds, crackles - CARDIOVASCULAR Cardiovascular: systolic murmur - GASTROINTESTINAL (ABDOMEN) Abdominal Exam: normal bowel sounds, non tender, soft - MUSCULOSKELETAL Extremity: normal range of motion, pedal edema (+2 up to mid ruiz B/L), swelling - SKIN Integumentary: normal color, warm/dry - NEUROLOGIC Neurologic: grossly normal - PSYCHIATRIC Psych/Mental Status: normal thought content, normal thought process, oriented x 3 Progress - PLAN OF CARE/RESULTS Progress/Plan/Lab Results: Vital Signs - 8 hr 11/20/18 15:01 11/20/18 17:24 Temperature 98.2 F Pulse Rate 78 78 Respiratory Rate 18 18 Blood Pressure 172/69 168/80 O2 Sat by Pulse Oximetry 92 L 97 Laboratory Results - last 24 hr 11/20/18 11/20/18 11/20/18 15:15 15:15 15:15 WBC 6.29 RBC 3.17 L Hgb 7.7 L Hct 27.3 L MCV 86.1 MCH 24.3 L MCHC 28.2 L RDW Std Deviation 14.9 H Plt Count 269 MPV 9.4 Immature Gran % (Auto) 0.3 Neut % (Auto) 61.9 Lymph % (Auto) 25.6 [place] % (Auto) 6.8 Eos % (Auto) 4.8 Baso % (Auto) 0.6 Immature Gran # (Auto) 0.02 Neut # (Auto) 3.89 Lymph # (Auto) 1.61 [place] # (Auto) 0.43 Eos # (Auto) 0.30 Baso # (Auto) 0.04 PT INR PTT (Actin FS) Sodium 142 Potassium 4.9 Chloride 100 Carbon Dioxide 26 Anion Gap 16 BUN 25 H Creatinine 1.5 H Estimated GFR/1.73 m2 35 BUN/Creatinine Ratio 17 Glucose 105 H Calculated Osmolality 288 Calcium 9.6 Total Bilirubin 0.16 L AST 22 ALT 18 Alkaline Phosphatase 83 Creatine Kinase 279 H Creatine Kinase Index 2.2 CK-MB (CK-2) 6.24 H Troponin T [id number] Pept 509 H Total Protein 7.0 Albumin 3.9 Globulin 3.1 Albumin/Globulin Ratio 1.3 11/20/18 11/20/18 15:15 15:15 WBC RBC Hgb Hct MCV MCH MCHC RDW Std Deviation Plt Count MPV Immature Gran % (Auto) Neut % (Auto) Lymph % (Auto) [place] % (Auto) Eos % (Auto) Baso % (Auto) Immature Gran # (Auto) Neut # (Auto) Lymph # (Auto) [place] # (Auto) Eos # (Auto) Baso # (Auto) PT 11.9 INR 0.82 PTT (Actin FS) 30.2 Sodium Potassium Chloride Carbon Dioxide Anion Gap BUN Creatinine Estimated GFR/1.73 m2 BUN/Creatinine Ratio Glucose Calculated Osmolality Calcium Total Bilirubin AST ALT Alkaline Phosphatase Creatine Kinase Creatine Kinase Index CK-MB (CK-2) Troponin T 0.031 Oaa-H-Uocgucatati Pept Total Protein Albumin Globulin Albumin/Globulin Ratio Orders Category Date Time Status Cardiac Monitoring DIRECTED Care 11/20/18 15:10 Active Oxygen Therapy- ED Nursing DIRECTED Care 11/20/18 15:10 Active Saline Loc NOW Care 11/20/18 15:10 Active CHEST-2 VIEWS [RAD] Stat Exams 11/20/18 15:09 Completed CBC WITH ELECTRONIC DIFF [HEME] Stat Lab 11/20/18 15:15 Completed CK PROFILE [SP CHEM] Stat Lab 11/20/18 15:15 Completed COMPREHENSIVE METABOLIC PANEL [CHEM] Stat Lab 11/20/18 15:15 Completed PROTIME WITH INR [COAG] Stat Lab 11/20/18 15:15 Completed PTT [COAG] Stat Lab 11/20/18 15:15 Completed TROPONIN T Stat Lab 11/20/18 15:15 Completed pro-bnp [PRO B-NATRIURETIC PEPTIDE] Stat Lab 11/20/18 15:15 Completed CP/SOB/Palp >45 yrs of Age Stat Oth 11/20/18 15:10 Ordered EKG [EKG] Stat Ther 11/20/18 15:10 Draft Result Diagrams: 11/20/18 15:15 11/20/18 15:15 - CONSULTS/PCP/HOSPITALIST Notification #1 *Consult/PCP/Hospitalist*: Dr. Ashley Time Discussed: 20:14 Reason/Comments: Pt admit- CHF Consult Disposition: Admit Departure - Departure Date of Disposition Decision: 11/21/18 Time of Disposition Decision: 01:02 DIAGNOSIS: CHF exacerbation Qualifiers: Heart failure type: unspecified Qualified Code(s): I50.9 - Heart failure, unspecified Disposition: ADMITTED INPATIENT 09 Certified Medical Emergency: Emergent Condition: Stable - Critical Care Note This patient required my direct & personal management of CC.: No Attestation - Physician/ KEYANA Attestation Patient care was provided by Advanced Practice Provider:: No The physician spent face to face time with patient:: Yes Advanced Practice Provider documentation review:: Supervising physician onsite and consulted in the evaluation and care of this patient. The physician did have a face to face encounter with the patient. This chart was documented by the indicated scribe, (Savannah Claros, Noemy) and accurately reflects the services I performed and decisions made by me, Alyson Nelson MD, as attested by the provider's signature.
[2018-11-21 02:47] LABS: HEMOGLOBIN A1C 5.6 % (4.8-6.0)
[2018-11-21] MEDS: TEFLARO 600 MG in NS 250 ML IV SCH ×2 (02:54→16:29)
[2018-11-21] MEDS: PAMELOR PO SCH ×2 (03:21→22:10)
[2018-11-21] MEDS: ZOSYN 3.375 GM in NS 50 ML IV SCH ×4 (04:32→22:09)
[2018-11-21 05:04] LABS: ALLEN TEST YES; BE 7.8 mmoll (-3.0-3.0); BLOOD TYPE ARTERIAL; METHB 1.2 % (0.0-1.5); O2(CT) 11.5 mL/dL (15.0-23.0); O2HB 95.1 % (95.0-99.0); PO2(98.6) 81 mmHg (60-100); SAMPLE BLOOD; SAO2 97.7 % (95.0-100.0); THB 8.5 g/dL (11.5-17.4); pH(98.6) 7.36 (7.35-7.45)
[2018-11-21 05:05] LABS: MODALITY CANNULA
[2018-11-21 05:07] LABS: PCO2(98.6) 61 mmHg (35-45)
[2018-11-21 07:06] LABS: BASO# 0.04 X1000 (0.0-0.2); BASO% 0.9 % (0.0-0.8); EOS# 0.27 X1000 (0.0-0.7); EOS% 6.3 % (0.0-10.0); HEMATOCRIT 25.1 % (37.0-47.0); HEMOGLOBIN 7.2 g/dL (12.0-16.0); LYMPH# 1.23 X1000 (1.2-3.4); LYMPH% 28.7 % (20.5-51.1); MCH 24.8 PG (27-31); MCHC 28.7 g/dL (33-37); MCV 86.6 FL (81-99); MONO# 0.42 X1000 (0.11-0.59); MONO% 9.8 % (1.7-9.3); MPV 9.5 FL (7.4-10.4); NEUT# 2.32 X1000 (1.4-6.5); NEUT% 54.3 % (42.2-75.2); PLT 259 X1000 (130-400); RDW 14.9 % (11.5-14.5); WBC 4.28 X1000 (4.8-10.8)
[2018-11-21 07:27] LABS: CALCIUM 9.4 mg/dL (8.8-10.2); CREATININE 1.5 mg/dL (0.5-0.9); EOS 4 % (1-10); LYMPHS 32 % (21-51); MONO 6 % (1-9); POTASSIUM 4.2 mmol/L (3.5-5.1); SEGS 58 % (42-75)
[2018-11-21 07:28] LABS: HYPOCHROM 1+
[2018-11-21] MEDS: HUMALOG SUBQ SCH ×4 (08:24→22:10)
[2018-11-21] MEDS: PRILOSEC PO SCH (08:32)
[2018-11-21] MEDS: FERROUS SULFATE PO SCH (08:33)
[2018-11-21] MEDS: SYNTHROID PO SCH (08:33)
[2018-11-21] MEDS: LASIX IV SCH ×2 (08:34→22:09)
[2018-11-21] MEDS: NEURONTIN PO SCH ×3 (08:34→16:29)
[2018-11-21] MEDS ORDERED: POTASSIUM CHLORIDE PO SCH (09:00)
[2018-11-21] MEDS ORDERED: PROTONIX PO SCH (09:00)
[2018-11-21] MEDS: ADVAIR 500/50 DISKUS INH SCH ×2 (09:03→20:00)
--- NOTE | 2018-11-21 18:16 | PROGRESS NOTE ---
DATE: 11/21/2018 SUBJECTIVE: This patient feels a little bit better. She is not complaining of shortness of breath or chest pain at this moment. She does have some erythema at the level of the lower extremities and 2 to 3+ edema as well, which as per the patient, is better. Echocardiogram done a couple of years ago showed an ejection fraction of 60% to 65%, but the pulmonary arterial pressure was elevated at 64 mmHg. There is pulmonary arterial hypertension, which probably is causing diastolic heart failure with a subsequent fluid overload. She does have some chronic kidney disease since and seems to be at baseline at this moment. OBJECTIVE: Vital Signs: Temperature 97.8 degrees, pulse 57, respiratory rate 20, blood pressure 160/60, oxygen saturation 94 on room air. HEENT: Head normocephalic, no trauma. PERRLA. Neck: Supple. No JVD. No masses. Central trachea. Chest: Clear to auscultation. No wheezing. No rales. Abdomen: Soft, obese, protuberant. Nontender, nondistended. No hepatosplenomegaly. Some wall edema. Extremities: There is 2+ to 3+ lower extremity edema. No clubbing. No cyanosis. She does have some redness at the level of the distal portion of the legs, warm, not painful. Mild tenderness to palpation. Neurological: The patient is completely alert and oriented x3. No focal deficits. LABORATORY: WBC 4.2, hemoglobin 7.2, hematocrit 25.1, platelets 259,000. Sodium 140, potassium 4.2, chloride 98, bicarbonate 32, BUN 22, creatinine 1.5, glucose 88, calcium 9.4. ASSESSMENT AND PLAN: 1. Chronic diastolic heart failure with cor pulmonale, pulmonary edema. We will continue with Lasix 60 IV twice a day. At home, she is using 40 mg daily. Tomorrow I will adjust her Lasix, and we will monitor her kidney function closely. So far, there is a report of 1.6 L negative balance. 2. Bilateral lower extremity cellulitis. This patient has been started on Flagyl and Zosyn. We will monitor. 3. Anemia of chronic disease. Hemoglobin dropped from 7.7 to 7.2. We will monitor the hemoglobin and hematocrit on a daily basis. 4. Chronic kidney disease. Compared with yesterday, this about the same. No changes. We will monitor this closely. 5. Type 2 diabetes. Hemoglobin A1c is 5.6. It looks like this patient is taking care of the blood sugar at home. 6. Hypertension. Continue with the same management. 7. Hypothyroidism. Continue with Synthroid. 8. Morbid obesity. Diet and exercise have been discussed. 9. History of chronic obstructive pulmonary disease, not in exacerbation at this moment. We will continue with oxygen. ABG showed CO2 retention, likely due to her chronic obstructive pulmonary disease. cc: Brett Benitez MD
[2018-11-21] MEDS: LOVENOX SUBQ SCH (22:11)
--- NOTE | 2018-11-21 23:54 | ECHO REPORT ---
ORDER DATE: 11/21/2018 SUMMARY: 1. Technically difficult study due to limited acoustic window quality. Intravenous echo contrast agent, Optison, was utilized to enhance endocardial definition. 2. Aortic valve is trileaflet and appears to open adequately on 2-dimensional images. Peak gradient across aortic valve by Doppler is 46 mmHg with a mean gradient of 26 mmHg. The calculated aortic valve area by Doppler is 1.2 to 1.3 cm2. Moderate aortic stenosis is suggested. Mitral and tricuspid valves are without evidence of structural abnormality while pulmonic valve is not demonstrated. There is mild mitral regurgitation. Aortic root is normal size. 3. Normal left ventricular dimensions demonstrated. Estimated left ventricular ejection fraction appears to be at least 65%. No regional wall abnormalities can be appreciated. Left atrium, right atrium, right ventricle are normal size with grossly preserved right ventricular systolic function. 4. No pericardial effusion. 5. Appearance of inferior vena cava suggests normal central venous pressure. cc: MD Nathaniel Guido MD
[2018-11-22] MEDS: TEFLARO 600 MG in NS 250 ML IV SCH ×2 (01:12→12:41)
[2018-11-22] MEDS: ZOSYN 3.375 GM in NS 50 ML IV SCH ×4 (03:44→21:55)
[2018-11-22] MEDS: HUMALOG SUBQ SCH ×4 (06:02→21:55)
[2018-11-22] MEDS: SYNTHROID PO SCH (06:03)
[2018-11-22] MEDS: PRILOSEC PO SCH (06:03)
[2018-11-22] MEDS: ADVAIR 500/50 DISKUS INH SCH ×2 (07:37→20:00)
[2018-11-22 08:04] LABS: CALCIUM 8.9 mg/dL (8.8-10.2); CREATININE 1.5 mg/dL (0.5-0.9); POTASSIUM 3.9 mmol/L (3.5-5.1)
[2018-11-22 08:13] LABS: BASO# 0.05 X1000 (0.0-0.2); BASO% 1.1 % (0.0-0.8); EOS# 0.24 X1000 (0.0-0.7); EOS% 5.4 % (0.0-10.0); HEMATOCRIT 27.9 % (37.0-47.0); LYMPH# 1.29 X1000 (1.2-3.4); LYMPH% 29.3 % (20.5-51.1); MCH 24.7 PG (27-31); MCHC 28.7 g/dL (33-37); MCV 86.1 FL (81-99); MONO# 0.42 X1000 (0.11-0.59); MONO% 9.5 % (1.7-9.3); MPV 9.6 FL (7.4-10.4); NEUT# 2.41 X1000 (1.4-6.5); NEUT% 54.7 % (42.2-75.2); PLT 280 X1000 (130-400); RBC 3.24 XMIL (4.2-5.4); RDW 14.9 % (11.5-14.5); WBC 4.41 X1000 (4.8-10.8)
[2018-11-22 08:18] LABS: CHOLESTEROL 178 mg/dL (0-200); HDL 48 mg/dL (45-65); LDL 84 mg/dL; MAGNESIUM 1.4 mg/dL (1.5-2.7); TRIGLYCERIDES 232 mg/dL (35-135); VLDL 46 mg/dL
[2018-11-22] MEDS: FERROUS SULFATE PO SCH (09:28)
[2018-11-22] MEDS: NEURONTIN PO SCH ×3 (09:28→16:34)
[2018-11-22] MEDS: LASIX IV SCH ×2 (09:28→21:56)
[2018-11-22] MEDS ORDERED: MAGNESIUM SULFATE 2 GM/S.W.I. 2 GM/50 ML IVPB IV ONE (11:34)
--- NOTE | 2018-11-22 13:17 | PROGRESS NOTE ---
DATE: 11/22/2018 SUBJECTIVE: This patient is feeling better, no acute events overnight. She does have some erythema at the level of the lower extremities and 2+ to 3+ lower extremity edema as well. She does have some pulmonary arterial hypertension in a previous echocardiogram. New echocardiogram showed an ejection fraction of 65% with possible moderate aortic stenosis. OBJECTIVE: Vital Signs: Temperature 98.6 degrees, pulse 82, respiratory rate 20, blood pressure 131/57, oxygen saturation 93 on 2 L of nasal cannula. HEENT: Head normocephalic, no trauma. PERRLA. Neck: Supple. No JVD. No masses. Central trachea. Chest: Clear to auscultation. No wheezing. No rales. Abdomen: Soft, nontender, nondistended. No hepatosplenomegaly. Extremities: There is 2+ to 3+ lower extremity edema. No clubbing. No cyanosis. She does have some redness at the level of the distal portion of the legs that is warm, but not painful. Neurological examination: Alert and oriented x3. No focal deficits. LABORATORY: WBC 4.4, hemoglobin 8, hematocrit 27.9, platelets 280. Sodium 143, potassium 3.9, chloride 97, bicarbonate 33. BUN 16, creatinine 1.5, glucose 139, calcium 8.9, magnesium 1.4. ASSESSMENT AND PLAN: 1. Chronic diastolic heart failure with cor pulmonale, pulmonary edema. We will continue with Lasix twice a day. At home, she is using 40 mg daily. There is a negative balance and so far 4.7 L has been removed. We will continue with the same management. Probably this patient will be discharged in the next 24 to 48 hours. She is feeling better. 2. Bilateral lower extremity cellulitis. Continue with the same management. She has been placed on ceftaroline and Zosyn. 3. Anemia of chronic disease. Hemoglobin better compared with yesterday. We will continue to monitor. 4. Chronic kidney disease. This is her baseline. We will continue with diuresis. 5. Type 2 diabetes. Hemoglobin A1c 5.6, stable. Continue with same management. 6. Hypertension. Continue with same treatment. 7. Hypothyroidism. Continue with Synthroid. 8. Possible moderate aortic stenosis by echocardiogram, aware. 9. History of chronic obstructive pulmonary disease, not in exacerbation at this moment. Continue with oxygen. She is on home oxygen around 2 to 3 liters. Continue with same treatment. cc: Brett Benitez MD
--- NOTE | 2018-11-22 14:06 | Diag Imaging Result Doc PS360 ---
EXAM: CHEST-2 VIEWS - 11/22/2018 HISTORY: pulmonary edema TECHNIQUE: Chest two views COMPARISON: 11/20/2018 FINDINGS: There is stable mild cardiomegaly. There is stable prominence of central vascular markings. There is been apparent decrease in ill-defined basilar infiltrates. There is no pleural effusion or pneumothorax identified. IMPRESSION: Decrease in ill-defined basilar infiltrates. Electronically signed by Alhaji Domingo 11/22/2018 2:04 PM
[2018-11-22] MEDS: ULTRAM PO PRN (15:25)
[2018-11-22] MEDS: LOVENOX SUBQ SCH (21:56)
[2018-11-22] MEDS: PAMELOR PO SCH (21:56)
[2018-11-23] MEDS: TEFLARO 600 MG in NS 250 ML IV SCH ×2 (00:24→12:57)
[2018-11-23] MEDS: ZOSYN 3.375 GM in NS 50 ML IV SCH ×4 (03:54→20:27)
[2018-11-23] MEDS: HUMALOG SUBQ SCH ×4 (06:11→20:21)
[2018-11-23] MEDS: PRILOSEC PO SCH (06:12)
[2018-11-23] MEDS: SYNTHROID PO SCH (06:12)
[2018-11-23 07:35] LABS: BASO# 0.04 X1000 (0.0-0.2); BASO% 0.9 % (0.0-0.8); EOS# 0.27 X1000 (0.0-0.7); HEMATOCRIT 29.3 % (37.0-47.0); HEMOGLOBIN 8.3 g/dL (12.0-16.0); LYMPH# 1.43 X1000 (1.2-3.4); MCH 24.6 PG (27-31); MCHC 28.3 g/dL (33-37); MCV 86.9 FL (81-99); MONO# 0.44 X1000 (0.11-0.59); MONO% 9.8 % (1.7-9.3); MPV 9.1 FL (7.4-10.4); NEUT# 2.29 X1000 (1.4-6.5); NEUT% 51.3 % (42.2-75.2); PLT 268 X1000 (130-400); RBC 3.37 XMIL (4.2-5.4); RDW 15.1 % (11.5-14.5); WBC 4.47 X1000 (4.8-10.8)
[2018-11-23] MEDS: ADVAIR 500/50 DISKUS INH SCH ×2 (07:36→19:55)
[2018-11-23 07:59] LABS: CALCIUM 9.1 mg/dL (8.8-10.2); CREATININE 1.7 mg/dL (0.5-0.9)
[2018-11-23] MEDS: FERROUS SULFATE PO SCH (08:35)
[2018-11-23] MEDS: NEURONTIN PO SCH ×3 (08:35→20:24)
[2018-11-23] MEDS ORDERED: LASIX PO SCH (09:00)
[2018-11-23] MEDS: ULTRAM PO PRN ×2 (13:14→20:29)
--- NOTE | 2018-11-23 14:12 | PROGRESS NOTE ---
DATE: 11/23/2018 SUBJECTIVE: No acute events overnight. Her creatinine increased from 1.5 to 1.7 but BUN decreased from 16 to 13. She is feeling better, weak. I have requested physical therapy evaluation. OBJECTIVE: Vital Signs: Temperature 98.1 degrees, pulse 74, respiratory rate 18, blood pressure 146/38, oxygen saturation 99 on room air. HEENT: Head normocephalic. No trauma. PERRLA. Neck: Supple. No JVD. No masses. Central trachea. Chest: Clear to auscultation. No wheezing, no rales. Abdomen: Soft, nontender, nondistended. No hepatosplenomegaly. Extremities: 2+ to 3+ lower extremity edema. No clubbing. No cyanosis. She does have some redness at the level of the distal portion of the legs that is painful, warm. Neurologic: Alert and oriented x3. No focal deficits. LABORATORY: WBC 4.4, hemoglobin 8.3, hematocrit 29.3, platelets 268,000. Sodium 145, potassium 4.0, chloride 98, bicarbonate 34, BUN 13, creatinine 1.7, glucose 131, calcium 9.1. ASSESSMENT AND PLAN: 1. Chronic diastolic heart failure with cor pulmonale, pulmonary edema, will continue with Lasix twice a day but I switched it to p.o., at home she is using 40 mg daily. So far we have a negative balance of 8 L. 2. Bilateral lower extremity cellulitis. Continue with same management. 3. Anemia of chronic disease. Hemoglobin and hematocrit has been stable. 4. Chronic kidney disease, creatinine increased a little bit compared with yesterday but BUN decreased a little bit, will continue to monitor. I have decreased the dose of the Lasix. 5. Type 2 diabetes, hemoglobin A1c 5.6, stable. 6. Hypertension. Continue same management. 7. Hypothyroidism. Continue with Synthroid. 8. Possible moderate aortic stenosis by echocardiogram, aware. 9. History of chronic obstructive pulmonary disease, not in exacerbation at this moment. She is on home O2 around 2 to 3 L. Continue with same treatment. cc: Brett Benitez MD
[2018-11-23] MEDS: CLARITIN PO SCH (16:02)
[2018-11-23] MEDS: LASIX PO SCH (20:24)
[2018-11-23] MEDS: PAMELOR PO SCH (20:25)
[2018-11-23] MEDS: LOVENOX SUBQ SCH (20:25)
[2018-11-24] MEDS: TEFLARO 600 MG in NS 250 ML IV SCH (01:10)
[2018-11-24] MEDS: ZOSYN 3.375 GM in NS 50 ML IV SCH ×2 (03:02→10:16)
[2018-11-24] MEDS: HUMALOG SUBQ SCH (06:24)
[2018-11-24 07:38] LABS: BASO# 0.06 X1000 (0.0-0.2); BASO% 1.3 % (0.0-0.8); EOS# 0.38 X1000 (0.0-0.7); EOS% 8.4 % (0.0-10.0); HEMATOCRIT 28.4 % (37.0-47.0); HEMOGLOBIN 7.9 g/dL (12.0-16.0); LYMPH# 1.18 X1000 (1.2-3.4); MCH 24.4 PG (27-31); MCHC 27.8 g/dL (33-37); MCV 87.7 FL (81-99); MONO# 0.49 X1000 (0.11-0.59); MONO% 10.8 % (1.7-9.3); MPV 9.6 FL (7.4-10.4); NEUT# 2.42 X1000 (1.4-6.5); NEUT% 53.5 % (42.2-75.2); PLT 263 X1000 (130-400); RBC 3.24 XMIL (4.2-5.4); RDW 14.9 % (11.5-14.5); WBC 4.53 X1000 (4.8-10.8)
[2018-11-24 07:47] VITALS: BP 119/44
[2018-11-24 08:04] LABS: ALB/GLOB RATIO 1.3; ALBUMIN 3.8 g/dL (3.5-5.0); CALCIUM 8.7 mg/dL (8.8-10.2); CREATININE 1.8 mg/dL (0.5-0.9); POTASSIUM 3.9 mmol/L (3.5-5.1); TOTAL BILIRUBIN 0.23 mg/dL (0.20-1.00); TOTAL PROTEIN 6.7 g/dL (6.3-8.3)
[2018-11-24] MEDS: ADVAIR 500/50 DISKUS INH SCH (08:05)
[2018-11-24] MEDS ORDERED: KLOR-CON PO SCH (09:00)
[2018-11-24] MEDS: PRILOSEC PO SCH (10:14)
[2018-11-24] MEDS: CLARITIN PO SCH (10:15)
[2018-11-24] MEDS: SYNTHROID PO SCH (10:15)
[2018-11-24] MEDS: LASIX PO SCH (10:15)
[2018-11-24] MEDS: FERROUS SULFATE PO SCH (10:15)
[2018-11-24] MEDS: NEURONTIN PO SCH (10:16)
--- NOTE | 2018-11-24 14:21 | DISCHARGE SUMMARY ---
ADMISSION DATE: 11/20/2018 DISCHARGE DATE: 11/24/2018 ADMITTING DIAGNOSES: 1. Acute cor pulmonale with pulmonary edema. 2. Bilateral lower extremity cellulitis. 3. Anemia of chronic disease. 4. Chronic kidney disease. 5. Diabetes mellitus type 2. 6. Hypertension. 7. Hypothyroidism. 8. Morbid obesity. DISCHARGE DIAGNOSES: 1. Chronic diastolic heart failure with cor pulmonale, pulmonary edema. Continue with Lasix p.o. at home. Will be on oxygen at home as well. 2. Bilateral lower extremity cellulitis. 3. Anemia of chronic disease, stable. 4. Chronic kidney disease, stable. 5. Diabetes mellitus type 2. 6. Hypertension. 7. Hypothyroidism. 8. Possible moderate aortic stenosis by echocardiogram. 9. History of chronic obstructive pulmonary disease, no exacerbation at this time but will go home with home oxygen. CONSULTATIONS: None. SURGERIES OR PROCEDURES: None. HOSPITAL COURSE: On 11/20/2018, Ms. Юлия Nuno, a 63-year-old morbidly obese female with multiple medical conditions including asthma, COPD, morbid obesity, diabetes, hypertension, cor pulmonale, and chronic hypercapnic respiratory failure, presented to the emergency department with complaints of shortness of breath. She has had at least 2 hospital admits recently for pulmonary edema and cor pulmonale and also hypercapnic respiratory failure. Apparently since her last admission which was in 08/2018, she has had good diuresis with liters of fluid removed from her system and has been feeling fine, at least for a week after that admission. She started noticing some shortness of breath which, according to her, is usual or normal for her. But over the last 2 weeks became progressively worse and noticed more swelling in the lower extremities. The who is at the bedside reported episodes of her stopping breathing, and apparently she has been diagnosed with sleep apnea and was supposed to be receiving a CPAP machine in the next few days. She has also had recent treatment of bilateral lower extremity cellulitis with cephalexin for 10 days but had no clinical improvement and was given clindamycin for 7 days, and now they are basically the same, and that is reason she actually came into the emergency department. Because of the shortness of breath and the cellulitis, she was admitted to the hospital. She was given treatment of Lasix due to the acute cor pulmonale. She was given 60 mg IV twice daily. For the cellulitis, she was started on Teflaro 600 mg IV every 12 hours along with Zosyn. She is going to be transitioned from IV Lasix to 40 p.o. daily. So far, she has had a negative balance of 8 L since admission. She will be sent home with oxygen 2 to 3 L. She will need to do her CPAP at home as well for the obstructive sleep apnea. On her echocardiogram that she had performed, she had possible moderate aortic stenosis. DISCHARGE VITAL SIGNS: Temperature is 98.4, heart rate 78, respiratory rate 18, blood pressure 119/44, O2 saturation 98% on 2 L. DISCHARGE LAB DATA: White blood cells 4000, hemoglobin 7.9, hematocrit 28.4, platelet count 263. Sodium is 143, potassium 3.9, BUN is 13, creatinine 1.8, glucose 123, calcium 8.7, bilirubin 0.23, AST is 15, ALT is 12. Triglycerides 232, cholesterol total is 178, LDL is 84, HDL is 48. PERTINENT IMAGING: Chest x-ray on 11/20/2018 nonspecific finding. There are ill-defined bibasilar infiltrates that are similar to before and a repeat chest x-ray on 11/22/2018 showed the same thing, there was no change. The echocardiogram she had on 11/21/2018 with moderate aortic stenosis is suggested, mild MR, ejection fraction 65%. EKG is normal sinus rhythm, first degree AV block, rate 81, QTC is 476. DISCHARGE DIET: Diabetic diet, heart healthy, low sodium. DISCHARGE ACTIVITY: As tolerated. Weigh yourself daily. DISCHARGE INSTRUCTIONS: Follow a low sodium diet. Take your medications as prescribed. Make sure you weigh yourself on a daily basis. If your condition changes, contact a physician and/or return to the emergency department. Changes made include but are not limited to shortness of breath, increased fatigue, excessive bleeding, unexplained weight loss or gain, unimaginable pain, signs or symptoms of infection. Take care to prevent falls. DISCHARGE MEDICATIONS: 1. Advair 500/50 inhaled twice daily. 2. Neurontin 300 mg p.o. t.i.d. 3. Glipizide 10 mg p.o. daily. 4. Metformin 1000 mg p.o. twice daily. 5. Nortriptyline 25 mg p.o. nightly. 6. Potassium chloride 20 mEq p.o. daily. 7. Protonix 40 mg p.o. daily. 8. Super B complex tablet 400 mcg p.o. daily. 9. Synthroid 150 mcg p.o. daily. 10.Claritin 10 mg p.o. daily. 11.DuoNeb, albuterol and Atrovent every 2 hours as needed. 12.Ferrous sulfate 325 mg p.o. daily. 13.Lasix 40 mg p.o. daily. 14.Mucinex 600 mg p.o. twice daily. 15.Lisinopril 5 mg p.o. daily but is to hold for 4 to 5 days after discharge. 16.Albuterol inhaler every 6 hours p.r.n. DISCHARGE FOLLOWUP: Physician followup with Dr. Elizalde which is scheduled for 11/27/2018 at 0915. DISCHARGE DISPOSITION: Home. Discharged time : 30 + minutes Dictated by VANIA Miranda for Brett Benitez MD cc: VANIA Miranda MD MTDD
--- NOTE | 2018-11-25 09:03 | Extremity Venous Study ---
PROCEDURE NAME: Venous U/S Bilateral Legs - 11/21/2018 REQUESTING PHYSICIAN: Dr. Ashley. ORTHOTIC PRACTITIONER: Juan F. INDICATIONS: Edema and cellulitis, bilateral lower extremities. EQUIPMENT: [email or web address] Vivid E9 ultrasound system a 9 L-D transducer. TECHNIQUE: Images of bilateral lower extremity venous systems were obtained in both sagittal and transverse planes. Doppler was used to evaluate veins for spontaneity, phasicity, respiratory excursion, and digital augmentation. RESULTS: Technically difficult study secondary to patient's morbid obesity but no obvious superficial or deep venous thrombosis noted. INTERPRETATION: Essentially normal bilateral lower extremity venous study but limited secondary to body habitus. cc: MD Nathaniel Lozano MD
== END 2018-11-24 11:25 | disposition home or self-care (01) | DRG 291 ==
LOC: ED 14:42 → EDIPHOLD 11-21 00:33 → SUATTDRO 11-21 00:33 → 3N 11-21 12:00
PROVIDERS: ATTEND Internal Medicine
CPT/HCPCS: 51702; 71020; 71046; 80048; 80053; 80061; 82550; 82553; 82805; 82948; 83036; 83735; 83880; 84484; 85025; 85610; 85730; 87040; 93005; 93306; 93308; 93970; 94640; 94761; 96365; 96366; 96367; 96372; 96375; 99285; A9270; C8924; J0712; J1650; J1815; J1940; J2543; J3475; J7050; Q9957; XXXXX